=== PATIENT | male | born 1960 | race Caucasian/White ===

== ENCOUNTER → 2017-02-03 11:25 | Outpatient (CLI) | payer MEDICARE ==
[2015-12-18 06:51] VITALS: BMI 35.0
[~2017-02-03 11:25] MED LIST: ADVIL200 MG PO; BAYER CHEWABLE81 MG PO; CLARITIN 10 MG10 MG PO; IMDUR30 MG PO; IPRAT-ALBUT 0.5-3 ML UPD; ISOSORBIDE DINI30 MG PO; LIPITOR20 MG PO; LISINOPRIL10 MG PO; MULTIPLE VITAMI1 TA1 PO; NEXIUM20 MG PO; NEXIUM40 MG PO; NITROSTAT0.4 MG SL; PLAVIX75 MG PO; PREVACID15 MG PO; PROVENTIL HFA6.7 GM; PROVENTIL HFA6.7 GM INH; REQUIP0.5 MG PO; SINGULAIR10 MG PO; SYMBICORT 16010.2 GM INH; SYMBICORT 80-10.2 GM INH; THEO-24200 MG PO; THEOCHRON200 MG PO; VITAMIN B-1000 MCG/M IM; VITAMIN B-122500 MCG PO; XANAX0.5 MG PO; ZOLOFT50 MG PO
== END | disposition home or self-care (01) ==
LOC: D.CT 11:25
DX: R10.31 Right lower quadrant pain (principal)

== ENCOUNTER → 2017-04-14 08:40 | Outpatient (CLI) | payer MEDICARE ==
[2015-12-18 06:51] VITALS: BMI 35.0
--- NOTE | ~2017-04-14 | EMG ---
PATIENT:MARCELLUS EDWARDS DATE OF SERVICE: 04/14/17 MEDICAL RECORD: [id number] DATE OF : 64 LOCATION: [facility] ADMISSION DATE: REFERRING PHYSICIAN: CLEVELAND MATTSON MD INTERPRETING PHYSICIAN: CLEVELAND MATTSON MD DATE OF SERVICE: 04/14/2017 Referred by myself as an outpatient. DATE OF EXAMINATION: 04/14/2017. ELECTROMYOGRAPHIC DATA: Electromyographic examination is limited to both upper extremities. In the right upper extremity; right median motor stimulation elicits a compound motor action potential with a distal latency of 4.0 milliseconds, peak amplitude of 3 millivolts, and calculated conduction velocity of 42 meters per second. Right ulnar motor stimulation elicits a compound motor action potential with a distal latency of 2.9 milliseconds, peak amplitude of 8 millivolts, and calculated conduction velocity of 62 meters per second. Right ulnar motor stimulation across the elbow fails to elicit evidence of conduction block at this level. Antidromic right median sensory stimulation elicits a response with a distal latency of 4.1 milliseconds, amplitude of 14 microvolts, and calculated conduction velocity of 53 meters per second. Antidromic right ulnar sensory stimulation elicits a response with a distal latency of 3.6 milliseconds, amplitude of 9 microvolts, and calculated conduction velocity of 41 meters per second. The right median F wave has a latency of 26 milliseconds. In the left upper extremity; left median motor stimulation elicits a compound motor action potential with a distal latency of 4.1 milliseconds, peak amplitude of 3 millivolts, and calculated conduction velocity of 57 meters per second. Left ulnar motor stimulation elicits a compound motor action potential with a distal latency of 2.8 milliseconds, peak amplitude of 6 millivolts, and calculated conduction velocity of 61 meters per second. Left ulnar motor stimulation across the elbow fails to elicit evidence of conduction block at this level. Antidromic left median sensory stimulation elicits a response with a distal latency of 3.7 milliseconds, amplitude of 12 microvolts, and calculated conduction velocity of 70 meters per second. Antidromic left ulnar sensory stimulation elicits a response with a distal latency of 3.1 milliseconds, amplitude of 8 microvolts, and calculated conduction velocity of 50 meters per second. The left median F wave has a latency of 27 milliseconds. Needle electrode examination is limited to both upper extremities as well. Muscles interrogated include the abductor pollicis brevis, first dorsal interosseous, abductor digiti minimi, pronator teres, biceps brachii, triceps and deltoid. There is no abnormality of insertional activity and no abnormal spontaneous activity is seen in all muscles interrogated. Motor unit potential morphology and the pattern of motor unit potential firing and recruitment is normal in all muscles sampled. INTERPRETATION: Electromyographic examination of both upper extremities is indicative of median neuropathy, at or distal to the wrists bilaterally, right greater than left, mild to moderate in degree electrically on the right, consistent with the diagnosis of bilateral carpal tunnel syndrome. There is no ELECTROMYGRAM/NERVE CONDUCTION [id number] MARCELLUS EDWARDS electrical evidence of a superimposed cervical radiculopathy or other lesion of the lower motor neuron in the upper extremities at this time. There is no evidence of active denervation. TRANSINT:[id number] Voice Confirmation ID: [id number] DOCUMENT ID: [id number] CLEVELAND MATTSON MD CC: [id number] DICTATION DATE: 04/15/17 0755 PRESCHOOL PARAPROFESSIONAL: 04/15/17 1245 DEP CLI 04/14/17 [id number] [place] [address]
== END | disposition home or self-care (01) ==
LOC: D.CN 08:40
DX: G56.00 Carpal tunnel syndrome, unspecified upper limb (principal); M72.2 Plantar fascial fibromatosis; G60.9 Hereditary and idiopathic neuropathy, unspecified

== ENCOUNTER 2017-05-17 08:51 | Day surgery (SDC) | payer MEDICARE ==
[2017-05-17] MEDS ORDERED: PROTONIX40 MG PO (09:08)
[2017-05-17] MEDS ORDERED: SYMBICORT 16010.2 GM INH (09:09)
[2017-05-17] MEDS ORDERED: CYMBALTA30 MG PO (09:10)
[2017-05-17] MEDS ORDERED: XANAX0.5 MG PO (09:13)
[2017-05-17] MEDS ORDERED: TUMERIC CURCUMIN (09:14)
[2017-05-17] MEDS ORDERED: VENTOLIN HFA18 GM INH (09:15)
[2017-05-17 09:25] VITALS: BP 121/77; BMI 35.0
[2017-05-17 11:15] LABS: HEMATOCRIT 37.6 % (42.0-54.0); HEMOGLOBIN 13.2 g/dL (13.5-17.5); MCH 29.7 pg (26.0-34.0); MCHC 35.1 g/dL (31.0-37.0); MCV 84.7 fL (80.0-100.0); MEAN PLATELET VOLUME 9.4 fL (7.4-10.4); RBC 4.44 10x6/uL (4.20-6.10); RDW 12.8 % (11.5-14.5); WBC 5.1 10x3/uL (4.8-10.8)
[2017-05-17] MEDS ORDERED: MEPERIDINE HCL50 MG PO (11:41)
--- NOTE | 2017-05-17 16:46 | OP ---
PATIENT NAME: MARCELLUS EDWARDS MEDICAL RECORD: [id number] :64 LOCATION:D.OPS ADMISSION DATE: SURGEON: MARCOS ZACARIAS MD DATE OF OPERATION: 05/17/2017 PREOPERATIVE DIAGNOSIS: Carpal tunnel syndrome of the right hand wrist. POSTOPERATIVE DIAGNOSIS: Carpal tunnel syndrome of the right hand wrist. PROCEDURE: Carpal tunnel release, right wrist. SURGEON: Marcos Zacarias MD ANESTHESIA: General. INTRAOPERATIVE COMPLICATIONS: None. SUMMARY OF PATHOLOGIC FINDINGS: The patient had a very large very tight transverse carpal ligament consistent with the preoperative diagnosis, EMGs, and NCVS. OPERATIVE SUMMARY IN DETAIL: After obtaining the appropriate preoperative orthopedic surgery consent as well as anesthetic consultation, evaluation and clearance, the patient was brought to the operating room and placed on the operating table in supine position. After adequate regional anesthesia had been administered and checked this anesthesia was regional, tourniquet was placed about the proximal aspect of the right upper extremity. Right upper extremity was prepped and draped in routine sterile fashion. The arm was elevated and exsanguinated, tourniquet inflated to 250 mmHg. An incision made in line to the mid palmar crease, fourth metacarpal ray, taken down to the distal aspect. The transverse carpal ligament was identified. A small incision made and the median nerve was identified. The very robust and thickened transverse carpal ligament was released in its entirety under direct visualization of the nerve. Having completed this, wound was copiously irrigated and closed with 4-0 Prolene with combination of mattress and interrupted sutures. After finishing this, sterile dressings were applied. Tourniquet was deflated. The patient was then taken to recovery room in stable condition. All final needle and sponge counts were correct. TRANSINT:[id number] Voice Confirmation ID: [id number] DOCUMENT ID: [id number] MARCOS ZACARIAS MD at 1646 CC: [id number] DICTATION DATE: 05/17/17 1317 DELIVERY REPRESENTATIVE: 05/17/17 1413 [facility] 05/17/17 [facility] [address] [place] [address]
== END 2017-05-17 12:50 | disposition home or self-care (01) ==
LOC: D.OPS 08:51 → D.PAN 19:00 → D.OPS 19:00
PROVIDERS: Orthopaedic Surgery
DX: G56.01 Carpal tunnel syndrome, right upper limb (principal); J45.909 Unspecified asthma, uncomplicated; J44.9 Chronic obstructive pulmonary disease, unspecified; G47.30 Sleep apnea, unspecified; K21.9 Gastro-esophageal reflux disease without esophagitis; I10 Essential (primary) hypertension; I25.10 Atherosclerotic heart disease of native coronary artery without angina pectoris; G25.81 Restless legs syndrome; Z01.812 Encounter for preprocedural laboratory examination

== ENCOUNTER 2017-06-10 07:56 | Day surgery (SDC) | payer MEDICARE ==
[~2017-06-10] VITALS: Ht 172.7 cm; Wt 108.4 kg
[~2017-06-10 07:56] MED LIST changes: +CYMBALTA30 MG PO; +MEPERIDINE HCL50 MG PO; +PROTONIX40 MG PO; +TUMERIC CURCUMIN; +VENTOLIN HFA18 GM INH
[2017-06-10 08:41] VITALS: BP 115/84; Ht 172.7 cm; Wt 108.4 kg
[2017-06-10 09:17] LABS: HEMATOCRIT 42.8 % (42.0-54.0); HEMOGLOBIN 14.8 g/dL (13.5-17.5); MCH 29.9 pg (26.0-34.0); MCHC 34.6 g/dL (31.0-37.0); MCV 86.5 fL (80.0-100.0); MEAN PLATELET VOLUME 9.2 fL (7.4-10.4); RBC 4.95 10x6/uL (4.20-6.10); WBC 6.9 10x3/uL (4.8-10.8)
--- NOTE | 2017-06-10 16:02 | NUR ---
1345 IV DC WITH CATHER TIP INTACT
--- NOTE | 2017-07-12 14:52 | OP ---
PATIENT NAME: MARCELLUS EDWARDS MEDICAL RECORD: [id number] :64 LOCATION:D.OPS ADMISSION DATE: SURGEON: MARCOS ZACARIAS MD DATE OF OPERATION: 06/10/2017 PREOPERATIVE DIAGNOSIS: Carpal tunnel syndrome of the left wrist. POSTOPERATIVE DIAGNOSIS: Carpal tunnel syndrome of the left wrist. PROCEDURE: Left carpal tunnel release. SURGEON: Marcos Zacarias MD ANESTHESIA: General. INTRAOPERATIVE COMPLICATIONS: None. SUMMARY OF PATHOLOGIC FINDINGS: The patient had a very tight transverse carpal ligament consistent with the preoperative diagnosis. OPERATIVE SUMMARY IN DETAIL: After obtaining the appropriate preoperative orthopedic surgery consent as well as anesthetic consultation, evaluation and clearance, the patient was brought to the operating room and placed on the operating table in supine position. After adequate general laryngeal mask airway was administered, the patient's left upper extremity was prepared with a tourniquet about the proximal aspect. Upper extremity was then prepped and draped in routine sterile fashion. The arm was elevated and exsanguinated, tourniquet was inflated to 350 mmHg. A proximal palmar incision was made in line with the fourth metacarpal taken down to the level of the transverse carpal ligament. This was identified. A small incision was made and the median nerve was identified. At this point, it was protected through the rest of the case with the Mccormick elevator and then under direct visualization, the entire transverse carpal ligament was released to the proximal wrist crease. Having completed this, the wound was irrigated and closed with 4-0 Prolene in a combination of simple and mattress sutures. The area was locally infiltrated with 0.25% Marcaine plain. Sterile dressings were applied. Tourniquet was deflated. The patient was awakened, taken to recovery in stable condition. All final needle and sponge counts were correct. TRANSINT:[id number] Voice Confirmation ID: [id number] DOCUMENT ID: [id number] DEANN GARCIA, MARCOS MONTEIRO at 1452 CC: [id number] DICTATION DATE: 07/12/17 1318 WEB PRESS OPERATOR ASSISTANT: 07/12/17 1333 [facility] 06/10/17 [place] [address]
== END 2017-06-10 14:00 | disposition home or self-care (01) ==
LOC: D.OPS 07:56 → D.PAN 14:00
PROVIDERS: Anesthesiology
DX: G56.02 Carpal tunnel syndrome, left upper limb (principal)

== ENCOUNTER 2017-06-28 07:36 | Outpatient (CLI) | payer MEDICARE ==
[~2017-06-28] VITALS: Ht 172.7 cm; Wt 104.5 kg
--- NOTE | ~2017-06-28 | HEMODYNAMI ---
PATIENT:MARCELLUS EDWARDS MEDICAL RECORD: [id number] : 64 LOCATION:D.CAT ADMISSION DATE: 06/28/17 Generatedon:06/28/20179:33 Patient name: MARCELLUS EDWARDS Patient #: [id number] SSN: : 1960 Date of study: 06/28/2017 Page: Of Hemodynamic Procedure Report Patient Data Patient Demographics Procedure consent was obtained First Name: MARCELLUS Gender: Male Last Name: GRACE : 1960 Middle Initial: PAUL Age: 56 year(s) Patient #: [id number] Race: Additional ID: [id number] Contact details [address]: [address] [place] [address] [address]IVE State: [place] City: [place] Zip code: [address] Past Medical History History of disease Date Diagnosis Comments CAD COPD Valvular heart disease Allergies Allergen Reaction Date Comments Reported Other allergy 08/10/2014 hydrocodone Penicillins 08/10/2014 Other allergy 06/28/2017 PCN, HYDROCODONE, BIAXIN Admission Admission Data Admission Date: 06/28/2017 Admission Time: 7:36 Admit Source: Other Height (in.): 5.8 BSA: 0.36 (m2) Height (cm.): 14.73 BMI: 4806.95 (kg/m2) Weight (lbs.): 230 Weight (kg.): 104.33 Lab Results Lab Result Date: 06/28/2017 Lab Result Time: 0:00 Biochemistry Name Units Result Min Max BUN mg/dl 17 --(---*)-- 7 18 Creatinine mg/dl 1.2 --(---*)-- 0.6 1.3 CBC Name Units Result Min Max Hemoglobin g/dl 15.5 --(-*--)-- 13.5 17.5 Procedure Procedure Types Cath Procedure Diagnostic Procedure LHC LH w/Coronaries FFR/IVUS Intra-Coronary IVUS Initial Intra-Coronary IVUS Additional Miscellaneous Procedures Moderate Sedation up to 30 minutes Procedure Description Procedure Date Procedure Date: 06/28/2017 Procedure Start Time: 9:13 Procedure End Time: 9:31 Procedure Staff Name Function Derek Khan MD Performing Physician Minal Bashir RT Monitor Nathaniel Reyes RT Monitor Facundo Jackson RT Scrub Alejandro Zapata RN Nurse Procedure Data Cath Procedure Fluoroscopy Diagnostic fluoroscopy Total fluoroscopy Time: 5 time: 5 min min Diagnostic fluoroscopy Total fluoroscopy dose: 702 dose: 702 mGy mGy Contrast Material Contrast Material Type Amount (ml) Isovue 300 98 Entry Location Entry Primary Successful Side Size Upsize Upsize Entry Closure Boone ccessful Closure Location (Fr) 1 (Fr) 2 (Fr) Remarks Device Remarks Radial Right 6 Fr Mechanical TR BAND artery Short Compression Estimated blood loss: 10 ml Diagnostic catheters Device Type Used For End Catheter Placement DIAGNOSTIC [place] 110cm 5 Procedure Fr catheter ([id number]) Procedure Complications No complications Procedure Medications Medication Administration Route Dosage 0.9% NaCl I.V. 100 ml/hr Oxygen NC 2 l/min Lidocaine 2% added to field 20 Heparin Flush Bag added to field 2 bags (1000units/500ml NS) Radial Cocktail added to field 1 syringe (Verapomil 2mg/Nitro 400mcg/Heparin 1500units) Versed I.V. 2 mg Fentanyl I.V. 100 mcg Radial Cocktail I.A. 1 syringe (Verapomil 2mg/Nitro 400mcg/Heparin 1500units) Versed I.V. 1 mg Heparin Bolus I.V. 4000 units Versed I.V. 1 mg Hemodynamics Rest BSA: 0.36 (m2) HGB: 15.5 (g/dl) O2 Consumption: Estimated: 44.71 (ml/min) O2 Con sumption indexed: Estimated:124.19 (ml/min/m) Heart Rate: 85 (bpm) Snapshots Pre Cath Intra NCS Post Cath Vital Signs Time Heart Resp SPO2 etCO2 NIBP (mmHg) Rhythm Pain Sedation Rate (ipm) (%) (mmHg) Status Level (bpm) 8:59:31 83 17 96 0 130/88(104) NSR 0 (11) 10(A) , No pain 9:04:18 83 16 95 28.5 127/79(101) NSR 0 (11) 10(A) , No pain 9:09:01 81 16 95 30 114/89(99) NSR 0 (11) 10(A) , No pain 9:13:43 74 14 93 29.2 120/75(90) NSR 0 (11) 10(A) , No pain 9:18:28 77 15 94 24.7 137/70(92) NSR 0 (11) 10(A) , No pain 9:23:13 80 15 95 32.9 115/68(100) NSR 0 (11) 10(A) , No pain 9:27:53 83 14 96 34.4 105/67(88) NSR 0 (11) 10(A) , No pain Medications Time Medication Route Dose Verified Delivered Reason Notes Effectiveness by by 9:02:31 0.9% NaCl I.V. 100 Alejandro Alejandro Per physician ml/hr Jodi Zapata RN RN 9:02:56 Oxygen NC 2 l/min Alejandro Alejandro Per physician Jodi Zapata RN RN 9:03:13 Lidocaine 2% added 20ml Alejandro Alejandro for local to vial Jodi Zapata anesthetic RN RN 9:03:34 Heparin Flush added 2 bags Alejandro Alejandro used for Bag to Jodi Zapata procedure (1000units/500ml field RN RN NS) 9:04:07 Radial Cocktail added 1 Alejandro Alejandro for (Verapomil to syringe Jodi Zapata vasodilation 2mg/Nitro field RN RN 400mcg/Heparin 1500units) 9:06:09 Versed I.V. 2 mg Alejandro Alejandro for sedation Jodi Zapata RN RN 9:13:37 Fentanyl I.V. 100 mcg Alejandro Alejandro for sedation Jodi Zapata RN RN 9:15:13 Radial Cocktail I.A. 1 Alejandro Derek for (Verapomil syringe Jodi Khan MD vasodilation 2mg/Nitro RN 400mcg/Heparin 1500units) 9:15:29 Versed I.V. 1 mg Alejandro Alejandro for sedation Jodi Zapata RN RN 9:20:25 Heparin Bolus I.V. 4000 Alejandro Alejandro for units Jodi Zapata anticoagulation RN RN 9:29:07 Versed I.V. 1 mg Alejandro Alejandro for sedation Jodi Zapata RN real estate asset manager Log Time Note 8:43:42 Informed consent obtained and on chart 8:45:37 Admit Source: Other 8:45:57 Diagnostic Cath status Elective 8:45:58 Nathaniel Reyes RT(R) sent for patient. Start room use. 8:45:59 Time tracking: Regular hours 8:46:02 Plan of Care:Hemodynamics will remain stable., Cardiac rhythm will remain stable., Comfort level will be maintained., Respiratory function will remain adequate., Patient/ family verbilizes understanding of procedure., Procedure tolerated without complication., Recovers from procedure without complications.. 8:46:37 H&P Date Dictated: 06/24/2017 Within 30 days and on chart., H&P Addendum completed by physician on day of procedure. (MUST COMPLETE FOR ALL OUTPATIENTS). 8:51:57 Patient received from Pre/Post Procedure Room to CCL 1 Alert and oriented. Tansferred to table in Supine position. 8:51:58 Warm blankets applied, and yajaira hugger turned on for patient comfort. 8:51:59 Correct patient and procedure confirmed by team. 8:51:59 ECG and BP/O2 sat monitors applied to patient. 8:52:01 Pre-procedure instructions explained to patient. 8:52:01 Pre-op teaching completed and patient verbalized understanding. 8:52:03 Family in waiting room. 8:52:05 Patient NPO since Midnight. 8:58:35 Vital chart was started 9:02:27 Baseline sample Acquired. 9:02:31 0.9% NaCl 100 ml/hr I.V. was administered by Alejandro Zapata RN; Per physician; 9:02:33 Rhythm: sinus rhythm 9:02:35 Full Disclosure recording started 9:02:56 Oxygen 2 l/min NC was administered by Alejandro Zapata RN; Per physician; 9:03:13 Lidocaine 2% 20ml vial added to field was administered by Alejandro Zapata RN; for local anesthetic; 9:03:22 Patient allergic to Other allergyPCN, HYDROCODONE, BIAXIN 9:03:24 Is the patient allergic to Iodine/contrast media? No. 9:03:27 Is patient on blood thinner?Yes 9:03:29 ACC The patient was administered the following blood thiners within the last 24 hours: ACCPlavix 9:03:34 Heparin Flush Bag (1000units/500ml NS) 2 bags added to field was administered by Alejandro Lorigan RN; used for procedure; 9:03:55 Patient diabetic? No. 9:03:58 Previous problem with sedation/anesthesia? No ? 9:04:00 Snore? Yes 9:04:01 Sleep apnea? Yes 9:04:02 Deviated septum? No 9:04:02 Opens mouth fully? Yes 9:04:04 Sticks out tongue? Yes 9:04:07 Radial Cocktail (Verapomil 2mg/Nitro 400mcg/Heparin 1500units) 1 syringe added to field was administered by Alejandro Zapata RN; for vasodilation; 9:04:13 Airway obstruction? Yes COPD, EMPHYSEMA, ASTHMA 9:04:18 Dentures? Yes OUT 9:04:23 Modified Misha's test Ulnar < 7 seconds 9:04:30 Patient pain scale 0/10 ?. 9:04:37 IV patent on arrival in left antecubital with 0.9% NaCl at [facility]. 9:05:16 Lab Result : Creatinine 1.2 mg/dl 9:05:16 Lab Result : BUN 17 mg/dl 9:05:16 Lab Result : Hemoglobin 15.5 g/dl 9:05:19 Lab results completed and on chart. 9:05:25 Right Radial & Right Groin area was prepped with chlora-prep and draped in sterile fashion 9:05:27 Alarms reviewed by R. N. 9:05:27 Sharps counted by scrub and verified by R.N. 9:05:29 --------ALL STOP TIME OUT------ 9:05:29 Final Timeout: patient, procedure, and site verified with staff and physician. All members of the team are in agreement. 9:05:33 Right Radial & Right Groin site verified by team. 9:05:37 Physical assessment completed. ASA score P 2 - A patient with mild systemic disease as per Derek Khan MD. 9:05:47 Sedation plan: IV Moderate Sedation Medication:Versed, Fentanyl 9:06:09 Versed 2 mg I.V. was administered by Alejandro Zapata RN; for sedation; 9:06:54 Use device set Radial Dx 9:06:55 ACIST Syringe (02319) opened to sterile field. 9:06:56 Medline Cath Pack ([id number]) opened to sterile field. 9:07:01 Tegaderm 4 x 4 (1626W) opened to sterile field. 9:07:05 MBrace Wrist Support ([id number]) opened to sterile field. 9:07:06 ACIST Hand Control (51287) opened to sterile field. 9:07:06 ACIST Manifold (85125) opened to sterile field. 9:07:08 Bag Decanter (2001S) opened to sterile field. 9:07:09 Terumo 6Fr Slender Glidesheath opened to sterile field. 9:07:10 St Francisco 260cm J .035 wire opened to sterile field. 9:09:04 Patient Height : 5.8 inches 9:09:12 Patient Weight : 230 lbs 9:10:28 Zero performed for pressure channel P1 9:10:41 Zero performed for pressure channel P1 9:12:58 Procedure started. 9:13:05 Local anesthetic to right radial artery with Lidocaine 2% by Derek Khan MD.INITIAL ACCESS ONLY 9:13:37 Fentanyl 100 mcg I.V. was administered by Alejandro Zapata RN; for sedation; 9:14:04 A 6 Fr Short sheath was inserted into the Right Radial artery 9:14:37 A DIAGNOSTIC [place] 110cm 5 Fr catheter ([id number]) was advanced over the wire and used for Procedure. 9:15:13 Radial Cocktail (Verapomil 2mg/Nitro 400mcg/Heparin 1500units) 1 syringe I.A. was administered by Derek Khan MD; for vasodilation; 9:15:29 Versed 1 mg I.V. was administered by Alejandro Zapata RN; for sedation; 9:15:32 Injector settings: Ml/sec: 7, Volume: 15, 9:15:38 LV gram done using CAI 9:15:49 LV hemodynamics recorded. 9:16:26 EF : 55 % 9:16:46 RCA angiography performed. 9:16:57 Catheter removed. 9:17:19 GUIDE 6FR XB 3.5 catheter ([id number]) opened to sterile field. 9:17:31 6 Fr XB 3.5 guide catheter was inserted over the wire 9:18:49 LCA angiography performed. 9:19:29 INFLATOR Merit BasixCompak Inflation Kit (GR4748) opened to sterile field. 9:19:50 [place] IVUS Catheter opened to sterile field. 9:20:25 Heparin Bolus 4000 units I.V. was administered by Alejandro Zapata RN; for anticoagulation; 9:20:39 [place] Whisper 190cm wire opened to sterile field. 9:21:01 WHISPER wire advanced. 9:21:35 Wire advanced across lesion. 9:22:06 IVUS catheter advanced over wire. 9:22:28 IVUS pass to Circ lesion performed. 9:22:49 IVUS catheter removed over wire. 9:23:04 Wire removed. 9:23:04 Guide catheter removed. 9:23:15 GUIDE 6FR EBU 3.0 catheter ([id number]) opened to sterile field. 9:23:53 6 Fr EBU 3 guide catheter was inserted over the wire 9:24:44 WHISPER wire advanced. 9:25:18 Wire advanced across lesion. 9:26:11 IVUS catheter advanced over wire. 9:26:40 IVUS pass to LAD lesion performed. 9:27:22 IVUS catheter removed over wire. 9:27:29 Wire removed. 9:27:30 Guide catheter removed. 9:27:46 TR BAND Large ([id number]) opened to sterile field. 9:28:01 Sheath removed intact; hemostasis achieved with Mechanical Compression to the Right Radial artery. 9:28:03 Procedure ended.(Physican Out) 9:28:17 Fluoroscopy time 05.00 minutes. 9:28:21 Fluoroscopy dose: 702 mGy 9:28:21 Flurop Dose total: 702 9:28:36 Contrast amount:Isovue 300 98ml. 9:28:38 Sharps counted by scrub and verified by R.N. 9:28:45 TR band inflated with 10cc of air. 9:29:00 Post-procedure physical assessment completed. ASA score P 2 - A patient with mild systemic disease as per Derek Khan MD. 9:29:04 Post procedure rhythm: unchanged. 9:29:07 Versed 1 mg I.V. was administered by Alejandro Zapata RN; for sedation; 9:29:07 Estimated blood loss: 10 ml 9:29:08 Post procedure instruction explained to patient.Patient verbalizes understanding. 9:29:09 Patient needs reinforcement of post procedure teaching. 9:30:15 Procedure type changed to Cath procedure, Diagnostic procedure, LHC, LHC w/Coronaries, FFR/IVUS, Intra-Coronary IVUS Initial, Intra-Coronary IVUS Additional, Miscellaneous Procedures, Moderate Sedation up to 30 minutes 9:30:53 Procedure and supply charges have been captured, reviewed, submitted and are correct. 9:30:56 Procedure Complication : No complications 9:31:29 Vital chart was stopped 9:31:29 See physician's report for complete and final results. 9:31:35 Report given to Pre/Post Procedure Room. 9:31:38 Patient transfered to Pre/Post Procedure Room with Bed. 9:31:40 Procedure ended. 9:31:40 Full Disclosure recording stopped 9:32:46 End room use (Document Last) Device Usage Item Name Manufacture Quantity Catalog Hospital Part Current Minimal Lot# / Number Charge Number Stock Stock Serial# Code ACIST Acist 1 27724 215536 438311 949028 20 Syringe Medical (32153) Systems Inc Medline Cardinal 1 [id number] 39156 072999 5 Cath Pack Health ([id number]) Tegaderm 4 3M 1 1626W 554870 710221 682162 5 x 4 (1626W) MBrace Advanced 1 140-0250-00 347861 21305 721500 5 Wrist Vascular Support Dynamics ([id number]) ACIST Hand Acist 1 19048 138849 931401 861273 5 Control Medical (32445) Systems Inc ACIST Acist 1 32760 874371 297635 468338 5 Manifold Medical (26954) Systems Inc Bag Microtek 1 411648 31927 032280 5 Decanter Medical Inc. () Terumo 6Fr Terumo 1 [id number] 683647 168964 899014 [address] St Franicsco 1 707251 648739 844226 350164 30 260cm J .035 wire DIAGNOSTIC Terumo 1 40-5366 305189 873855 584157 5 [place] 110cm 5 Fr catheter (902057) GUIDE 6FR Cardinal 1 [id number] 442520 464694 303319 2 XB 3.5 Health catheter ([id number]) INFLATOR [facility] 1 HS3572 524870 098158 799053 15 Hellotravel BasixCompak Inflation Kit (EM8835) [place] 1 04027D 214994 396416 307629 8 [place] IVUS Catheter Hoyos Hoyos 1 [id number] 802384 017913 921185 5 Whisper Vascular 190cm wire GUIDE 6FR Medtronic 1 [id number] 180099 09150 971720 0 EBU 3.0 catheter ([id number]) TR BAND Terumo 1 [id number] 979870 041339 026878 40 Large (HIU30MNF) Signature Audit [place] Stage Time Signature Unsigned Intra-Procedure 06/28/2017 Minal Bashir 9:33:03 AM RT(R) Signatures Monitor : Minal Bashir Signature : RT Date : Time : Monitor : Nathaniel Reyes RT Signature : Date : Time : [address] [address] [address] [place] [address]
[2017-06-28] MEDS ORDERED: TYLENOL W/CODEI1 TAB PO (08:02)
[2017-06-28 08:03] LABS: EOSINOPHILS 6.2 % (0-7); HEMATOCRIT 43.3 % (42.0-54.0); HEMOGLOBIN 15.5 g/dL (13.5-17.5); IMMATURE GRANULOCYTES 0.6 % (0-5); LYMPHOCYTES 27.9 % (15-50); MCH 30.3 pg (26.0-34.0); MCHC 35.8 g/dL (31.0-37.0); MCV 84.6 fL (80.0-100.0); MEAN PLATELET VOLUME 9.3 fL (7.4-10.4); MONOCYTES 10.1 % (2-11); NEUTROPHILS 54.2 % (40-80); PLATELET COUNT 293 10x3/uL (130-400); RBC 5.12 10x6/uL (4.20-6.10); RDW 12.6 % (11.5-14.5); WBC 5.1 10x3/uL (4.8-10.8)
[2017-06-28] MEDS ORDERED: VOLTAREN75 MG PO (08:03)
[2017-06-28 08:11] VITALS: BP 143/90; Ht 172.7 cm; Wt 104.5 kg
[2017-06-28 08:16] LABS: ANION GAP 16.6 mmol/L (8-16); CALCIUM 9.5 mg/dL (8.5-10.1); CARBON DIOXIDE 24.1 mmol/L (21.0-32.0); CREATININE - SERUM 1.2 mg/dL (0.6-1.3); POTASSIUM - SERUM 3.7 mmol/L (3.5-5.1)
--- NOTE | 2017-06-28 10:00 | NUR ---
TR BAND TO R/WRIST CDI NO BLEEDING NO HEMATOMA NOTED. VSS WITH CHEST PAIN DENIED FAMILY AT SIDE
--- NOTE | 2017-06-28 10:14 | NUR ---
NO COMPLAINTS OF NAUSEA WITH SODA AND SANDWICH TO BEDSIDE VSS WITH TR BAND TO R/WRIST
--- NOTE | 2017-06-28 11:01 | NUR ---
RESTING QUIELTY WITH NO DISTRESS NOTED VSS AND TR BAND TO R/WRIST CDI WILL CONTINUE TO MONITOR
--- NOTE | 2017-06-28 11:37 | NUR ---
DR SHIPLEY AT BEDSIDE WITH PATIENT AND FAMILY VSS AND TR BAND TO R/WRIST REMAINS CDI NO BLEEDING NO HEMATOMA NOTED.
--- NOTE | 2017-06-28 12:15 | NUR ---
RESTING QUIETLY WITH EYES CLOSED VSS NO DISTRESS NOTED
--- NOTE | 2017-06-28 13:04 | NUR ---
2 CC AIR REMOVED FROM TR BAND WITH NO BLEEDING NO HEMATOMA NOTED
--- NOTE | 2017-06-28 13:10 | NUR ---
4 CC AIR REMOVED FROM TR BAND WITH NO BLEEDING NO HEMATOMA NOTED
--- NOTE | 2017-06-28 13:17 | NUR ---
4 CC AIR REMOVED FROM TR BAND WITH NO BLEEDING NO HEMATOMA NOTED. PIV REMOVED WITH DRESSING APPLIED. PATIENT UP TO GET DRESSED FOR DISCHARGE HOME
--- NOTE | 2017-06-28 13:25 | NUR ---
TR BAND REMOVED WITH DRESSING APPLIED. VERBAL AND WRITTEN DISCHARGE GONE OVER WITH PATIENT AND FAMILY CHEST PAIN IS DENIED
--- NOTE | 2017-06-28 13:40 | NUR ---
1330 DRESSING TO RIGHT WRIST REMAINS CDI, NO BLEEDING OR HEMATOMA NOTED. PT HAS VOIDED QS. PT ESCORTED TO PRIVATE AUTO VIA WC BY NURSE WITH FAMILY DRIVING HIM HOME. PT DENIES ANY C/O UPON DC.
--- NOTE | 2017-07-06 12:14 | OP ---
PATIENT NAME: MARCELLUS EDWARDS MEDICAL RECORD: [id number] :64 LOCATION:D.CAT ADMISSION DATE: SURGEON: HAYES SHIPLEY MD DATE OF OPERATION: 06/28/2017 PROCEDURES: 1. Intravascular ultrasound of the LAD. 2. Intravascular ultrasound of the left circumflex. 3. Left heart catheterization. 4. Selective coronary angiography. 5. Left ventriculogram. INDICATIONS: Chest pain compatible with angina, coronary artery disease, and previous cardiac stenting. PROCEDURE IN DETAIL: After informed consent was obtained and after a detailed explanation of the risks, benefits as well as alternative therapies, the patient elected to proceed with angiogram and heart catheterization. The right radial area was prepped and draped in normal sterile fashion. Right radial artery was cannulated via modified Seldinger technique with placement of 6-Ghanaian sheath. All catheters exchanged through this sheath. FINDINGS: The left ventriculogram was performed in the standard 30-degree CAI view, reveals good cardiac wall motion throughout all segments. Overall ejection fraction 55% to 60%. SELECTIVE CORONARY ANGIOGRAPHY: 1. Left main is with no significant angiographic disease. 2. Left anterior descending has fgvl-[id number] irregularities, no stenosis greater than 40% confirmed by intravascular ultrasound. 3. The left circumflex has previously placed stent that is widely patent with no significant restenosis. No disease elsewise confirmed by intravascular ultrasound nothing greater than 30%. 4. Right coronary has moderate irregularities but no flow-limiting stenosis. OVERALL IMPRESSION: Wide patency of the previously placed stent. No disease elsewhere. Continue medical management of the coronary artery disease and cardiac risk factors. TRANSINT:[id number] Voice Confirmation ID: [id number] DOCUMENT ID: [id number] HAYES SHIPLEY MD at 1214 CC: [id number] DICTATION DATE: 06/28/17 0931 ENROBER: 06/28/17 1141 DEP CLI 06/28/17 [id number] [place] [address]
== END 2017-06-28 13:30 | disposition home or self-care (01) ==
LOC: D.CATH 07:36
PROVIDERS: Internal Medicine Interventional Cardiology
DX: I25.119 Atherosclerotic heart disease of native coronary artery with unspecified angina pectoris (principal); Z95.5 Presence of coronary angioplasty implant and graft; R06.09 Other forms of dyspnea; I10 Essential (primary) hypertension; E78.5 Hyperlipidemia, unspecified; Z87.891 Personal history of nicotine dependence; Z01.812 Encounter for preprocedural laboratory examination

== ENCOUNTER → 2017-09-14 09:46 | Outpatient (CLI) | payer MEDICARE ==
[2017-06-28 08:11] VITALS: BMI 35.0
[~2017-09-14 09:46] MED LIST changes: +TYLENOL W/CODEI1 TAB PO; +VOLTAREN75 MG PO
== END | disposition home or self-care (01) ==
LOC: D.CT 09:46
DX: R91.1 Solitary pulmonary nodule (principal)

== ENCOUNTER → 2017-10-25 08:11 | Outpatient (CLI) | payer MEDICARE ==
[2017-06-28 08:11] VITALS: BMI 35.0
== END | disposition home or self-care (01) ==
LOC: D.US 08:11
DX: E04.1 Nontoxic single thyroid nodule (principal)

== ENCOUNTER → 2017-12-03 08:39 | Outpatient (CLI) | payer MEDICARE ==
[2017-06-28 08:11] VITALS: BMI 35.0
== END | disposition home or self-care (01) ==
LOC: D.CT 08:39
DX: R91.1 Solitary pulmonary nodule (principal)

== ENCOUNTER 2017-12-28 06:29 | Day surgery (SDC) | payer MEDICARE ==
[~2017-12-28] VITALS: Ht 172.7 cm; Wt 99.1 kg
--- NOTE | ~2017-12-28 | HP ---
PATIENT: MARCELLUS EDWARDS MEDICAL RECORD: [id number] ACCOUNT: [id number] LOCATION:[place] : 64 ADMISSION DATE: 12/28/17 HISTORY AND PHYSICAL EXAMINATION CHIEF COMPLAINT: Loya's esophagus and history of colon polyps. HISTORY OF PRESENT ILLNESS: The patient is here for upper endoscopy with biopsies which is a surveillance upper endoscopy as well as a colonoscopy, which is a surveillance colonoscopy. He has had no rectal bleeding. He does have abdominal pain, but it is in the left lower quadrant. He is a volume refluxer. He refluxes up into the back of his throat frequently. He describes his reflux as severe. Sometimes, he even wakes up hoarse which indicates to me that he is likely having aspiration with reflux. I told him about a laparoscopic hiatal hernia repair and he does have some interest in that procedure and he will let us know if he wants to undergo that type of procedure. I have performed excision of lipomas in the past. The patient was found to have Loya's when I performed an upper endoscopy on him in November 2015. The Loya's was negative for dysplasia. PAST MEDICAL AND SURGICAL HISTORY: Coronary artery disease, COPD, sleep apnea. He is on 2 liters oxygen at night, history of coronary stents times 1, gastroesophageal reflux, history of hernia repair, history of hemorrhoid repair, history of carpal tunnel release, history of removal of lipomas, history of knee arthroscopy, history of cholecystectomy, history of 2-level neck operation, history of thyroid nodule, restless leg syndrome, vertigo, anxiety, and depression. HOME MEDICATIONS: Please see the nursing list. ALLERGIES: PENICILLIN, HYDROCODONE, AND BIAXIN. PHYSICAL EXAMINATION: GENERAL: The patient does not appear acutely ill. He does not appear chronically ill. VITAL SIGNS: Reviewed. EARS: External ears appear normal. EYES: Extraocular movements are intact. NECK: Trachea is midline. CHEST: No intercostal retractions. PULMONARY: Nonlabored, no stridor. ABDOMEN: No peritonitis with movement. IMPRESSION: 1. Loya's in need of surveillance upper endoscopy with biopsies. 2. History of colon polyps in need of surveillance colonoscopy. PLAN: 1. EGD with biopsies. 2. Surveillance colonoscopy. TRANSINT:[id number] Voice Confirmation ID: [id number] DOCUMENT ID: [id number] HISTORY AND PHYSICAL [id number] GRACEZACARIAS PARIKH MD at 1126 CC: JINA WESTFALL DO and HAYES SHIPLEY [id number] DICTATION DATE: 12/28/1736 [facility] LEVERMAN: 12/28/1756 [facility] 12/28/17 [id number] [place] [address]
--- NOTE | ~2017-12-28 | OP ---
PATIENT NAME: MARCELLUS EDWARDS MEDICAL RECORD: [id number] :64 LOCATION:D.OPS ADMISSION DATE: SURGEON: SAGAR HAWKINS MD DATE OF OPERATION: 12/28/2017 PREOPERATIVE DIAGNOSES: 1. History of Loya esophagus, in need of surveillance upper endoscopy with biopsies. 2. History of colon polyps, in need of surveillance colonoscopy. POSTOPERATIVE DIAGNOSES: 1. History of Loya esophagus, in need of surveillance upper endoscopy with biopsies. 2. History of colon polyps, in need of surveillance colonoscopy. 3. Moderately sized hiatal hernia. 4. Two colon polyps, sessile, both smaller than 1.0 cm. 5. One antral erosion. PROCEDURE: 1. Esophagogastroduodenoscopy with antral and distal esophageal biopsies. 2. Total colonoscopy to cecum. 3. Hot biopsy forceps polypectomies times 2. SURGEON: Sagar Hawkins MD DIRECTOR CREDIT RISK: None. BLOOD LOSS: Minimal. ANESTHESIA: Topical oral anesthesia with IV sedation. COMPLICATIONS: None. The risks, possible complications and alternatives to procedure were explained. A consent form was signed. ENDOSCOPIC COURSE: The patient was conveyed to the endoscopy suite electively on 12/28/2017. IV sedation was induced by the anesthesia staff. A bite block was inserted. A gastroscope was inserted through the mouth. It was advanced easily into the hypopharynx. The esophagus was easily intubated as were the stomach and duodenum. Upon withdrawal, retroflexed and angulus views were obtained. Antral biopsies were obtained. Distal esophageal biopsies were obtained. The endoscope was then withdrawn under direct vision. The patient was turned 180 degrees and placed in the Russell position. A digital rectal examination was performed. The prostate was of normal size, was symmetric, and was without nodules. A colonoscope was inserted through the anus. It was easily advanced to the cecum. The prep was adequate. I slowly withdrew the endoscope. The pullback was greater than a 15-minute pullback. A combination of normal imaging and narrow band imaging were utilized. Two hot biopsy forceps polypectomies were performed. I dragged the folds. A retroflexed view was obtained into the rectum. I then unretroflexed the scope and removed it under direct vision. OPERATIVE REPORT [id number] MARCELLUS EDWARDS I will plan to see the patient in my office in 2-3 weeks. It appears that he has had some regression of the Loya's esophagus. The patient may be interested in an antireflux procedure in the future as he is a volume refluxer. I will plan for his next upper endoscopy with biopsies, which will be a surveillance upper endoscopy, take place in 3 years as there has been some regression of the Loya's. At the same time in 3 years, we can perform the next surveillance colonoscopy. TRANSINT:[id number] Voice Confirmation ID: [id number] DOCUMENT ID: [id number] SAGAR HAWKINS MD at 1126 CC: JINA WESTFALL DO [id number] DICTATION DATE: 12/28/17 1033 ELECTRIC SPOT WELDER: 12/28/17 1145 [facility] 12/28/17 [facility] [address] [place] [address]
[2017-12-28 06:42] LABS: BASOPHILS 1.2 % (0-2); EOSINOPHILS 6.5 % (0-7); HEMATOCRIT 44.6 % (42.0-54.0); HEMOGLOBIN 15.9 g/dL (13.5-17.5); IMMATURE GRANULOCYTES 0.6 % (0-5); LYMPHOCYTES 37.7 % (15-50); MCHC 35.7 g/dL (31.0-37.0); MCV 84.2 fL (80.0-100.0); MEAN PLATELET VOLUME 9.2 fL (7.4-10.4); MONOCYTES 6.9 % (2-11); NEUTROPHILS 47.1 % (40-80); PLATELET COUNT 269 10x3/uL (130-400); RDW 12.7 % (11.5-14.5); WBC 7.3 10x3/uL (4.8-10.8)
[2017-12-28 07:10] LABS: ANION GAP 13.2 mmol/L (8-16); CALCIUM 9.3 mg/dL (8.5-10.1); CARBON DIOXIDE 28.6 mmol/L (21.0-32.0); CREATININE - SERUM 1.2 mg/dL (0.6-1.3); POTASSIUM - SERUM 3.8 mmol/L (3.5-5.1)
[2017-12-28 08:08] VITALS: BP 110/59; Ht 172.7 cm; Wt 99.1 kg
== END 2017-12-28 11:25 | disposition home or self-care (01) ==
LOC: D.OPS 06:29
PROVIDERS: Anesthesiology
DX: K63.5 Polyp of colon (principal); K44.9 Diaphragmatic hernia without obstruction or gangrene; I25.10 Atherosclerotic heart disease of native coronary artery without angina pectoris; J44.9 Chronic obstructive pulmonary disease, unspecified; G47.30 Sleep apnea, unspecified; K21.9 Gastro-esophageal reflux disease without esophagitis; Z01.812 Encounter for preprocedural laboratory examination

== ENCOUNTER 2018-07-29 22:28 | Inpatient (IN) | payer OTHER ==
[~2018-07-29] VITALS: Ht 172.7 cm; Wt 108.2 kg
[~2018-07-29 22:28] MED LIST changes: -TUMERIC CURCUMIN; +TUMERIC CURCUMIN PO
[2018-07-29] MEDS ORDERED: CYMBALTA30 MG PO (22:39)
[2018-07-29] MEDS ORDERED: WELCHOL3.75 GM PO (22:41)
[2018-07-29 23:05] LABS: BASOPHILS 0.6 % (0-2); EOSINOPHILS 2.4 % (0-7); HEMATOCRIT 43.8 % (42.0-54.0); HEMOGLOBIN 15.7 g/dL (13.5-17.5); IMMATURE GRANULOCYTES 0.6 % (0-5); LYMPHOCYTES 23.5 % (15-50); MCH 30.1 pg (26.0-34.0); MCHC 35.8 g/dL (31.0-37.0); MCV 84.1 fL (80.0-100.0); MEAN PLATELET VOLUME 9.1 fL (7.4-10.4); MONOCYTES 6.3 % (2-11); NEUTROPHILS 66.6 % (40-80); PLATELET COUNT 286 10x3/uL (130-400); RBC 5.21 10x6/uL (4.20-6.10); RDW 12.8 % (11.5-14.5); WBC 12.2 10x3/uL (4.8-10.8)
[2018-07-29 23:24] LABS: ALKALINE PHOSPHATASE 92 U/L (46-116); ALT (SGPT) 38 U/L (10-68); BILIRUBIN - TOTAL 0.53 mg/dL (0.2-1.3); CALC OSMOLALITY 276 mosm/kg (275-300); CALCIUM 8.9 mg/dL (8.5-10.1); CARBON DIOXIDE 24.2 mmol/L (21.0-32.0); CHLORIDE - SERUM 102 mmol/L (98-107); CREATININE - SERUM 1.1 mg/dL (0.6-1.3); GLUCOSE 133 mg/dL (74-106); POTASSIUM - SERUM 3.6 mmol/L (3.5-5.1); PROTEIN - SERUM 7.5 g/dL (6.4-8.2); SODIUM 137 mmol/L (136-145); UREA NITROGEN 16 mg/dL (7-18); eGFR NON AFRICAN AMERICAN 73 mL/min (90-120)
[2018-07-29 23:27] LABS: AMYLASE - SERUM 30 U/L (25-115); LIPASE 197 U/L (73-393); TROPONIN-I < 0.017 ng/mL (0.000-0.060)
[2018-07-30] VITALS (12 sets, daily range): BP systolic 103–143; BP diastolic 64–89; Ht 172.7 cm; Wt 108.2 kg
--- NOTE | 2018-07-30 00:19 | NUR ---
PT UNABLE TO HOLD DOWN ORAL CONTRAST. PA INFORMED.SEE EMAR.
[2018-07-30 01:58] LABS: APPEARANCE CLEAR (CLEAR); BILIRUBIN NEGATIVE (NEGATIVE); COLOR YELLOW (YELLOW); GLUCOSE NEGATIVE (NEGATIVE); KETONE NEGATIVE (NEGATIVE); NITRITE NEGATIVE (NEGATIVE); PROTEIN NEGATIVE (NEGATIVE); UROBILINOGEN NORMAL (NORMAL)
[2018-07-30] MEDS ORDERED: VENTOLIN HFA18 GM INH (03:33)
[2018-07-30] MEDS ORDERED: CRESTOR10 MG PO (03:34)
[2018-07-30] MEDS ORDERED: MAXITROL EYE DRO5 ML RIGHT EYE (03:37)
--- NOTE | 2018-07-30 08:30 | NUR ---
PATIENT RESTING AWAITING SURGERY LATER TODAY. PATIENT REPORTS PAIN IS TOLERABLE, BUT DOES HAVE NAUSEA. IV RIGHT AC PATENT 20G, NS@100. SCD'S PLACED ON PATIENT. CONSENTS SIGNED AND ON CHART.
--- NOTE | 2018-07-30 10:20 | NUR ---
PATIENT PREPED FOR OR, TRANSPORTED BY OR STAFF VIA STRETCHER
--- NOTE | 2018-07-30 13:10 | NUR ---
PATIENT RECIEVED FROM OR, RESPIRATONS NON-LABORED, DRESSINGS C/D/I, BRITTNEY DRAIN IN PLACE. PATIENT AROUSES EASILY TO VOICE, DENIES NEED FOR PAIN AT THIS TIME.
--- NOTE | 2018-07-30 17:15 | NUR ---
TEMP OF 100.1, INSTRUCTED PATIENT TO BRACE ABDOMEN WITH PILLOW AND PERFORM COUGH AND DEEP BREATHING EXERCISES, ANDREW VOICED UNDERSTANDING AND RETURNED DEMONSTRATION
--- NOTE | 2018-07-30 17:33 | NUR ---
PATIENT SAT UP IN CHAIR PER HIS REQUEST FOR APPROX 20 MINUTES THEN WAS ASSISTED BACK TO BED, TOLERATING CLEAR LIQUIDS WELL, DENIES NAUSEA, PAIN TOLERABLE WITH SOLAR/RENEWABLE ENERGY SALES
[2018-07-31 04:37] VITALS: BP 141/86
[2018-07-31 06:42] LABS: BASOPHILS 0.3 % (0-2); EOSINOPHILS 0.1 % (0-7); HEMATOCRIT 41.9 % (42.0-54.0); IMMATURE GRANULOCYTES 0.3 % (0-5); LYMPHOCYTES 11.1 % (15-50); MCH 29.7 pg (26.0-34.0); MCHC 33.4 g/dL (31.0-37.0); MEAN PLATELET VOLUME 9.2 fL (7.4-10.4); MONOCYTES 7.9 % (2-11); NEUTROPHILS 80.3 % (40-80); PLATELET COUNT 237 10x3/uL (130-400); RBC 4.71 10x6/uL (4.20-6.10); RDW 13.2 % (11.5-14.5); WBC 11.4 10x3/uL (4.8-10.8)
[2018-07-31 06:49] LABS: INR 1.26 (0.85-1.17); PROTIME 15.2 SECONDS (11.6-15.0)
[2018-07-31 07:07] LABS: ANION GAP 12.6 mmol/L (8-16); CALCIUM 8.5 mg/dL (8.5-10.1); CARBON DIOXIDE 29.1 mmol/L (21.0-32.0); CREATININE - SERUM 1.2 mg/dL (0.6-1.3); POTASSIUM - SERUM 4.7 mmol/L (3.5-5.1)
--- NOTE | 2018-07-31 08:09 | NUR ---
PATIENT RESTING IN BED, INSTRUCTED ON IS AT LEAST EVERY HOUR. BRITTNEY DRAIN INTACT TO RIGHT LOWER ABDOMEN. DRESSINGS C/D/I TO RIGHT ABDOMEN AND NAVEL AREA. REPORTS PAIN TOLERABLE AT THIS TIME. WILL ADVANCE DIET TO FULL LIQUID FOR BREAKFAST. ENCOURAGED PATIENT TO AMBULATE IN HALLWAYS
--- NOTE | 2018-07-31 08:46 | NUR ---
PATIENT AMBULATED IN HALLWAYS WITHOUT DIFFICULTY
[2018-07-31 09:08] VITALS: BP 119/81
--- NOTE | 2018-07-31 14:44 | NUR ---
IV TO RIGHT AC LEAKING AT SITE. DC'D IV AND NOTIFIED DR Snow TO CHANGE PAIN MEDICATIONS AND ZOFRAN TO PO.
[2018-07-31 16:00] VITALS: BP 107/72
[2018-07-31] MEDS ORDERED: FLAGYL500 MG PO (20:27)
[2018-07-31] MEDS ORDERED: LEVAQUIN750 MG PO (20:27)
[2018-07-31] MEDS ORDERED: DILAUDID2 MG PO (20:29)
--- NOTE | 2018-07-31 21:30 | NUR ---
REMOVED BRITTNEY DRAIN. REVIEWED DISCHARGE PAPERWORK. PT LEFT FLOOR VIA WHEELCHAIR ACCOMPANIED BY ACADEMIC SUPPORT DIRECTOR.
--- NOTE | 2018-08-02 07:08 | MORECARE ---
CASE MANAGEMENT DISCHARGE SUMMARY PATIENT: MARCELLUS EDWARDS UNIT: [id number] ADM DATE: 07/30/18 AGE: 58 : 64 SEX: M ROOM/BED: D.2239 AUTHOR: YUDY PLUNKETT PHYSICIAN: REFERRING PHYSICIAN: JINA WESTFALL DO DATE OF SERVICE: 08/02/18 Discharge Plan Patient Name: MARCELLUS EDWARDS [facility] [facility] 1960 Planned Disposition: Anticipated Discharge Date: Discharge Date: 07/31/2018 Expected LOS: 0 Initial Reviewer: [email or web address] Initial Review Date: 08/02/2018 Generated: 08/02/18 8:08 am Patient Name: MARCELLUS EDWARDS Page [id number] at 0708 All edits/amendments must be made on the electronic document DICTATION DATE: 08/02/18707 RELATIONSHIP EXECUTIVE: GIOVANNA 08/02/18707 RPT#: [id number] DC DATE:07/31/18 STATUS: DIS IN [facility] [address] [place] [address] END OF REPORT
--- NOTE | 2018-08-02 16:44 | OP ---
PATIENT NAME: MARCELLUS EDWARDS MEDICAL RECORD: [id number] :64 LOCATION:D.MS [place]2239 ADMISSION DATE:07/30/18 SURGEON: ZACARIAS HAWKINS MD DATE OF OPERATION: 07/30/2018 PREOPERATIVE DIAGNOSIS: Acute appendicitis with localized peritonitis. POSTOPERATIVE DIAGNOSIS: Acute appendicitis with localized peritonitis. PROCEDURE: Laparoscopic appendectomy. SURGEON: Zacarias Hawkins MD COMPUTING SERVICES DIRECTOR: None. BLOOD LOSS: Minimal. ANESTHESIA: General. DRAINS: Times one 10-Serbian closed suction drainage tube. The risks, possible complications, and alternatives to the procedure were explained to the patient. He elects to proceed. OPERATIVE COURSE: The patient was conveyed to the operating room electively on 07/30/2018. General anesthesia was induced by the anesthesia staff. The abdomen was sterilely prepped and draped. A small skin sommer was accomplished in the left upper quadrant. A Veress needle was inserted through the skin sommer into the peritoneal cavity. CO2 insufflation was begun. Once a sufficient pneumoperitoneum had been achieved, a 5-mm trocar was inserted in the left lower quadrant. Under direct internal vision utilizing television camera, a 12-mm trocar was inserted through the incision at the umbilicus. Another 5-mm trocar was inserted through an incision in the right groin. During insertion of the Veress needle and all trocars, there appeared to have been no injury to the bowels, any intraperitoneal or retroperitoneal structures. An abdominal survey was undertaken. The appendix was identified. It was bluntly mobilized. A window was created in the mesoappendix. While grasping the appendix, it began to tear-away in pieces. It was removed in 3 pieces. Through the window in the mesoappendix, I stapled across the tip of the cecum with an Endo-NELA type of stapler utilizing a blue load. I then took down the mesoappendix with the laparoscopic EnSeal device. The appendix was placed within a bag retrieval device and was withdrawn through the 12-mm trocar site. The 12-mm trocar was replaced and the abdomen reinsufflated. I irrigated and aspirated the right side of the abdomen. There was no bleeding even at low pressure of 8. The 12-mm trocar was removed. The fascia at the umbilicus was closed with the Joseph-Michael suture closure device and 0 Vicryl sutures. A 10-Serbian fully fluted drain was then placed through the right groin trocar. All the trocars were removed and the abdomen desufflated. The drain was sutured to skin with a 2-0 nylon. The skin at the umbilicus was closed with interrupted 4-0 Vicryl Rapide sutures. The trocar sites were closed with interrupted intracuticular 3-0 Vicryls. Benzoin and Steri-Strips were applied. OPERATIVE REPORT [id number] MARCELLUS EDWARDS The patient was then extubated and conveyed to the post-anesthesia care unit, where he was in stable condition. TRANSINT:[id number] Voice Confirmation ID: [id number] DOCUMENT ID: [id number] ZACARIAS HAWKINS MD at 1644 CC: JINA WESTFALL DO and ZACARIAS DORMAN MD [id number] DICTATION DATE: 07/30/18 1224 FURNITURE FINISHER HELPER: 07/30/18 1302 [facility] 07/31/18 [address] [place] [address]
== END 2018-07-31 21:31 | disposition home or self-care (01) | DRG 343 ==
LOC: D.ER 22:28 → D.MS 07-30 02:48
PROVIDERS: Family Medicine; Surgery; ADMIT Family Medicine
PROC: 0DTJ0ZZ Resection of Appendix, Open Approach (ICD-10-PCS; principal; 2018-07-30 10:00)
DX: K35.30 Acute appendicitis with localized peritonitis, without perforation or gangrene (principal); G25.81 Restless legs syndrome; I10 Essential (primary) hypertension; J43.9 Emphysema, unspecified; F41.9 Anxiety disorder, unspecified; F32.9 Major depressive disorder, single episode, unspecified

== ENCOUNTER 2018-08-12 16:51 | Inpatient (IN) | payer OTHER ==
[~2018-08-12] VITALS: Ht 172.7 cm; Wt 101.2 kg
--- NOTE | ~2018-08-12 | HEMODYNAMI ---
PATIENT:MARCELLUS EDWARDS MEDICAL RECORD: [id number] : 64 LOCATION: D.2228 ADMISSION DATE: 08/12/18 Generatedon:08/17/20189:09 Patient name: MARCELLUS EDWARDS Patient #: [id number] SSN: : 1960 Date of study: 08/17/2018 Page: Of Hemodynamic Procedure Report Patient Data Patient Demographics Procedure consent was obtained First Name: MARCELLUS Gender: Male Last Name: GRACE : 1960 [facility] Initial: PAUL Age: 58 year(s) Patient #: [id number] Race: Additional ID: [id number] Contact details [address]: [address] [place] [address] [address]IVE State: [place] City: [place] Zip code: [address] Past Medical History History of disease Date Diagnosis Comments CAD COPD Valvular heart disease Allergies Allergen Reaction Date Comments Reported Other allergy 08/10/2014 hydrocodone Penicillins 08/10/2014 Other allergy 06/28/2017 PCN, HYDROCODONE, BIAXIN Admission Admission Data Admission Date: 08/12/2018 Admission Time: 16:51 Room #: D.2228 Procedure Procedure Types Cath Procedure Peripheral Cath Diagnostic Procedure Abscess Abscess Drain Injection Procedure Description Procedure Date Procedure Date: 08/17/2018 Procedure Start Time: 9:04 Procedure Staff Name Function Nilton Moreno MD Performing Physician Nury Wolfe RT Monitor Rony Jeong RT Scrub Holly Gutierrez RN Nurse Procedure Data Cath Procedure Fluoroscopy Diagnostic fluoroscopy Total fluoroscopy Time: 0.5 time: 0.5 min min Diagnostic fluoroscopy Total fluoroscopy dose: 45 dose: 45 mGy mGy Contrast Material Contrast Material Type Amount (ml) Isovue 300 8 Hemodynamics Rest Pre Cath Intra NCS Post Cath Procedure Log Time Note 8:33:00 Rony Jeong RT (R) (CV) sent for patient. Start room use. 8:33:07 Time tracking: Regular hours (M-F 7:00 - 5:00) 8:33:12 Plan of Care:Hemodynamics will remain stable., Cardiac rhythm will remain stable., Comfort level will be maintained., Respiratory function will remain adequate., Patient/ family verbilizes understanding of procedure., Procedure tolerated without complication., Recovers from procedure without complications.. 8:33:32 Patient received from Med/Surg to IR Alert and oriented. Tansferred to table in Supine position. 8:33:35 Use device set IR Diagnostic 8:33:44 Bag Decanter (2002S) opened to sterile field. 8:33:46 Sterile Angiographic Pack opened to sterile field. 8:33:46 Tegaderm 4 x 4 ([id number]) opened to sterile field. 8:34:40 Correct patient and procedure confirmed by team. 8:34:42 Signed procedure consent form obtained from patient. 8:34:44 8:34:45 Pre-procedure instructions explained to patient. 8:34:46 Pre-op teaching completed and patient verbalized understanding. 8:34:48 Family in patients room. 8:34:49 Patient NPO since Midnight. 8:40:28 Is patient on blood thinner?No 8:40:35 Right Abdomen was prepped with chlora-prep and draped in sterile fashion. 8:40:37 Alarms reviewed by R. N. 8:40:38 Sharps counted by scrub and verified by R.N. 9:03:23 Physician arrived 9:03:24 --------ALL STOP TIME OUT------ 9:03:26 Final Timeout: patient, procedure, and site verified with staff and physician. All members of the team are in agreement. 9:04:04 Procedure started. 9:04:04 Full Disclosure recording started 9:04:09 Local anesthetic to Abdominal area with Lidocaine 1% by Nilton Moreno MD.INITIAL ACCESS ONLY 9:06:06 GLIDE WIRE ANGLE 180cm ([id number]) opened to sterile field. 9:06:53 Procedure ended.(Physican Out) 9:07:26 Fluoroscopy time 00.50 minutes. 9:07:30 Fluoroscopy dose: 45 mGy 9:07:30 Flurop Dose total: 45 9:07:35 Contrast amount:Isovue 300 8ml. 9:07:52 Procedure and supply charges have been captured, reviewed, submitted and are correct. 9:08:54 Report given to Med/Surg. 9:09:01 Patient transfered to Med/Surg with Bed. Device Usage Item Name Manufacture Quantity Catalog Hospital Part Current Minimal Lot# / Number Charge Number Stock Stock Serial# Code Bag Decanter Microtek 1 [id number] () [employer] Sterile Cardinal 1 [id number] 5 Angiographic Health Pack Tegaderm 4 x 3M 1 [id number] 5 4 (1626W) GLIDE WIRE Terumo 1 [id number] 5 ANGLE 180cm ([id number]) Signature Audit [place] Stage Time Signature Unsigned Intra-Procedure 08/17/2018 Nury Wolfe 9:09:30 AM RT(R) Signatures Monitor : Nury Wolef RT Signature : Date : Time : [address] [address]
[~2018-08-12 16:51] MED LIST changes: +CRESTOR10 MG PO; +DILAUDID2 MG PO; +FLAGYL500 MG PO; +LEVAQUIN750 MG PO; +MAXITROL EYE DRO5 ML RIGHT EYE; +WELCHOL3.75 GM PO
[2018-08-12 18:27] LABS: ANION GAP 16.5 mmol/L (8-16); CALCIUM 9.1 mg/dL (8.5-10.1); CARBON DIOXIDE 23.5 mmol/L (21.0-32.0); CREATININE - SERUM 1.2 mg/dL (0.6-1.3); MAGNESIUM - SERUM 1.7 mg/dL (1.8-2.4); PHOSPHOROUS 2.8 mg/dL (2.5-4.9)
[2018-08-12 18:50] VITALS: BMI 33.9
--- NOTE | 2018-08-12 19:00 | NUR ---
PT ALERT AND ORIENTED. PT HAS LEFT AC IV. PT STATES PAIN IS TOLERABLE AT THIS TIME. RATES 08/04. PT STATES HE WOULD LIKE TO HAVE "ANXIETY MEDS LATER ON." LUNGS PRESENT WITH DIMINISHED BILATERAL LOWER LOBES. PT DENIES NEEDS FOR FURTHER CARE. DAUGHTER AND SON IN ROOM.
--- NOTE | 2018-08-12 19:36 | NUR ---
PT DIRECT ADMIT FROM DR. HOLDEN OFFICE. PT ARRIVED VIA WHEELCHAIR. GIRLFRIEND AT BEDSIDE. PT ALERT AND ORIENTED. PT HAD APPENDECTOMY 2 WEEKS AGO. PT C/O PAIN TO LOWER BACK, GAVE MORPHINE. PT C/O NAUSEA, GAVE ZOFRAN. IV TO LEFT AC, SITE PATENT WITHOUT REDNESS OR SWELLING. PT DENIES ANYTHING AT THIS TIME. CALL LIGHT IN REACH. WILL CONTINUE TO MONITOR.
[2018-08-12 20:00] VITALS: BP 130/51
--- NOTE | 2018-08-12 22:00 | NUR ---
ADMINISTERED ATIVAN PRN REQUESTED. PT STATED THAT HE SLEEPS WITH 2L OXYGEN AT HOME DUE TO PAST MEDICAL HISTORY.
[2018-08-13] VITALS: BP 135/56
[2018-08-13 03:00] VITALS: BP 140/53
--- NOTE | 2018-08-13 03:38 | NUR ---
PT LYING IN BED RESTING, NO SIGNS OF DISTRESS. DENIES NEEDS. CL IN REACH
--- NOTE | 2018-08-13 05:01 | NUR ---
ANSWERED PT CALL LIGHT. PT COMPLAINED THAT HE WAS COLD AND SHIVERING. PROVIDED PT WITH WARM BLANKETS X 2. PT STATED "FELT BETTER". PT STILL ACTING IF COLD. INSTRUCTED PT ON USE OF SLOW DEEP BREATHING. PT LISTENED WAS ABLE TO CALM DOWN AND RETURN BACK TO SLEEP.
[2018-08-13 05:14] LABS: BASOPHILS 0.2 % (0-2); EOSINOPHILS 0 % (0-7); HEMATOCRIT 39.7 % (42.0-54.0); HEMOGLOBIN 13.5 g/dL (13.5-17.5); IMMATURE GRANULOCYTES 0.7 % (0-5); LYMPHOCYTES 4.8 % (15-50); MCH 29.2 pg (26.0-34.0); MCV 85.7 fL (80.0-100.0); MEAN PLATELET VOLUME 8.6 fL (7.4-10.4); NEUTROPHILS 90.3 % (40-80); RBC 4.63 10x6/uL (4.20-6.10); WBC 14.1 10x3/uL (4.8-10.8)
[2018-08-13 05:29] LABS: PLATELET COUNT 342 10x3/uL (130-400)
[2018-08-13 05:35] LABS: ALBUMIN 2.6 g/dL (3.4-5.0); ANION GAP 11.9 mmol/L (8-16); BILIRUBIN - TOTAL 1.01 mg/dL (0.2-1.3); CALCIUM 8.4 mg/dL (8.5-10.1); CARBON DIOXIDE 27.5 mmol/L (21.0-32.0); CREATININE - SERUM 1.5 mg/dL (0.6-1.3); MAGNESIUM - SERUM 1.8 mg/dL (1.8-2.4); PHOSPHOROUS 2.6 mg/dL (2.5-4.9); POTASSIUM - SERUM 4.4 mmol/L (3.5-5.1); PROTEIN - SERUM 7.2 g/dL (6.4-8.2)
--- NOTE | 2018-08-13 05:40 | NUR ---
WALKED IN PT ROOM AND PT HAD SWEAT PANTS DOWN TO KNEE AREA AND UNDERWEAR HALF WAY OFF. PATIENT WAS ABLE TO ANSWER QUESTIONS BUT STATED HE WAS HAVING TROUBLE GETTING UNDERWEAR UP. REQUESTED A NEW SET OF VITAL SIGNS FOR PT HR HIT 150s. TEMP 99.9.
--- NOTE | 2018-08-13 05:43 | NUR ---
DR. ALBA PAGED AND RETURNED CALL. MADE DR AWARE OF PT AMS AND DIAPHORETIC. SAID TO MAKE SURGEON AWARE. NO ORDERS GIVEN AT THIS TIME.
--- NOTE | 2018-08-13 05:45 | NUR ---
PAGED DR CHARLES PER DR MEJIAS, DR CHARLES STATED TO GIVE 2L BOLUS NOW, EKG AND CARDIAC ENZYMES, LACTIC ACID, BOLUS STARTED NOW, AWAITING RESPIRATORY FOR EKG
--- NOTE | 2018-08-13 05:50 | NUR ---
BOLUS DOSED THE REST OF THE NS THAT PT CURRENTLY HAD RUNNING. WILL CONTINUE WITH 2 L AFTER PER ORDER.
--- NOTE | 2018-08-13 05:58 | NUR ---
CALLED REPIRATORY FOR STAT EKG, STATED SHE HAD TO GO TO ER FOR A BREATHING TREATMENT THEN WILL BE TO THE FLOOR FOR EKG
--- NOTE | 2018-08-13 06:25 | NUR ---
PT MORE ALERT. APOLOGIZED FOR URINATING IN FLOOR. PT STATED THAT HE WAS NOT FE
[2018-08-13 06:26] LABS: CREATINE KINASE 36 UL (21-232)
--- NOTE | 2018-08-13 06:31 | NUR ---
LAB CALLED AND STATED GRAM NEGATIVE RODS IN ALL BLOOD CULTURES. AWAITING LACTIC ACID TO CALL
[2018-08-13 06:39] LABS: TROPONIN-I < 0.017 ng/mL (0.000-0.060)
--- NOTE | 2018-08-13 07:16 | NUR ---
X RAY CALLED ABOUT CT SCAN. STATED THAT CREATININE WAS ELEVATED TOLD BERNY THAT WAS AWARE AND IN PROCESS OF BOLUSING PT PER DOCTORS ORDERS. BERNY STATED THAT SHE WOULD HAVE TO WAIT BEFORE PERFORMING CT AND GET "OKAY" FROM RADIOLOGIST TO PERFORM CT WITH ELEVATED CREATININE. BERNY STATED THAT IT WOULD BE 8 BEFORE RADIOLOGIST WAS HERE, REPLIED THAT THIS IS A STAT ORDER. TOLD BERNY THAT PER DOCTOR PT IS TO COME TO CT WITH THIRD BOLUS INFUSING. THIS MUST BE DONE. BERNY STATED UNDERSTANDING.
--- NOTE | 2018-08-13 07:59 | NUR ---
AWAKE AND ALERT, LAYING IN BED, DIAPHOREIC, TEMP ORAL OF 98.2, RESPIRATIONS OF 24, BOLUS NS INFUSING IN RIGHT AC, DENIES ANY OTHER NEEDS OR DISCOMFORTS, BED LOWERED AND LOCKED, CALL LIGHT WITHIN REACH. CPOC
[2018-08-13 08:57] VITALS: BP 109/53
--- NOTE | 2018-08-13 11:28 | NUR ---
SPOKE WITH DR. GENAO IN REGARDS TO ELEVATED TEMP OF 103 ORALLY. INSTRUCTED TO ADMINISTED TYLENOL SUPP NEEDED. CONTINUE IV FLUIDS. BED LOWERED AND LOCKED, CALL LIGHT WITHIN REACH. CPOC
[2018-08-13 11:33] VITALS: BMI 33.9
[2018-08-13 12:55] VITALS: BP 107/63; BP 111/66
[2018-08-13 14:26] VITALS: Ht 172.7 cm; Wt 101.2 kg
[2018-08-13 14:28] LABS: APTT 33.6 SECONDS (22.8-39.4); INR 1.3 (0.85-1.17); PROTIME 15.6 SECONDS (11.6-15.0)
--- NOTE | 2018-08-13 14:53 | NUR ---
RESTING QUIETLY IN BED. IV SITED TO RIGHT FOREARM AFTER ONE ATTEMP WITH 20G. DENIES NEEDS.
--- NOTE | 2018-08-13 18:21 | NUR ---
RAPID RESPONSE CALLED, D/T UNCONTROLLED SHIVERING, RESPIRATIONS OF 30, PALE COLORED HUE, DISCOLORED LIPS, VS OBTAINED, 02 RUNNING AROUND 85%-90%, APPLIED O2 AND STATS WENT TO 98% WITH 4LPM, HR OF 155, HAS BEGAN TO TREND DOWN, DENIES ANY OTHER NEEDS, BED LOWERED AND LOCKED, CALL LIGHT WITHIN REACH. CLOSELY MONITOR, CPOC
--- NOTE | 2018-08-13 19:15 | NUR ---
RECEIVED CARE FROM DAY NURSE. REPORTS NO NEEDS AT THIS TIME. CALL LIGHT AT SIDE. COMPANY AT SIDE. IV INFUSING TO RIGHT FA PER ORDER.
[2018-08-13 20:00] VITALS: BP 97/45
[2018-08-14] VITALS: BP 90/57
--- NOTE | 2018-08-14 00:15 | NUR ---
RN NOTE: PT HAS BEEN FEBRILE THIS SHIFT...PASTA PRESS OPERATOR TREATING WITH TYLENOL. AGREE WITH PASTA PRESS OPERATOR ASSESSMENT. CALL LIGHT WITHIN REACH.
[2018-08-14 03:00] VITALS: BP 89/59
[2018-08-14 06:41] VITALS: BP 100/62
[2018-08-14 06:59] LABS: BASOPHILS 0.2 % (0-2); EOSINOPHILS 0.1 % (0-7); IMMATURE GRANULOCYTES 0.3 % (0-5); LYMPHOCYTES 7.2 % (15-50); MCH 29.1 pg (26.0-34.0); MCHC 33.4 g/dL (31.0-37.0); MCV 87.1 fL (80.0-100.0); MEAN PLATELET VOLUME 8.7 fL (7.4-10.4); MONOCYTES 4.7 % (2-11); NEUTROPHILS 87.5 % (40-80)
[2018-08-14 07:01] LABS: HEMATOCRIT 31.7 % (42.0-54.0); HEMOGLOBIN 10.6 g/dL (13.5-17.5); PLATELET COUNT 211 10x3/uL (130-400); RBC 3.64 10x6/uL (4.20-6.10); WBC 9.6 10x3/uL (4.8-10.8)
[2018-08-14 07:04] LABS: ANION GAP 11.3 mmol/L (8-16); BILIRUBIN - TOTAL 0.4 mg/dL (0.2-1.3); CALCIUM 7.4 mg/dL (8.5-10.1); CARBON DIOXIDE 26.7 mmol/L (21.0-32.0); PROTEIN - SERUM 5.5 g/dL (6.4-8.2)
[2018-08-14 07:05] LABS: ALBUMIN 1.8 g/dL (3.4-5.0); CREATININE - SERUM 1.1 mg/dL (0.6-1.3)
[2018-08-14 09:21] VITALS: BP 97/62
--- NOTE | 2018-08-14 13:58 | NUR ---
SITTING UP IN BED. DENIES NEEDS. FAMILY AT BEDSIDE.
[2018-08-14 16:56] VITALS: BP 96/60
--- NOTE | 2018-08-14 19:15 | NUR ---
RECEIVED CARE FROM DAY NURSE. LYING IN BED WITH COMPANY AT SIDE. REPORTS NO NEEDS AT THIS TIME. CALL LIGHT AT SIDE. IV INFUSING D5NS TO RIGHT FA PER ORDER.
[2018-08-14 20:00] VITALS: BP 104/65
[2018-08-15 00:02] VITALS: BP 111/72
--- NOTE | 2018-08-15 02:26 | NUR ---
RESTING QUITLY. NO DISTRESS NOTED.
--- NOTE | 2018-08-15 02:43 | NUR ---
RESTING QUITELY IN BED RESP UNLABORED NO APPARENT DISTRESS
[2018-08-15 03:00] VITALS: BP 125/77
[2018-08-15 04:54] LABS: BASOPHILS 0.3 % (0-2); EOSINOPHILS 0.9 % (0-7); HEMATOCRIT 33.8 % (42.0-54.0); HEMOGLOBIN 11.5 g/dL (13.5-17.5); IMMATURE GRANULOCYTES 0.4 % (0-5); LYMPHOCYTES 14.3 % (15-50); MEAN PLATELET VOLUME 9.4 fL (7.4-10.4); MONOCYTES 6.1 % (2-11); RBC 3.97 10x6/uL (4.20-6.10); RDW 12.7 % (11.5-14.5); WBC 8.9 10x3/uL (4.8-10.8)
[2018-08-15 05:07] LABS: MCV 85.1 fL (80.0-100.0); PLATELET COUNT 256 10x3/uL (130-400)
[2018-08-15 05:12] LABS: CALCIUM 7.5 mg/dL (8.5-10.1); CARBON DIOXIDE 30.2 mmol/L (21.0-32.0); CHLORIDE - SERUM 98 mmol/L (98-107); CREATININE - SERUM 0.9 mg/dL (0.6-1.3); SODIUM 136 mmol/L (136-145); eGFR NON AFRICAN AMERICAN > 90 mL/min (90-120)
[2018-08-15 05:21] LABS: CALC OSMOLALITY 273 mosm/kg (275-300); GLUCOSE 148 mg/dL (74-106); POTASSIUM - SERUM 2.8 mmol/L (3.5-5.1); UREA NITROGEN 10 mg/dL (7-18)
[2018-08-15 08:25] VITALS: BP 118/77
[2018-08-15 12:26] VITALS: BP 115/75
--- NOTE | 2018-08-15 15:15 | NUR ---
ALERT AND ORIENTED WITH ADMITTED WITH SEPSIS. DRAIN NOTED TO RUQ AND INTACT. UP AD PINO AND ON ROOM AIR. ENCOURAGED TO USE CALL LIGHT FOR ASSIST. DENIES ANY PAIN OR DISCOMFORT AT THIS TIME.
--- NOTE | 2018-08-15 15:17 | NUR ---
NUTRITION F/U CHART REVIEWED. PT WITH FAMILY AT BEDSIDE. PT TOLERATING REG DIET WITH 75% INTAKE RECENT MEALS. WILL HONOR FOOD PREFERENCES, MONITOR PO INTAKE. RD FOLLOWING
[2018-08-15 17:23] VITALS: BP 119/75
[2018-08-15 20:31] VITALS: BP 115/75
--- NOTE | 2018-08-15 21:05 | NUR ---
AWAKE,ALERT.NO COMPLAINTS VOICED. WOOD DRILLING MACHINE OPERATOR SET UP FOR PAIN CONTROL PER ORDERS WITH INSTRUCTIONS GIVEN TO PATIENT FOR USE. VOICES UNDERSTANDING. IV INFUSING TO RFA WITHOUT REDNESS OR EDEMA NOTED. BILARY DRAIN TO RIGHT ABD INTACT AND DRAINING DARK GREEM DRAINAGE. FLUSHED PER ORDERS. TOLERATED WELL. CL IN REACH
--- NOTE | 2018-08-16 04:23 | NUR ---
PT SLEEPING. PREFERS DOOR OPEN. BREATHING EVEN AND UNLABORED. BED LOW AND CALL LIGHT IN REACH. WILL CONTINUE POC.
[2018-08-16 04:47] VITALS: BP 105/70
[2018-08-16 04:50] LABS: BASOPHILS 0.6 % (0-2); EOSINOPHILS 1.6 % (0-7); HEMATOCRIT 32.9 % (42.0-54.0); HEMOGLOBIN 11.2 g/dL (13.5-17.5); IMMATURE GRANULOCYTES 0.8 % (0-5); LYMPHOCYTES 26.2 % (15-50); MCH 28.6 pg (26.0-34.0); MCV 84.1 fL (80.0-100.0); MEAN PLATELET VOLUME 9.1 fL (7.4-10.4); MONOCYTES 11.1 % (2-11); NEUTROPHILS 59.7 % (40-80); PLATELET COUNT 276 10x3/uL (130-400); RBC 3.91 10x6/uL (4.20-6.10); RDW 12.7 % (11.5-14.5)
[2018-08-16 04:52] LABS: WBC 6.4 10x3/uL (4.8-10.8)
[2018-08-16 05:26] LABS: ALKALINE PHOSPHATASE 62 U/L (46-116); BILIRUBIN - TOTAL 0.22 mg/dL (0.2-1.3); CALC OSMOLALITY 279 mosm/kg (275-300); CALCIUM 7.9 mg/dL (8.5-10.1); CARBON DIOXIDE 28.8 mmol/L (21.0-32.0); CHLORIDE - SERUM 105 mmol/L (98-107); CREATININE - SERUM 0.9 mg/dL (0.6-1.3); GLUCOSE 104 mg/dL (74-106); MAGNESIUM - SERUM 1.7 mg/dL (1.8-2.4); PHOSPHOROUS 2.4 mg/dL (2.5-4.9); POTASSIUM - SERUM 3.5 mmol/L (3.5-5.1); PROTEIN - SERUM 5.5 g/dL (6.4-8.2); SODIUM 141 mmol/L (136-145); UREA NITROGEN 10 mg/dL (7-18); eGFR NON AFRICAN AMERICAN > 90 mL/min (90-120)
[2018-08-16 05:28] LABS: ALT (SGPT) 25 U/L (10-68)
--- NOTE | 2018-08-16 07:30 | NUR ---
PT RESTING IN BED EYES OPEN. NO C/O PAIN. NO S/S OF ACUTE DISTRESS NOTED. JAVASCRIPT SOFTWARE ENGINEER MORPHINE 1-10-10. IV TO RIGHT FOREARM, SITE PATENT WITHOUT REDNESS OR SWELLING. NS WITH K+ INFUSING @ 100ML/HR. BILIARY DRAIN TO RIGHT SIDE. PT ON ELECTROLYTE PROTOCOL. PT ALERT AND ORIENTED. UP AD PINO. PT DENIES ANYTHING FURTHER AT THIS TIME. CALL LIGHT IN REACH. WILL CONTINUE TO MONITOR.
--- NOTE | 2018-08-16 07:56 | HP ---
PATIENT: MARCELLUS EDWARDS MEDICAL RECORD: [id number] ACCOUNT: [id number] LOCATION:D.MS [id number] : 64 ADMISSION DATE: 08/12/18 PCP: ZACARIAS DAVIS DO HISTORY AND PHYSICAL EXAMINATION HISTORY OF PRESENT ILLNESS: A 58-year-old male presented to the clinic with abdominal pressure discomfort, nausea and vomiting, fever and chills, had an appendectomy 2 weeks prior, has not bounced back since his surgery, getting progressively worse with loss of appetite, malaise, and chills. PAST MEDICAL HISTORY: Significant for IBS, hypertension, COPD, insomnia, anxiety, and the acute symptoms as noted above. MEDICATIONS: Listed as: 1. Alprazolam 0.5 one p.o. q.12 hours p.r.n. 2. Aspirin 81 mg daily. 3. Cyclobenzaprine 10 mg tablet one half p.o. q.12 hours. 4. Duloxetine 30 mg 1 p.o. daily. 5. Hydrocodone-chlorpheniramine cough syrup p.r.n. 6. Hydromorphone 2 mg 1 p.o. q.3 hours p.r.n., this is a post-surgical medication. 7. Lisinopril 10 mg daily. 8. Magnesium supplements. 9. Meloxicam. 10. Methylprednisolone. 11. Singulair. 12. Ropinirole. 13. Pantoprazole. 14. Rosuvastatin. 15. Symbicort inhaler. REVIEW OF SYSTEMS: GENERAL: No known change in weight, 20-pound weight loss since surgery. HEENT: No cephalgia, visual changes, tinnitus, epistaxis, or dysphagia. CARDIOVASCULAR: Denies chest pain or palpitations. PULMONARY: Denies hemoptysis, denies night sweats. GASTROINTESTINAL: Denies hematemesis, hematochezia, or melena. Does admit nausea and vomiting, diffuse pressure tenderness radiating to the right flank. MUSCULOSKELETAL: No acute changes. ENDOCRINE: Denies polyuria, polydipsia, or polyphagia. PHYSICAL EXAMINATION: VITAL SIGNS: Weight 226 pounds, blood pressure 134/82, heart rate 122, O2 sat 91% on room air, respirations 18, temperature 99.7. GENERAL: Alert, oriented, moderate distress secondary to above. HEENT: Normocephalic, atraumatic. Eyes: Pupils are equally round and reactive. Ears: Canals patent, TMs are intact. Nose: Nares patent without drainage. Throat: No erythema, no exudates. NECK: Supple. No lymphadenopathy, no JVD. HEART: Regular, tachycardic. LUNGS: Clear to auscultation bilaterally, slightly diminished breath sounds at the bases. ABDOMEN: Soft, mild distention, mild tenderness on the right and right flank tenderness. No rebound, no guarding. EXTREMITIES: Present times 4. HISTORY AND PHYSICAL [id number] MARCELLUS EDWARDS NEUROLOGIC: Intact. SKIN: Warm and dry. No rash. LABORATORY DATA: CBC: White count 20,100, hemoglobin 14.9, hematocrit 45.1, platelets 552, neutrophils 85%. Urinalysis 2+ protein, 1+ bilirubin, nitrite negative, leukocytes negative. ASSESSMENT AND PLAN: Abdominal pain, pressure, status post appendectomy, leukocytosis, nausea and vomiting. The patient is admitted. Consult surgery. Blood cultures times 2, meropenem 1 gram IV q.8 hours, Zofran 4 mg IV q.4 hours p.r.n. nausea and vomiting, IV normal saline at [address] abdomen and pelvis with IV and oral contrast in the morning. The patient has had a meal in the last 2 hours. Labs on admission, CBC and CMP in the morning, magnesium, phosphorus in the morning. Electrolyte protocol, n.p.o. diet. Morphine 2 mg IV q.4 hours p.r.n. pain, Ativan p.r.n. anxiety. Chest x-ray and KUB on admission. TRANSINT:[id number] Voice Confirmation ID: [id number] DOCUMENT ID: [id number] ZACARIAS DAVIS DO at 0756 CC: [id number] DICTATION DATE: 08/12/181716 RESTAURANT AND BAR MANAGER: 08/12/182223 ADM IN [place] [id number] [place] [id number]
[2018-08-16 08:59] VITALS: BP 120/81
--- NOTE | 2018-08-16 10:06 | NUR ---
PT MAGNESIUM AND PHOSPHORUS LEVELS LOW THIS AM. GAVE 400MG PO OF MAGNESIUM, AND GAVE 1 PACKET OF PHOSPHORUS FOR COVERAGE PER PHYSICIANS ORDERS, PER ELECTROLYTE PROTOCOL. PT DENIES ANYTHING FURTHER AT THIS TIME. CALL LIGHT IN REACH. WILL CONTINUE TO MONITOR.
--- NOTE | 2018-08-16 10:09 | MORECARE ---
CASE MANAGEMENT DISCHARGE SUMMARY PATIENT: MARCELLUS EDWARDS UNIT: [id number] ADM DATE: 08/12/18 AGE: 58 : 64 SEX: M ROOM/BED: D.2228 AUTHOR: YUDY PLUNKETT PHYSICIAN: REFERRING PHYSICIAN: ZACARIAS DAVIS DO DATE OF SERVICE: 08/16/18 Discharge Plan Patient Name: MARCELLUS EDWARDS [facility] [facility] 1960 Planned Disposition: Home with Infusion Therapy Services Anticipated Discharge Date: 08/16/18 Discharge Date: Expected LOS: 4 Initial Reviewer: [email or web address] Initial Review Date: 08/12/2018 Generated: 08/16/18 11:09 am External Providers External Provider: [facility] Next Contact Date: Service Request Date: Service Type: Resolution: Reviewer: Comments: [facility] Next Contact Date: Service Request Date: Service Type: Resolution: Reviewer: Comments: External Provider: [facility] Next Contact Date: Service Request Date: Service Type: Resolution: Reviewer: Comments: Patient Name: MARCELLUS EDWARDS Page [phone] at 1009 All edits/amendments must be made on the electronic document DICTATION DATE: 08/16/18 1008 ASSISTANT FRONT END MANAGER: GIOVANNA 08/16/18 1008 RPT#: [id number] DC DATE: STATUS: ADM IN [facility] [address] [place] [address] END OF REPORT
--- NOTE | 2018-08-16 10:15 | MORECARE ---
CASE MANAGEMENT DISCHARGE SUMMARY PATIENT: MARCELLUS EDWARDS UNIT: [id number] ADM DATE: 08/12/18 AGE: 58 : 64 SEX: M ROOM/BED: D.2228 AUTHOR: YUDY PLUNKETT PHYSICIAN: REFERRING PHYSICIAN: ZACARIAS DAVIS DO DATE OF SERVICE: 08/16/18 Discharge Plan Patient Name: MARCELLUS EDWARDS [facility] [facility] 1960 Planned Disposition: Home with Infusion Therapy Services Anticipated Discharge Date: 08/16/18 Discharge Date: Expected LOS: 4 Initial Reviewer: [email or web address] Initial Review Date: 08/12/2018 Generated: 08/16/18 11:15 am DCPIA - Discharge Planning Initial Assessment Updated by [email or web address]: Almaz Moran on 08/16/18 10:11 am * Is the patient Alert and Oriented? Yes * How many steps to enter\exit or inside your home? 3/0 * PCP Dr. Haynes * Pharmacy [facility] on [facility] for mail order * Preadmission Environment Home Alone * ADLs Independent * Equipment Nebulizer Oxygen * List name and contact numbers for known caregivers / representatives who currently or will assist patient after discharge: Addis Cabral - girlfriend - [phone] * Verbal permission to speak to the caregivers and representatives has been obtained from the patient. Yes * Community resources currently utilized None * Please name any agencies selected above. DME for oxygen is [facility] * Additional services required to return to the preadmission environment? Yes * Can the patient safely return to the preadmission environment? Yes * Has this patient been hospitalized within the prior 30 days at any hospital? Yes Last DP export: 08/16/18 9:09 a Patient Name: MARCELLUS EDWARDS Page 63084 at 1015 All edits/amendments must be made on the electronic document DICTATION DATE: 08/16/18 1015 MEDICAL INSURANCE CLAIMS PROCESSOR: GIOVANNA 08/16/18 1015 RPT#: [id number] DC DATE: STATUS: ADM IN [facility] [address] [place] [address] END OF REPORT
--- NOTE | 2018-08-16 10:22 | MORECARE ---
CASE MANAGEMENT DISCHARGE SUMMARY PATIENT: MARCELLUS EDWARDS UNIT: [id number] ADM DATE: 08/12/18 AGE: 58 : 64 SEX: M ROOM/BED: D.2228 AUTHOR: DIMITRIOS,DOC PHYSICIAN: REFERRING PHYSICIAN: ZACARIAS DAVIS DO DATE OF SERVICE: 08/16/18 Discharge Plan Patient Name: MARCELLUS EDWARDS Facility: [facility]:[place] : 1960 Planned Disposition: Home with Infusion Therapy Services Anticipated Discharge Date: 08/16/18 Discharge Date: Expected LOS: 4 Initial Reviewer: [email or web address] Initial Review Date: 08/12/2018 Generated: 08/16/18 11:22 am Comments DCP- Discharge Planning Updated by [email or web address]: Almaz Moran on 08/16/18 9:[address] Patient Name: MARCELLUS EDWARDS Admission Status: Urgent Accout number: [id number] Admission Date: 08-12-2018 : 1960 Admission Diagnosis:SEPSIS, UNSPECIFIED ORGANISM Attending: ZACARIAS DAVIS Current LOS: 4 Anticipated DC Date: 08-16-2018 Planned Disposition: Home with Infusion Therapy Services Primary Insurance: [employer] Discharge Planning Comments: CM met with patient and his girlfriend to discuss discharge planning. He states he lives alone. He is independent with all ADL's and IADL's. States he wears oxygen at night at 2L [place]. States he gets his oxygen and nebulizer supplies from [facility]. He states he would like to go home with [facility], [facility] for [facility] signed. He does not have a preference of infusion companies. I sent [place] [facility] [place] a referral for macdonald check. I called Sandy with [facility] and clinical faxed. Dr. Zapata's office called for antibiotic order. CM will continue to follow and assist with discharge planning/needs. Steward Dishwasher: Almaz Moran DCPIA - Discharge Planning Initial Assessment Updated by [email or web address]: Almaz Moran on 08/16/18 10:11 am * Is the patient Alert and Oriented? Yes * How many steps to enter\exit or inside your home? 3/0 * PCP Dr. Haynes * Pharmacy [facility] on [facility] for mail order * Preadmission Environment Home Alone * ADLs Independent * Equipment Nebulizer Oxygen * List name and contact numbers for known caregivers / representatives who currently or will assist patient after discharge: Addis Cabral - girlfriend - [phone] * Verbal permission to speak to the caregivers and representatives has been obtained from the patient. Yes * Community resources currently utilized None * Please name any agencies selected above. DME for oxygen is [facility] * Additional services required to return to the preadmission environment? Yes * Can the patient safely return to the preadmission environment? Yes * Has this patient been hospitalized within the prior 30 days at any hospital? Yes Last DP export: 08/16/18 9:15 a Patient Name: MARCELLUS EDWARDS Page 12083 at 1022 All edits/amendments must be made on the electronic document DICTATION DATE: 08/16/18 1022 ENVIRONMENTAL JOURNALIST: GIOVANNA 08/16/18 1022 RPT#: [id number] DC DATE: STATUS: ADM IN [facility] [address] [place] [address] END OF REPORT
[2018-08-16 12:16] VITALS: BP 124/78
--- NOTE | 2018-08-16 12:24 | NUR ---
PATIENT RESTING IN BED WITH FAMILY AT SIDE. DENIES ANY NEEDS AT THIS TIME, NO PAIN REPORTED AND RESPIRATIONS NONLABORED. CL IN REACH
[2018-08-16 16:02] VITALS: BP 111/73
--- NOTE | 2018-08-16 19:34 | NUR ---
PT RESTING IN BED, EYES OPEN. NO C/O PAIN. NO S/S OF ACUTE DISTRESS NOTED. PT DENIES ANYTHING FURTHER AT THIS TIME. CALL LIGHT IN REACH. WILL CONTINUE TO MONITOR.
[2018-08-16 20:36] VITALS: BP 120/72
--- NOTE | 2018-08-16 21:00 | NUR ---
RESTING QUIELTY WITH NO COMPLAINTS VOICED. PAYROLL MACHINE OPERATOR MS IN USE FOR PAIN CONTROL. BILARY DRAIN TO RIGHT ABD INTACT WITH DRESSING DRY.FLUSHED PER ORDERS. RESP EVEN AND UNLABORED. O2 @ 2L PER NC ON.NO DISTRESS NOTED.
[2018-08-17] VITALS (12 sets, daily range): BP systolic 107–130; BP diastolic 63–82
[2018-08-17 04:55] LABS: INR 1.03 (0.85-1.17)
[2018-08-17 04:58] LABS: BASOPHILS 0.7 % (0-2); EOSINOPHILS 1.2 % (0-7); HEMATOCRIT 33.2 % (42.0-54.0); HEMOGLOBIN 11.2 g/dL (13.5-17.5); IMMATURE GRANULOCYTES 1.2 % (0-5); LYMPHOCYTES 21.6 % (15-50); MCH 28.7 pg (26.0-34.0); MCHC 33.7 g/dL (31.0-37.0); MCV 85.1 fL (80.0-100.0); MONOCYTES 9.6 % (2-11); NEUTROPHILS 65.7 % (40-80); PLATELET COUNT 282 10x3/uL (130-400); RDW 13.1 % (11.5-14.5); WBC 7.5 10x3/uL (4.8-10.8)
[2018-08-17 05:31] LABS: ALBUMIN 2.3 g/dL (3.4-5.0); ALKALINE PHOSPHATASE 75 U/L (46-116); ALT (SGPT) 30 U/L (10-68); BILIRUBIN - TOTAL 0.27 mg/dL (0.2-1.3); CALC OSMOLALITY 276 mosm/kg (275-300); CALCIUM 7.8 mg/dL (8.5-10.1); CARBON DIOXIDE 28.8 mmol/L (21.0-32.0); CHLORIDE - SERUM 102 mmol/L (98-107); CREATININE - SERUM 0.9 mg/dL (0.6-1.3); GLUCOSE 108 mg/dL (74-106); MAGNESIUM - SERUM 1.8 mg/dL (1.8-2.4); PROTEIN - SERUM 5.5 g/dL (6.4-8.2); SODIUM 138 mmol/L (136-145); UREA NITROGEN 12 mg/dL (7-18); eGFR NON AFRICAN AMERICAN > 90 mL/min (90-120)
[2018-08-17 05:45] LABS: PHOSPHOROUS 3.6 mg/dL (2.5-4.9); POTASSIUM - SERUM 4.5 mmol/L (3.5-5.1)
--- NOTE | 2018-08-17 07:15 | NUR ---
PT RESTING IN BED EYES OPEN. NO C/O PAIN. SOCIAL WELFARE CLERK MORPHINE COMPLETE, INSERTED ANOTHER MORPHINE SYRINGE. NO S/S OF ACUTE DISTRESS NOTED. PT NPO D/T POSSIBLE DRAIN REMOVAL TODAY. MIDLINE TO RIGHT UPPER ARM, SITE PATENT WITHOUT REDNESS OR SWELLING. NS WITH POTASSIUM INFUSING @ 20ML/HR. PT ON LOVENOX. GIRLFRIEND AT BEDSIDE. PT DENIES ANYTHING FURTHER AT THIS TIME. CALL LIGHT IN REACH. WILL CONTINUE TO MONITOR.
--- NOTE | 2018-08-17 08:45 | NUR ---
PT TAKEN FOR PROCEDURE. NO C/O PAIN. NO S/S OF ACUTE DISTRESS NOTED.
--- NOTE | 2018-08-17 09:15 | NUR ---
PT RECEIVED FROM PROCEDURE. DRAIN REMOVED. HOB 30 DEGREES OR ABOVE. FREQUENT VITALS. NO C/O PAIN. NO S/S OF ACUTE DISTRESS NOTED. CALL LIGHT IN REACH. GIRLFRIEND AT BEDSIDE. PT DENIES ANYTHING FURTHER AT THIS TIME. WILL CONTINUE TO MONITOR.
--- NOTE | 2018-08-17 09:28 | MORECARE ---
CASE MANAGEMENT DISCHARGE SUMMARY PATIENT: MARCELLUS EDWARDS UNIT: [id number] ADM DATE: 08/12/18 AGE: 58 : 64 SEX: M ROOM/BED: D.2228 AUTHOR: YUDY PLUNKETT PHYSICIAN: REFERRING PHYSICIAN: ZACARIAS DAVIS DO DATE OF SERVICE: 08/17/18 Discharge Plan Patient Name: MARCELLUS EDWARDS Facility: [facility]:[place] : 1960 Planned Disposition: Home with Infusion Therapy Services Anticipated Discharge Date: 08/16/18 Discharge Date: Expected LOS: 4 Initial Reviewer: [email or web address] Initial Review Date: 08/12/2018 Generated: 08/17/18 10:28 am Comments DCP- Discharge Planning Updated by [email or web address]: Almaz Moran on 08/17/18 8:[address] Spoke with patient about antibiotic quotes: [facility] is 187 for a med ball a week and [facility] is 126.99 a week for IVP, they both state it includes all supplies. Patient states he will go with [facility] if girlfriend agrees, he will talk to her. I notified Yovany with [facility] and Socorro with [facility]. I called Sandy. Antibiotic order and clinical faxed to [facility] and [facility]. CM will continue to follow and assist with discharge planning/needs. DCP- Discharge Planning Updated by [email or web address]: Almaz Moran on 08/16/18 9:[address] Patient Name: MARCELLUS EDWARDS Admission Status: Urgent Accout number: [id number] Admission Date: 08-12-2018 : 1960 Admission Diagnosis:SEPSIS, UNSPECIFIED ORGANISM Attending: ZACARIAS DAVIS Current LOS: 4 Anticipated DC Date: 08-16-2018 Planned Disposition: Home with Infusion Therapy Services Primary Insurance: [email or web address] Discharge Planning Comments: CM met with patient and his girlfriend to discuss discharge planning. He states he lives alone. He is independent with all ADL's and IADL's. States he wears oxygen at night at 2L NC. States he gets his oxygen and nebulizer supplies from [facility] Patient. He states he would like to go home with home health, [facility] for [facility] signed. He does not have a preference of infusion companies. I sent [facility] and [facility] a referral for macdonald check. I called Sandy with [facility] and clinical faxed. Dr. Zapata's office called for antibiotic order. CM will continue to follow and assist with discharge planning/needs. Capacity Manager: Almaz Dean DCPIA - Discharge Planning Initial Assessment Updated by [email or web address]: Almaz Moran on 08/16/18 10:11 am * Is the patient Alert and Oriented? Yes * How many steps to enter\exit or inside your home? 3/0 * PCP Dr. Haynes * Pharmacy [facility] on [facility] for mail order * Preadmission Environment Home Alone * ADLs Independent * Equipment Nebulizer Oxygen * List name and contact numbers for known caregivers / representatives who currently or will assist patient after discharge: Addis Cabral - girlfriend - [phone] * Verbal permission to speak to the caregivers and representatives has been obtained from the patient. Yes * Community resources currently utilized None * Please name any agencies selected above. DME for oxygen is [facility] * Additional services required to return to the preadmission environment? Yes * Can the patient safely return to the preadmission environment? Yes * Has this patient been hospitalized within the prior 30 days at any hospital? Yes Last DP export: 08/16/18 9:22 a Patient Name: MARCELLUS EDWARDS Page [phone] at 0928 All edits/amendments must be made on the electronic document DICTATION DATE: 08/17/18927 DAY GUARD: GIOVANNA 08/17/18927 RPT#: [id number] DC DATE: STATUS: ADM IN [facility] [address] [place] [address] END OF REPORT
--- NOTE | 2018-08-17 15:24 | NUR ---
HAND PACKAGER NOTES - DRAIN TO RIGHT FLANK REMOVED TODAY. MIDLINE TO RIGHT UPPER ARM, PATENT, DRESSING CLEAN DRY AND INTACT. MORPHINE NURSE COORDINATOR IN PLACE, PAIN UNDER CONTROL. NO N/V AT THIS TIME. NO OTHER NEEDS
--- NOTE | 2018-08-17 18:30 | NUR ---
PT RESTING IN BED, EYES OPEN. NO C/O PAIN. NO S/S OF ACUTE DISTRESS NOTED. GIRLFRIEND AT BEDSIDE. PT DENIES ANYTHING FURTHER AT THIS TIME. CALL LIGHT IN REACH. WILL CONTINUE TO MONITOR.
--- NOTE | 2018-08-17 20:30 | NUR ---
AWAKE,ALERT.NO COMPLAINTS VOICED.IV INFUSING TO RIGHT MIDLINE WITHOUT REDNESS OR EDEMA NOTED. DRESSING TO RIGHT ABD DRY/INTACT WITHOUT DRAINAGE NOTED. CREW CAR DRIVER MORPHINE IN USE FOR PAIN CONTROL CL IN REACH
[2018-08-18 00:46] VITALS: BP 124/80
[2018-08-18 04:57] VITALS: BP 105/66
--- NOTE | 2018-08-18 05:06 | NUR ---
EYES CLOSED RESPIRATIONS WITH EASE AND UNLABORED. SR UP X2 CALL LIGHT WITHIN REACH.
[2018-08-18 05:51] LABS: HEMATOCRIT 37.4 % (42.0-54.0); HEMOGLOBIN 12.5 g/dL (13.5-17.5); MCHC 33.4 g/dL (31.0-37.0); MCV 86.8 fL (80.0-100.0); MEAN PLATELET VOLUME 9.2 fL (7.4-10.4); PLATELET COUNT 313 10x3/uL (130-400); RBC 4.31 10x6/uL (4.20-6.10); RDW 13.2 % (11.5-14.5); WBC 8.8 10x3/uL (4.8-10.8)
[2018-08-18 05:53] LABS: ALBUMIN 2.5 g/dL (3.4-5.0); ALKALINE PHOSPHATASE 78 U/L (46-116); BILIRUBIN - TOTAL 0.53 mg/dL (0.2-1.3); CALC OSMOLALITY 265 mosm/kg (275-300); CALCIUM 8.8 mg/dL (8.5-10.1); CARBON DIOXIDE 25.7 mmol/L (21.0-32.0); CHLORIDE - SERUM 97 mmol/L (98-107); CREATININE - SERUM 0.9 mg/dL (0.6-1.3); GLUCOSE 109 mg/dL (74-106); MAGNESIUM - SERUM 1.8 mg/dL (1.8-2.4); PHOSPHOROUS 3.9 mg/dL (2.5-4.9); POTASSIUM - SERUM 4.5 mmol/L (3.5-5.1); SODIUM 132 mmol/L (136-145); UREA NITROGEN 13 mg/dL (7-18); eGFR NON AFRICAN AMERICAN > 90 mL/min (90-120)
[2018-08-18 05:58] LABS: ALT (SGPT) 40 U/L (10-68)
[2018-08-18] MEDS ORDERED: ROCEPHIN 2 GM/D52 G1 IV (06:49)
[2018-08-18] MEDS ORDERED: FLAGYL500 MG PO (06:50)
--- NOTE | 2018-08-18 07:25 | NUR ---
PT RESTING IN BED, EYES CLOSED. RESPIRATIONS EVEN AND UNLABORED. PT ALERT AND ORIENTED. PT HAS UPPER RIGHT ARM MIDLINE, SITE PATENT WITHOUT REDNESS OR SWELLING. NS WITH K+ INFUSING AT 10ML/HR. WARRANTY ADMINISTRATOR MORHINE 08-04-09. PAIN CONTROLLED BY WARRANTY ADMINISTRATOR. NO C/O PAIN. NO S/S OF ACUTE DISTRESS NOTED. GIRLFRIEND AT BEDSIDE. PT DENIES ANYTHING FURTHER AT THIS TIME. CALL LIGHT IN REACH. WILL CONTINUE TO MONITOR.
[2018-08-18 07:56] LABS: EOSINOPHILS 2 % (0-7); LYMPHOCYTES 22 % (15-50); MONOCYTES 3 % (2-11); NEUTROPHILS 69 % (40-80)
[2018-08-18 07:58] LABS: PLATELET ESTIMATE NORMAL; PLATELET MORPHOLOGY NORMAL PLT MORPH
--- NOTE | 2018-08-18 08:55 | MORECARE ---
CASE MANAGEMENT DISCHARGE SUMMARY PATIENT: MARCELLUS EDWARDS UNIT: [id number] ADM DATE: 08/12/18 AGE: 58 : 64 SEX: M ROOM/BED: D.2228 AUTHOR: YUDY PLUNKETT PHYSICIAN: REFERRING PHYSICIAN: ZACARIAS DAVIS DO DATE OF SERVICE: 08/18/18 Discharge Plan Patient Name: MARCELLUS EDWARDS [facility]:[employer] : 1960 Planned Disposition: Home with Infusion Therapy Services Anticipated Discharge Date: 08/16/18 Discharge Date: Expected LOS: 4 Initial Reviewer: [email or web address] Initial Review Date: 08/12/2018 Generated: 08/18/18 9:55 am Comments DCP- Discharge Planning Updated by [email or web address]: Almaz Moran on 08/18/18 7:[address] Discharge orders received. I called Sandy with [facility] and clinical faxed. [facility] will start care tomorrow for 1400 dose. I called Socorro with [facility] and informed her of discharge today. [facility] completed infusion instruction yesterday and will deliver his medication to his house after discharge. CM will continue to follow and assist with discharge planning/needs. DCP- Discharge Planning Updated by [email or web address]: Almaz Moran on 08/17/18 8:[address] Spoke with patient about antibiotic quotes: [facility] is 187 for a med ball a week and [facility] is 126.99 a week for IVP, they both state it includes all supplies. Patient states he will go with [facility] if girlfriend agrees, he will talk to her. I notified Yovany with [facility] and Socorro with [facility]. I called Sandy. Antibiotic order and clinical faxed to [facility] and [facility]. CM will continue to follow and assist with discharge planning/needs. DCP- Discharge Planning Updated by [email or web address]: Almaz Moran on 08/16/18 9:[address] Patient Name: MARCELLUS EDWARDS Admission Status: Urgent Accout number: [id number] Admission Date: 08-12-2018 : 1960 Admission Diagnosis:SEPSIS, UNSPECIFIED ORGANISM Attending: ZACARIAS DAVIS Current LOS: 4 Anticipated DC Date: 08-16-2018 Planned Disposition: Home with Infusion Therapy Services Primary Insurance: [employer] Discharge Planning Comments: CM met with patient and his girlfriend to discuss discharge planning. He states he lives alone. He is independent with all ADL's and IADL's. States he wears oxygen at night at 2L [place]. States he gets his oxygen and nebulizer supplies from [facility]. He states he would like to go home with home health, [place]NE[place] for [facility] signed. He does not have a preference of infusion companies. I sent [facility] and [facility] a referral for macdonald check. I called Sandy with [facility] and clinical faxed. Dr. Zapata's office called for antibiotic order. CM will continue to follow and assist with discharge planning/needs. Coating Machine Operator Helper: Almaz Moran DCPIA - Discharge Planning Initial Assessment Updated by [email or web address]: Almaz Moran on 08/16/18 10:11 am * Is the patient Alert and Oriented? Yes * How many steps to enter\exit or inside your home? 3/0 * PCP Dr. Haynes * Pharmacy [facility] on [facility] for mail order * Preadmission Environment Home Alone * ADLs Independent * Equipment Nebulizer Oxygen * List name and contact numbers for known caregivers / representatives who currently or will assist patient after discharge: Addis Cabral - girlfriend - [phone] * Verbal permission to speak to the caregivers and representatives has been obtained from the patient. Yes * Community resources currently utilized None * Please name any agencies selected above. DME for oxygen is [facility] * Additional services required to return to the preadmission environment? Yes * Can the patient safely return to the preadmission environment? Yes * Has this patient been hospitalized within the prior 30 days at any hospital? Yes Last DP export: 08/17/18 8:28 a Patient Name: MARCELLUS EDWARDS Page [phone] at 0855 All edits/amendments must be made on the electronic document DICTATION DATE: 08/18/18854 SIDEWALK REPAIRER: GIOVANNA 08/18/18 0855 RPT#: [id number] DC DATE: STATUS: ADM IN [facility] [address] [place] [address] END OF REPORT
[2018-08-18 08:57] VITALS: BP 117/80
--- NOTE | 2018-08-18 09:02 | MORECARE ---
CASE MANAGEMENT DISCHARGE SUMMARY PATIENT: MARCELLUS EDWARDS UNIT: [id number] ADM DATE: 08/12/18 AGE: 58 : 64 SEX: M ROOM/BED: D.2228 AUTHOR: YUDY PLUNKETT PHYSICIAN: REFERRING PHYSICIAN: ZACARIAS DAVIS DO DATE OF SERVICE: 08/18/18 Discharge Plan Patient Name: MARCELLUS EDWARDS Facility: [facility]:[place] : 1960 Planned Disposition: Home with Infusion Therapy Services Anticipated Discharge Date: 08/16/18 Discharge Date: Expected LOS: 4 Initial Reviewer: [email or web address] Initial Review Date: 08/12/2018 Generated: 08/18/18 10:02 am Comments DCP- Discharge Planning Updated by [email or web address]: Almaz Moran on 08/18/18 7:[address] Girlfriend at bedside. I informed that he could go home today after 2PM antibiotic. She should call Nanci when discharged to deliver antibiotic. Home today with [facility] and [facility] for IV infusions. DCP- Discharge Planning Updated by [email or web address]: Almaz Moran on 08/18/18 7:[address] Discharge orders received. I called Sandy with [employer] [facility] and clinical faxed. [facility] will start care tomorrow for 1400 dose. I called Socorro with [facility] and informed her of discharge today. Nanci completed infusion instruction yesterday and will deliver his medication to his house after discharge. CM will continue to follow and assist with discharge planning/needs. DCP- Discharge Planning Updated by [email or web address]: Almaz Moran on 08/17/18 8:[address] Spoke with patient about antibiotic quotes: [facility] is 187 for a med ball a week and [place] is 126.99 a week for IVP, they both state it includes all supplies. Patient states he will go with Nanci if girlfriend agrees, he will talk to her. I notified Yovany with [facility] and Socorro with [facility]. I called Sandy. Antibiotic order and clinical faxed to [facility] and [place]. CM will continue to follow and assist with discharge planning/needs. DCP- Discharge Planning Updated by [email or web address]: Almaz Moran on 08/16/18 9:[address] Patient Name: MARCELLUS EDAWRDS Admission Status: Urgent Accout number: [id number] Admission Date: 08-12-2018 : 1960 Admission Diagnosis:SEPSIS, UNSPECIFIED ORGANISM Attending: ZACARIAS DAIVS Current LOS: 4 Anticipated DC Date: 08-16-2018 Planned Disposition: Home with Infusion Therapy Services Primary Insurance: [email or web address] Discharge Planning Comments: CM met with patient and his girlfriend to discuss discharge planning. He states he lives alone. He is independent with all ADL's and IADL's. States he wears oxygen at night at 2L NC. States he gets his oxygen and nebulizer supplies from [facility]. He states he would like to go home with home health, SNEHA for [facility] signed. He does not have a preference of infusion companies. I sent [facility] and [facility] a referral for macdonald check. I called Sandy with [facility] and clinical faxed. Dr. Zapata's office called for antibiotic order. CM will continue to follow and assist with discharge planning/needs. Technology Strategist: Almaz Moran DCPIA - Discharge Planning Initial Assessment Updated by [email or web address]: Almaz Moran on 08/16/18 10:11 am * Is the patient Alert and Oriented? Yes * How many steps to enter\exit or inside your home? 3/0 * PCP Dr. Haynes * Pharmacy [facility] on [facility] for mail order * Preadmission Environment Home Alone * ADLs Independent * Equipment Nebulizer Oxygen * List name and contact numbers for known caregivers / representatives who currently or will assist patient after discharge: Addis Cabral - girlfriend - [phone] * Verbal permission to speak to the caregivers and representatives has been obtained from the patient. Yes * Community resources currently utilized None * Please name any agencies selected above. DME for oxygen is [facility] * Additional services required to return to the preadmission environment? Yes * Can the patient safely return to the preadmission environment? Yes * Has this patient been hospitalized within the prior 30 days at any hospital? Yes Coverage Notice Reviewer: [id number] - Almaz Moran Notice Issued Date-Time: 08/18/2018 8:56 Notice Type: IM Discharge Notice Notice Delivered To: Family Member Relationship to Patient: Friend Light Rail Operator Name: Addis Cabral Delivery Method: HAND - Hand Delivered Elvira Days: Prior Verbal Notification: Recipient Understood Notice: Yes Recipient Signature: Yes Med Rec Note Co-signed by Attending: Coverage Notice Comment: IMM explained, signed by his girlfriend per his request, copy given, original placed in MR Last DP export: 08/18/18 7:55 a Patient Name: MARCELLUS EDWARDS Page [phone] at 0902 All edits/amendments must be made on the electronic document DICTATION DATE: 08/18/18900 VELVET CUTTER: GIOVANNA 08/18/18900 RPT#: [id number] DC DATE: STATUS: ADM IN [facility] [address] [place] [address] END OF REPORT
[2018-08-18 13:03] VITALS: BP 115/79
--- NOTE | 2018-08-18 15:45 | NUR ---
PT DISCHARGED HOME WITH GIRLFRIEND VIA WHEELCHAIR. NO C/O PAIN. NO S/S OF ACUTE DISTRESS NOTED. WENT OVER DISCHARGE INSTRUCTIONS WITH PT, PT ACKNOWLEDGED. DISCHARGED WITH [facility]LINE IV CATHETER FOR IV ANTIBIOTICS AT HOME. HOME HEALTH WITH [facility]. PT DENIES ANYTHING FURTHER.
--- NOTE | 2018-08-19 10:25 | MORECARE ---
CASE MANAGEMENT DISCHARGE SUMMARY PATIENT: MARCELLUS EDWARDS UNIT: [id number] ADM DATE: 08/12/18 AGE: 58 : 64 SEX: M ROOM/BED: D.2228 AUTHOR: YUDY PLUNKETT PHYSICIAN: REFERRING PHYSICIAN: ZACARIAS DAVIS DO DATE OF SERVICE: 08/19/18 Discharge Plan Patient Name: MARCELLUS EDWARDS Facility: [facility]:[place] : 1960 Planned Disposition: Home with Infusion Therapy Services Anticipated Discharge Date: 08/16/18 Discharge Date: 08/18/2018 Expected LOS: 4 Initial Reviewer: [email or web address] Initial Review Date: 08/12/2018 Generated: 08/19/18 11:24 am Comments DCP- Discharge Planning Updated by [email or web address]: Almaz Moran on 08/18/18 7:[address] Girlfriend at bedside. I informed that he could go home today after 2PM antibiotic. She should call Nanci when discharged to deliver antibiotic. Home today with [facility] and [facility] for IV infusions. DCP- Discharge Planning Updated by [id number]: Almaz Moran on 08/18/18 7:[address] Discharge orders received. I called Sandy with [facility] and clinical faxed. [facility] will start care tomorrow for 1400 dose. I called Socorro with [facility] and informed her of discharge today. Nanci completed infusion instruction yesterday and will deliver his medication to his house after discharge. CM will continue to follow and assist with discharge planning/needs. DCP- Discharge Planning Updated by [email or web address]: Almaz Moran on 08/17/18 8:[address] Spoke with patient about antibiotic quotes: [place] is 187 for a med ball a week and [place] is 126.99 a week for IVP, they both state it includes all supplies. Patient states he will go with Nanci if girlfriend agrees, he will talk to her. I notified Yovany with [facility] and Socorro with [facility]. I called Sandy. Antibiotic order and clinical faxed to [facility] and [place]. CM will continue to follow and assist with discharge planning/needs. DCP- Discharge Planning Updated by [email or web address]: Almaz Moran on 08/16/18 9:[address] Patient Name: MARCELLUS EDWARDS Admission Status: Urgent Accout number: [id number] Admission Date: 08-12-2018 : 1960 Admission Diagnosis:SEPSIS, UNSPECIFIED ORGANISM Attending: ZACARIAS DAVIS Current LOS: 4 Anticipated DC Date: 08-16-2018 Planned Disposition: Home with Infusion Therapy Services Primary Insurance: [employer] Discharge Planning Comments: CM met with patient and his girlfriend to discuss discharge planning. He states he lives alone. He is independent with all ADL's and IADL's. States he wears oxygen at night at 2L NC. States he gets his oxygen and nebulizer supplies from [facility]. He states he would like to go home with home health, SNEHA for [facility] signed. He does not have a preference of infusion companies. I sent [place] and [place] a referral for macdonald check. I called Sandy with [employer] and clinical faxed. Dr. Zapata's office called for antibiotic order. CM will continue to follow and assist with discharge planning/needs. Sign Out Clerk: Almaz Moran DCPIA - Discharge Planning Initial Assessment Updated by [email or web address]: Almaz Moran on 08/16/18 10:11 am * Is the patient Alert and Oriented? Yes * How many steps to enter\exit or inside your home? 3/0 * PCP Dr. Haynes * Pharmacy [facility] on [facility] for mail order * Preadmission Environment Home Alone * ADLs Independent * Equipment Nebulizer Oxygen * List name and contact numbers for known caregivers / representatives who currently or will assist patient after discharge: Addis Cabral - girlfriend - [phone] * Verbal permission to speak to the caregivers and representatives has been obtained from the patient. Yes * Community resources currently utilized None * Please name any agencies selected above. DME for oxygen is [facility] * Additional services required to return to the preadmission environment? Yes * Can the patient safely return to the preadmission environment? Yes * Has this patient been hospitalized within the prior 30 days at any hospital? Yes Coverage Notice Reviewer: [email or web address] - Almaz Moran Notice Issued Date-Time: 08/18/2018 8:56 Notice Type: IM Discharge Notice Notice Delivered To: Family Member Relationship to Patient: Friend Electronic Device Monitor Name: Addis Cabral Delivery Method: HAND - Hand Delivered Elvira Days: Prior Verbal Notification: Recipient Understood Notice: Yes Recipient Signature: Yes Med Rec Note Co-signed by Attending: Coverage Notice Comment: IMM explained, signed by his girlfriend per his request, copy given, original placed in MR Last DP export: 08/18/18 8:02 a Patient Name: MARCELLUS EDWARDS Page [phone] at 1025 All edits/amendments must be made on the electronic document DICTATION DATE: 08/19/18 1024 CASE SEALER: DM 08/19/18 1024 RPT#: [id number] DC DATE:08/18/18 STATUS: DIS IN [facility] [address] [place] [address] END OF REPORT
== END 2018-08-18 17:06 | disposition home health service (06) | DRG 871 ==
LOC: D.MS 16:51
PROVIDERS: Family Medicine; Radiology Diagnostic Radiology; Surgery; ADMIT Family Medicine
PROC: 0F9230Z Drainage of Left Lobe Liver with Drainage Device, Percutaneous Approach (ICD-10-PCS; principal; 2018-08-13 16:00)
PROC: 05HY33Z Insertion of Infusion Device into Upper Vein, Percutaneous Approach (ICD-10-PCS; 2018-08-16)
DX: A41.9 Sepsis, unspecified organism (principal); K75.0 Abscess of liver; I10 Essential (primary) hypertension; J44.9 Chronic obstructive pulmonary disease, unspecified

== ENCOUNTER → 2018-08-22 16:38 | Outpatient (CLI) | payer OTHER ==
[2018-08-13 14:26] VITALS: BMI 33.9
[~2018-08-22 16:38] MED LIST changes: +ROCEPHIN 2 GM/D52 G1 IV
[2018-08-22 16:59] LABS: BASOPHILS 0.6 % (0-2); EOSINOPHILS 2.5 % (0-7); HEMATOCRIT 39.1 % (42.0-54.0); HEMOGLOBIN 13.6 g/dL (13.5-17.5); IMMATURE GRANULOCYTES 1.4 % (0-5); LYMPHOCYTES 23.1 % (15-50); MCH 29.2 pg (26.0-34.0); MCHC 34.8 g/dL (31.0-37.0); MCV 84.1 fL (80.0-100.0); MEAN PLATELET VOLUME 8.9 fL (7.4-10.4); MONOCYTES 7.6 % (2-11); NEUTROPHILS 64.8 % (40-80); RBC 4.65 10x6/uL (4.20-6.10); RDW 13.2 % (11.5-14.5); WBC 8.8 10x3/uL (4.8-10.8)
[2018-08-22 17:01] LABS: PLATELET COUNT 536 10x3/uL (130-400)
[2018-08-22 17:08] LABS: CREATININE - SERUM 0.9 mg/dL (0.6-1.3)
== END | disposition home or self-care (01) ==
LOC: D.LABREF 16:38
PROVIDERS: Family Medicine
DX: A41.51 Sepsis due to Escherichia coli [E. coli] (principal); K75.0 Abscess of liver

== ENCOUNTER → 2018-08-29 18:22 | Outpatient (CLI) | payer OTHER ==
[2018-08-13 14:26] VITALS: BMI 33.9
[~2018-08-29 18:22] MED LIST changes: +CIPRO500 MG PO; +FLORAJEN3 CAPS460 MG PO; +MORPHINE IMMEDI15 MG PO
[2018-08-29 19:49] LABS: BASOPHILS 1.3 % (0-2); EOSINOPHILS 2.6 % (0-7); HEMATOCRIT 37.4 % (42.0-54.0); HEMOGLOBIN 12.6 g/dL (13.5-17.5); IMMATURE GRANULOCYTES 0.5 % (0-5); LYMPHOCYTES 24.3 % (15-50); MCH 28.8 pg (26.0-34.0); MCHC 33.7 g/dL (31.0-37.0); MCV 85.4 fL (80.0-100.0); MEAN PLATELET VOLUME 8.6 fL (7.4-10.4); MONOCYTES 10.1 % (2-11); NEUTROPHILS 61.2 % (40-80); PLATELET COUNT 482 10x3/uL (130-400); RBC 4.38 10x6/uL (4.20-6.10); RDW 13.5 % (11.5-14.5); WBC 7.7 10x3/uL (4.8-10.8)
[2018-08-29 20:40] LABS: CREATININE - SERUM 0.9 mg/dL (0.6-1.3)
== END | disposition home or self-care (01) ==
LOC: D.LABREF 18:22
PROVIDERS: Student in an Organized Health Care Education/Training Program
DX: K75.0 Abscess of liver (principal); Z51.81 Encounter for therapeutic drug level monitoring; Z79.2 Long term (current) use of antibiotics

== ENCOUNTER → 2018-09-02 13:17 | Outpatient (CLI) | payer OTHER ==
[2018-08-13 14:26] VITALS: BMI 33.9
== END | disposition home or self-care (01) ==
LOC: D.CT 13:17
DX: K75.0 Abscess of liver (principal)

== ENCOUNTER 2018-09-05 10:19 | Inpatient (IN) | payer OTHER ==
[~2018-09-05] VITALS: Ht 172.7 cm; Wt 96.6 kg
--- NOTE | ~2018-09-05 | HEMODYNAMI ---
PATIENT:MARCELLUS EDWARDS MEDICAL RECORD: [id number] : [birth year] LOCATION:D.MS [id number] ADMISSION DATE: 09/05/18 Generatedon:09/12/201813:43 Patient name: MARCELLUS EDWARDS Patient #: [id number] SSN: : 1960 Date of study: 09/12/2018 Page: Of Hemodynamic Procedure Report Patient Data Patient Demographics Procedure consent was obtained First Name: MARCELLUS Gender: Male Last Name: GRACE : 1960 [facility] Initial: PAUL Age: 58 year(s) Patient #: [id number] Race: Additional ID: [id number] Contact details Address: [address] [place] [address] [address]IVE State: [place] City: [place] Zip code: [address] Past Medical History History of disease Date Diagnosis Comments CAD COPD Valvular heart disease Allergies Allergen Reaction Date Comments Reported Other allergy 08/10/2014 hydrocodone Penicillins 08/10/2014 Other allergy 06/28/2017 PCN, HYDROCODONE, BIAXIN Admission Admission Data Admission Date: 09/05/2018 Admission Time: 12:30 Room #: D.2233 Procedure Procedure Types Cath Procedure Peripheral Cath Diagnostic Procedure Abscess Abscess Drain Injection Procedure Description Procedure Date Procedure Date: 09/12/2018 Procedure Start Time: 13:34 Procedure Staff Name Function Nilton Moreno MD Performing Physician Rony Jeong RT Monitor Rony Jeong RT Scrub Holly Gutierrez RN Nurse Hemodynamics Rest Pre Cath Intra NCS Post Cath Procedure Log Time Note 13:20:46 Rony Jeong RT (R) (CV) sent for patient. Start room use. 13:20:48 Time tracking: Regular hours (M-F 7:00 - 5:00) 13:21:00 Patient received from Med/Surg to IR Alert and oriented. Tansferred to table in Supine position. 13:21:13 Use device set IR Diagnostic 13:21:14 Bag Decanter (2002S) opened to sterile field. 13:21:15 Sterile Angiographic Pack opened to sterile field. 13:21:16 Tegaderm 4 x 4 (1626W) opened to sterile field. 13::23 Correct patient and procedure confirmed by team. 13:: Signed procedure consent form obtained from patient. 13:: Full Disclosure recording started :: - 13:21:28 Pre-procedure instructions explained to patient. 13::28 Pre-op teaching completed and patient verbalized understanding. 13:21:30 Family in waiting room. 13:21:34 Patient NPO since Midnight. 13:21:39 Is the patient allergic to Iodine/contrast media? No. 13:21:44 Is patient on blood thinner?No 13::46 - 13:26:01 Alarms reviewed by R. N. 13:26:02 Sharps counted by scrub and verified by R.N. 13:26:14 Right Abdomen was prepped with chlora-prep and draped in sterile fashion. 13:31:22 Physician arrived 13:31:24 --------ALL STOP TIME OUT------ 13:33:09 Right abdomen site verified by team. 13:34:07 Procedure started. 13:37:30 GLIDE WIRE ANGLE 180cm ([id number]) opened to sterile field. 13:39:47 Procedure ended.(Physican Out) 13:40:32 Sharps counted by scrub and verified by R.N. 13:41:56 Insertion/operative site no bleeding no hematoma. 13:42:24 Post procedure instruction explained to patient.Patient verbalizes understanding. 13:42:41 Procedure and supply charges have been captured, reviewed, submitted an d are correct. 13:43:11 Report given to Med/Surg. 13:43:15 Patient transfered to Med/Surg with Bed. Device Usage Item Name Manufacture Quantity Catalog Hospital Part Current Minimal Lot# / Number Charge Number Stock Stock Serial# Code Bag Decanter Microtek 1 [id number] () Medical Inc. Sterile Cardinal 1 [id number] 5 Angiographic Health Pack Tegaderm 4 x 3M 1 [id number] [id number] 5 4 (1626W) GLIDE WIRE Terumo 1 [id number] 5 ANGLE 180cm ([id number]) Signature Audit [place] Stage Time Signature Unsigned Intra-Procedure 09/12/2018 Rony 1:43:32 PM Adenike RT (R) (CV) Signatures Monitor : Rony Signature : Adenike RT Date : Time : [address] [address]
[~2018-09-05 10:19] MED LIST changes: -CIPRO500 MG PO; -FLORAJEN3 CAPS460 MG PO; -MORPHINE IMMEDI15 MG PO
[2018-09-05 11:07] LABS: BASOPHILS 0.6 % (0-2); EOSINOPHILS 0.6 % (0-7); HEMATOCRIT 37.6 % (42.0-54.0); HEMOGLOBIN 12.9 g/dL (13.5-17.5); IMMATURE GRANULOCYTES 0.5 % (0-5); LYMPHOCYTES 13.9 % (15-50); MCH 28.9 pg (26.0-34.0); MCHC 34.3 g/dL (31.0-37.0); MCV 84.3 fL (80.0-100.0); MEAN PLATELET VOLUME 8.4 fL (7.4-10.4); MONOCYTES 11.2 % (2-11); NEUTROPHILS 73.2 % (40-80); RBC 4.46 10x6/uL (4.20-6.10); RDW 13.6 % (11.5-14.5); WBC 9.9 10x3/uL (4.8-10.8)
[2018-09-05 11:11] LABS: PLATELET COUNT 324 10x3/uL (130-400)
[2018-09-05 11:21] LABS: ALBUMIN 2.7 g/dL (3.4-5.0); ANION GAP 15.4 mmol/L (8-16); BILIRUBIN - TOTAL 0.45 mg/dL (0.2-1.3); CALCIUM 8.9 mg/dL (8.5-10.1); CARBON DIOXIDE 25.6 mmol/L (21.0-32.0); CREATININE - SERUM 1.1 mg/dL (0.6-1.3); PROTEIN - SERUM 7.6 g/dL (6.4-8.2)
[2018-09-05 11:31] VITALS: BP 114/80
[2018-09-05 12:00] VITALS: BP 120/70
[2018-09-05 13:20] VITALS: BP 120/74; BMI 32.4
--- NOTE | 2018-09-05 13:20 | NUR ---
PT ADMITTED FROM ER VIA STRETCHER TO ROOM 2233. ALERT AND ORIENTED. C/O RIGHT LOWER BACK PAIN, 9/10 AT THIS TIME. PRE EXISTING PICC LINE NOTED TO RIGHT UPPER ARM. SITE WITHOUT REDNESS OR EDEMA. ORIENTED TO CL AND BED CONTROLS. DENIES FURTHER NEEDS AT THIS TIME. CL WITHIN REACH. ENCOURAGED TO CALL WITH NEEDS. WILL CONTINUE TO MONITOR.
[2018-09-05 15:05] LABS: APPEARANCE HAZY (CLEAR); COLOR YELLOW (YELLOW)
[2018-09-05 15:06] LABS: BILIRUBIN NEGATIVE (NEGATIVE); GLUCOSE NEGATIVE (NEGATIVE); KETONE NEGATIVE (NEGATIVE); NITRITE NEGATIVE (NEGATIVE); PROTEIN NEGATIVE (NEGATIVE); UROBILINOGEN NORMAL (NORMAL)
[2018-09-05 16:02] VITALS: BP 103/60
--- NOTE | 2018-09-05 18:58 | NUR ---
PT LYING IN BED. DENIES NEEDS AT THIS TIME. CL IN REACH
--- NOTE | 2018-09-05 20:20 | NUR ---
PT RESTING IN BED. ALERT AND ORIENTED. NO SIGNS OF DISTRESS. BREATHING EVEN AND UNLABORED. PT STATES BACK PAIN 6 OUT OF 10 WILL GIVE PAIN MEDICATION PER MAR. IV SITE RT UPPER ARM MIDLINE. DRESSING CLEAN DRY AND INTACT. NO SIGNS OF INFECTION. SKIN CLEAN DRY AND INTACT. BOWEL SOUNDS ACTIVE. NO LOWER LEG SWELLING PRESENT. WILL CONTINUE PLAN OF CARE. CALL LIGHT IN REACH. BED LOWERED AND LOCKED. BED RAILS UPX2. FAMILY AT BEDSIDE.
[2018-09-05 20:55] VITALS: BP 110/59
[2018-09-06] VITALS (12 sets, daily range): BP systolic 101–153; BP diastolic 54–87; Ht 172.7 cm; Wt 96.6 kg
--- NOTE | 2018-09-06 05:00 | NUR ---
EYES CLOSED RESPIRATIONS WITH EASE AND UNLABORED. SR UP X2 CALL LIGHT WITHIN REACH.
[2018-09-06 05:57] LABS: BASOPHILS 0.4 % (0-2); EOSINOPHILS 2.4 % (0-7); HEMATOCRIT 32.2 % (42.0-54.0); HEMOGLOBIN 10.8 g/dL (13.5-17.5); IMMATURE GRANULOCYTES 0.6 % (0-5); LYMPHOCYTES 23.3 % (15-50); MCH 28.6 pg (26.0-34.0); MCHC 33.5 g/dL (31.0-37.0); MCV 85.4 fL (80.0-100.0); MEAN PLATELET VOLUME 8.4 fL (7.4-10.4); MONOCYTES 11.3 % (2-11); PLATELET COUNT 291 10x3/uL (130-400); RBC 3.77 10x6/uL (4.20-6.10); RDW 13.9 % (11.5-14.5); WBC 7.8 10x3/uL (4.8-10.8)
[2018-09-06 06:13] LABS: CALC OSMOLALITY 271 mosm/kg (275-300); CALCIUM 8.2 mg/dL (8.5-10.1); CARBON DIOXIDE 27.9 mmol/L (21.0-32.0); CHLORIDE - SERUM 100 mmol/L (98-107); CREATININE - SERUM 0.9 mg/dL (0.6-1.3); GLUCOSE 96 mg/dL (74-106); INR 1.27 (0.85-1.17); POTASSIUM - SERUM 4.1 mmol/L (3.5-5.1); PROTIME 15.4 SECONDS (11.6-15.0); SODIUM 136 mmol/L (136-145); UREA NITROGEN 12 mg/dL (7-18); eGFR NON AFRICAN AMERICAN > 90 mL/min (90-120)
[2018-09-06 06:14] LABS: APTT 37.8 SECONDS (22.8-39.4)
--- NOTE | 2018-09-06 20:10 | NUR ---
PT RESTING IN BED. ALERT AND ORIENTED. PT STATES NO PROBLEMS AT THIS TIME. NO SIGNS OF DISTRESS. BREATHING EVEN AND UNLABORED. IV SITE LT UPPER ARM MIDLINE. DRESSING CLEAN DRY AND ITNACT. NO SIGNS OF INFECTIN. BOWEL SOUNDS ACTIVE. NO LOWER LEG SWELLING PRESENT. DRESSING RT LOWER BACK CLEAN DRY AND ITNACT. DRAIN TO RT LOWER BACK. WILL CONTINUE PLAN OF CARE. CALL LIGHT IN REACH. BED LOWERED AND LOCKED.
[2018-09-07 00:11] VITALS: BP 100/60
--- NOTE | 2018-09-07 03:08 | NUR ---
EYES CLOSED RESPIRATIONS WITH EASE AND UNLABORED. SR UP X2 CALL LIGHT WITHIN REACH.
[2018-09-07 04:33] VITALS: BP 107/55
[2018-09-07 06:27] LABS: CALC OSMOLALITY 267 mosm/kg (275-300); CARBON DIOXIDE 23.1 mmol/L (21.0-32.0); CHLORIDE - SERUM 98 mmol/L (98-107); CREATININE - SERUM 0.7 mg/dL (0.6-1.3); GLUCOSE 110 mg/dL (74-106); SODIUM 134 mmol/L (136-145); UREA NITROGEN 9 mg/dL (7-18); eGFR NON AFRICAN AMERICAN > 90 mL/min (90-120)
[2018-09-07 06:31] LABS: POTASSIUM - SERUM 5.4 mmol/L (3.5-5.1)
[2018-09-07 06:39] LABS: HEMATOCRIT 30.8 % (42.0-54.0); HEMOGLOBIN 10.9 g/dL (13.5-17.5); LYMPHOCYTES 21.7 % (15-50); MCH 30.6 pg (26.0-34.0); MCHC 35.4 g/dL (31.0-37.0); MCV 86.5 fL (80.0-100.0); MEAN PLATELET VOLUME 8.6 fL (7.4-10.4); NEUTROPHILS 68.3 % (40-80); PLATELET COUNT 324 10x3/uL (130-400); RBC 3.56 10x6/uL (4.20-6.10); RDW 13.4 % (11.5-14.5); WBC 6.9 10x3/uL (4.8-10.8)
[2018-09-07 09:00] VITALS: BP 96/48
--- NOTE | 2018-09-07 09:36 | MORECARE ---
CASE MANAGEMENT DISCHARGE SUMMARY PATIENT: MARCELLUS EDWARDS UNIT: [id number] ADM DATE: 09/05/18 AGE: 58 : 64 SEX: M ROOM/BED: D.2233 AUTHOR: DIMITRIOS,DOC PHYSICIAN: REFERRING PHYSICIAN: JOSE ALBERTO JACOBSON MD DATE OF SERVICE: 09/07/18 Discharge Plan Patient Name: MARCELLUS EDWARDS Facility: [facility]:[place] : 1960 Planned Disposition: Home with Home Health Anticipated Discharge Date: Discharge Date: Expected LOS: Initial Reviewer: [email or web address] Initial Review Date: 09/07/2018 Generated: 09/07/18 10:36 am Comments DCP- Discharge Planning Updated by [email or web address]: Almaz Moran on 09/07/18 8:[address] Patient Name: MARCELLUS EDWARDS Admission Status: ER Accout number: [id number] Admission Date: 09-05-2018 : 1960 Admission Diagnosis: Attending: JOSE ALBERTO JACOBSON Current LOS: 2 Anticipated DC Date: Planned Disposition: Home with Home Health Primary Insurance: [email or web address] Discharge Planning Comments: CM met with patient to discuss discharge plan, he is alone in the room. He states he was to have his F/U today in the office. States he had pain and home and had to come via ambulance. States he is independent with ADL's. States his girlfriend has been assisting with IV antibiotic injections. States he has all the DME that he needs. [facility] will continue [facility] with [facility] and [facility] if needed. will continue to follow and assist with discharge planning/needs. Dynamics Ax Technical Architect: Almaz Moran DCPIA - Discharge Planning Initial Assessment Updated by [id number]: Almaz Moran on 09/07/18 9:33 am * Is the patient Alert and Oriented? Yes * How many steps to enter\exit or inside your home? 3/0 * PCP Dr. Haynes * Pharmacy [facility] on [place] * Preadmission Environment Home Alone * ADLs Independent * Equipment Nebulizer Other Oxygen * Other Equipment IV supplies from [place] * List name and contact numbers for known caregivers / representatives who currently or will assist patient after discharge: Addis Cabral - girlfriend - [phone] * Verbal permission to speak to the caregivers and representatives has been obtained from the patient. Yes * Community resources currently utilized Home Health Infusion Services * Please name any agencies selected above. [facility] infusion [facility] * Additional services required to return to the preadmission environment? No * Can the patient safely return to the preadmission environment? Yes * Has this patient been hospitalized within the prior 30 days at any hospital? Yes Patient Name: MARCELLUS EDWARDS Page [phone] at 0936 All edits/amendments must be made on the electronic document DICTATION DATE: 09/07/18935 DESULFURIZER HAND: GIOVANNA 09/07/18935 RPT#: [id number] DC DATE: STATUS: ADM IN [facility] [address] [place] [address] END OF REPORT
--- NOTE | 2018-09-07 12:53 | NUR ---
NUTRITION F/U PT TOLERATING REG DIET, FAMILY PROVIDED BREAKFAST THIS AM. NO COMPLAINTS. WILL HONOR FOOD PREFERENCES, MONITOR PO INTAKE. RD FOLLOWING
[2018-09-07 13:56] VITALS: BP 117/63
[2018-09-07 17:12] VITALS: BP 116/72
--- NOTE | 2018-09-08 07:15 | NUR ---
MORNING ASSESSMENT COMPLETE. SEE ASSESSMENT FLOWSHEET FOR FURTHER DETILS. PT LYING IN BED AAO X4 TO PERSON, PLACE, TIME AND SITATION. DENIES NEEDES AT THIS TIME. CL IN REACH. SIDE RAILS UP X3 FOR PATIENT SAFETY. FAMILY MEMEBER AT BEDSIDE.
[2018-09-08 08:23] LABS: BASOPHILS 0.3 % (0-2); EOSINOPHILS 2.9 % (0-7); HEMATOCRIT 30.7 % (42.0-54.0); HEMOGLOBIN 10.3 g/dL (13.5-17.5); IMMATURE GRANULOCYTES 0.5 % (0-5); LYMPHOCYTES 14.6 % (15-50); MCH 27.9 pg (26.0-34.0); MCHC 33.6 g/dL (31.0-37.0); MEAN PLATELET VOLUME 8.3 fL (7.4-10.4); MONOCYTES 9.3 % (2-11); NEUTROPHILS 72.4 % (40-80); PLATELET COUNT 331 10x3/uL (130-400); RBC 3.69 10x6/uL (4.20-6.10); RDW 13.2 % (11.5-14.5); WBC 6.1 10x3/uL (4.8-10.8)
[2018-09-08 08:33] LABS: MCV 83.2 fL (80.0-100.0)
[2018-09-08 08:42] LABS: CALC OSMOLALITY 271 mosm/kg (275-300); CALCIUM 8.4 mg/dL (8.5-10.1); CARBON DIOXIDE 25.8 mmol/L (21.0-32.0); CHLORIDE - SERUM 100 mmol/L (98-107); CREATININE - SERUM 0.8 mg/dL (0.6-1.3); GLUCOSE 104 mg/dL (74-106); POTASSIUM - SERUM 3.8 mmol/L (3.5-5.1); SODIUM 137 mmol/L (136-145); UREA NITROGEN 8 mg/dL (7-18); eGFR NON AFRICAN AMERICAN > 90 mL/min (90-120)
[2018-09-08 08:46] VITALS: BP 120/73
[2018-09-08 12:46] VITALS: BP 120/66
[2018-09-08 18:16] VITALS: BP 115/76
[2018-09-08 21:36] VITALS: BP 122/77
--- NOTE | 2018-09-09 00:29 | NUR ---
RESTING IN BED RESPRATIONS EVEN AND UNLABORED CALL LIGHT IN REACH.
[2018-09-09 04:55] LABS: BASOPHILS 0.9 % (0-2); EOSINOPHILS 4.1 % (0-7); HEMATOCRIT 31.6 % (42.0-54.0); HEMOGLOBIN 10.5 g/dL (13.5-17.5); IMMATURE GRANULOCYTES 0.7 % (0-5); LYMPHOCYTES 24.3 % (15-50); MCHC 33.2 g/dL (31.0-37.0); MCV 84.3 fL (80.0-100.0); MEAN PLATELET VOLUME 8.1 fL (7.4-10.4); MONOCYTES 8.7 % (2-11); NEUTROPHILS 61.3 % (40-80); PLATELET COUNT 354 10x3/uL (130-400); RBC 3.75 10x6/uL (4.20-6.10); RDW 13.5 % (11.5-14.5); WBC 5.6 10x3/uL (4.8-10.8)
[2018-09-09 05:00] VITALS: BP 129/74
[2018-09-09 05:04] LABS: CALC OSMOLALITY 272 mosm/kg (275-300); CALCIUM 8.2 mg/dL (8.5-10.1); CARBON DIOXIDE 27.8 mmol/L (21.0-32.0); CHLORIDE - SERUM 100 mmol/L (98-107); CREATININE - SERUM 0.8 mg/dL (0.6-1.3); GLUCOSE 92 mg/dL (74-106); POTASSIUM - SERUM 3.6 mmol/L (3.5-5.1); SODIUM 137 mmol/L (136-145); UREA NITROGEN 9 mg/dL (7-18); eGFR NON AFRICAN AMERICAN > 90 mL/min (90-120)
[2018-09-09 10:04] VITALS: BP 115/75
--- NOTE | 2018-09-09 13:09 | NUR ---
ALERT AND ORIENTED. ATIVAN GIVEN FOR ANXIETY AND EFFECTIVE.O2 2L N/C. MIDLINE IV INFUSING AT PRESCRIBED RATED. BOTTLE HOUSE CLEANERS SUPERVISOR MS INFUSING AT PRESCRIBED RATE ALONG WITH ZOFRAN. DRAIN TO RT. SIDE FLUSHED PER ORDER.ENCOURAGED TO USE CALL LIGHT FOR ASSIST.
[2018-09-09 14:49] VITALS: BP 134/80
[2018-09-09 17:36] VITALS: BP 132/86
[2018-09-09 19:00] VITALS: BP 123/75
--- NOTE | 2018-09-09 19:00 | NUR ---
PT ALERT AND ORIENTED WHEN ENTERING THE ROOM. SIGNIFICANT OTHER ASSISTING PT WITH BATH. DENIES NEEDS AT THIS TIME. PT HAS LEFT UPPER MIDNLINE JENNIFER THAT IS RUNNING AT O WITH PHLEBOTOMY SERVICES TECHNICIAN PUMP AND ZOFRAN DRIP. PT UP AD PINO WHEN IN NEED. VERBALIZES UNDERSTANDING TO USE CALL LIGHT WHEN IN NEED OF ASSITANCE.
[2018-09-10] VITALS: BP 111/76
[2018-09-10 03:00] VITALS: BP 115/71
--- NOTE | 2018-09-10 03:59 | NUR ---
ASSESSED, PT IS AWAKE RESTING IN THE DARK WITH EASY RESPIRATIONS AND NO DISTRESS NOTED. INSPECTOR METAL FABRICATING IN USE.
--- NOTE | 2018-09-10 07:41 | NUR ---
AWAKE AND ALERT. OREITNED X3. NO C/O AT THIS TIME. LUNGS HAVE INSPIRATORY WHEEZES NOTED. NO COUGH NOTED. SKIN IS INTACT WITHOUT REDNESS. MIDLINE TO LEFT UPPER ARM IS PATENT WITHOUT REDNESS AT INSERTION SITE. DRAIN TO RIGHT SIDE OF CHEST IS PATENT WITH SCANT BLOODY DRAINAGE NOTED. DENIES NEEDS.
[2018-09-10 09:52] LABS: BASOPHILS 0.7 % (0-2); EOSINOPHILS 2.2 % (0-7); HEMATOCRIT 36.1 % (42.0-54.0); HEMOGLOBIN 12.3 g/dL (13.5-17.5); IMMATURE GRANULOCYTES 0.7 % (0-5); LYMPHOCYTES 15.6 % (15-50); MCH 28.6 pg (26.0-34.0); MCHC 34.1 g/dL (31.0-37.0); MEAN PLATELET VOLUME 8.3 fL (7.4-10.4); MONOCYTES 6.3 % (2-11); NEUTROPHILS 74.5 % (40-80); RDW 13.7 % (11.5-14.5)
[2018-09-10 09:57] LABS: PLATELET COUNT 451 10x3/uL (130-400); WBC 7.2 10x3/uL (4.8-10.8)
--- NOTE | 2018-09-10 10:00 | NUR ---
ATE MOST OF BREAKFAST BROUGHT IN FROM OUTSIDE. TOOK AM MEDS WITHOUT DIFFICULTY.
[2018-09-10 10:04] LABS: CALC OSMOLALITY 273 mosm/kg (275-300); CALCIUM 9.2 mg/dL (8.5-10.1); CARBON DIOXIDE 24.2 mmol/L (21.0-32.0); CHLORIDE - SERUM 99 mmol/L (98-107); CREATININE - SERUM 0.8 mg/dL (0.6-1.3); GLUCOSE 116 mg/dL (74-106); SODIUM 137 mmol/L (136-145); UREA NITROGEN 9 mg/dL (7-18); eGFR NON AFRICAN AMERICAN > 90 mL/min (90-120)
[2018-09-10 10:58] VITALS: BP 113/69
--- NOTE | 2018-09-10 13:52 | NUR ---
REQUESTED AND GIVNE ONE MG ATIVAN SLOW IVP FOR C/O ANXIETY. WILL MONITOR.
[2018-09-10 14:18] VITALS: BP 102/66
[2018-09-10 17:57] VITALS: BP 108/72
--- NOTE | 2018-09-10 18:30 | NUR ---
ATE ALL OF SUPPER. DENIES NEEDS. NO CHANGES NOTED.
[2018-09-10 19:00] VITALS: BP 121/73
--- NOTE | 2018-09-10 20:00 | NUR ---
ALERT SITTING UP IN BED VISITORS AT BEDSIDE, REQUESTING ATIVAN AT 2030, MIDLINE IV TO LEFT UPPER ARM SITE CLEAR, BILE DRAIN INPLACE TO RIGHT UPPER BACK SEROUS DRAINAGE NOTED IN BAG SMALL AMOUNT, CALL LIGHT IN REACH, DENIES NEEDS AT THIS TIME, PAIN CONTROLED WITH DIRECTOR INSTITUTION
[2018-09-11] VITALS: BP 119/71
[2018-09-11 03:00] VITALS: BP 121/57
[2018-09-11 06:58] LABS: ALBUMIN 2.3 g/dL (3.4-5.0); ALKALINE PHOSPHATASE 58 U/L (46-116); ALT (SGPT) 16 U/L (10-68); BILIRUBIN - TOTAL 0.26 mg/dL (0.2-1.3); CALC OSMOLALITY 270 mosm/kg (275-300); CALCIUM 8.5 mg/dL (8.5-10.1); CARBON DIOXIDE 25.9 mmol/L (21.0-32.0); CHLORIDE - SERUM 101 mmol/L (98-107); CREATININE - SERUM 0.8 mg/dL (0.6-1.3); GLUCOSE 103 mg/dL (74-106); POTASSIUM - SERUM 3.8 mmol/L (3.5-5.1); PROTEIN - SERUM 6.5 g/dL (6.4-8.2); SODIUM 136 mmol/L (136-145); UREA NITROGEN 11 mg/dL (7-18); eGFR NON AFRICAN AMERICAN > 90 mL/min (90-120)
[2018-09-11 07:01] LABS: BASOPHILS 0.6 % (0-2); EOSINOPHILS 3.3 % (0-7); HEMATOCRIT 32.3 % (42.0-54.0); HEMOGLOBIN 10.7 g/dL (13.5-17.5); IMMATURE GRANULOCYTES 0.9 % (0-5); LYMPHOCYTES 17.8 % (15-50); MCHC 33.1 g/dL (31.0-37.0); MCV 84.6 fL (80.0-100.0); MEAN PLATELET VOLUME 8.1 fL (7.4-10.4); MONOCYTES 9.4 % (2-11); PLATELET COUNT 401 10x3/uL (130-400); RBC 3.82 10x6/uL (4.20-6.10); RDW 13.9 % (11.5-14.5); WBC 6.4 10x3/uL (4.8-10.8)
[2018-09-11 09:27] VITALS: BP 115/71
[2018-09-11 13:20] VITALS: BP 113/67
--- NOTE | 2018-09-11 16:22 | NUR ---
ALERT AND ORIENTED. VERBALIZED BACK PAIN SOME BETTER. PICC INTACT TO LUE. AND INFUSING AT PRESCRIBED RATE. DENIES ANY NAUSEA IF ZOFRAN GTT. AMBULATES AD PINO IN HALLWAY. ENCOURAGED TO USE CALL LIGHT FOR ASSIST.
--- NOTE | 2018-09-11 16:30 | NUR ---
DISCUSSED DISCHARGE INSTRUCTIONS, MEDICATION, HOME HEALTH, AND FOLLOW-UP WITH PATIENT AND SPOUSE. VERABLIZED UNDERSTANDING. ALL BELONGINGS SENT WITH PATIENT. DISCHARGED HOME VIA WHEELCHAIR BY MOTION PICTURE CAMERA LENS TECHNICIAN.
[2018-09-11 17:02] VITALS: BP 111/72
[2018-09-11 19:00] VITALS: BP 107/69
--- NOTE | 2018-09-11 19:30 | NUR ---
RECIEVED REPORT, ASSUMED CARE, WALIKING AROUND UNIT WITH , DENIES NEEDS, IV INFUSING TO DANIE, BILI DRAIN, WILL CONTINUE TO MONITOR
[2018-09-12] VITALS: BP 101/61
[2018-09-12 03:00] VITALS: BP 110/57
--- NOTE | 2018-09-12 04:25 | NUR ---
PT RESTING QUIETLY, EYES CLOSED. RESP EVEN. NO DISTRESS NOTED. AGREE WITH CAUSTIC OPERATOR'S ASSESSMENT. CONTINUE PLAN OF CARE.
[2018-09-12 05:14] LABS: BASOPHILS 0.8 % (0-2); HEMATOCRIT 34.1 % (42.0-54.0); HEMOGLOBIN 11.5 g/dL (13.5-17.5); IMMATURE GRANULOCYTES 1.3 % (0-5); LYMPHOCYTES 18.7 % (15-50); MCH 28.3 pg (26.0-34.0); MCHC 33.7 g/dL (31.0-37.0); MCV 83.8 fL (80.0-100.0); MEAN PLATELET VOLUME 8.2 fL (7.4-10.4); MONOCYTES 7.8 % (2-11); NEUTROPHILS 67.4 % (40-80); PLATELET COUNT 427 10x3/uL (130-400); RBC 4.07 10x6/uL (4.20-6.10); RDW 13.9 % (11.5-14.5); WBC 7.1 10x3/uL (4.8-10.8)
[2018-09-12 05:39] LABS: ALBUMIN 2.5 g/dL (3.4-5.0); ALKALINE PHOSPHATASE 60 U/L (46-116); ALT (SGPT) 15 U/L (10-68); BILIRUBIN - TOTAL 0.28 mg/dL (0.2-1.3); CALC OSMOLALITY 269 mosm/kg (275-300); CALCIUM 8.7 mg/dL (8.5-10.1); CARBON DIOXIDE 25.4 mmol/L (21.0-32.0); CHLORIDE - SERUM 100 mmol/L (98-107); CREATININE - SERUM 0.8 mg/dL (0.6-1.3); GLUCOSE 107 mg/dL (74-106); POTASSIUM - SERUM 4.1 mmol/L (3.5-5.1); PROTEIN - SERUM 6.8 g/dL (6.4-8.2); SODIUM 135 mmol/L (136-145); UREA NITROGEN 12 mg/dL (7-18); eGFR NON AFRICAN AMERICAN > 90 mL/min (90-120)
[2018-09-12 08:21] VITALS: BP 120/71
[2018-09-12 12:20] VITALS: BP 109/69
[2018-09-12] MEDS ORDERED: FLORAJEN3 CAPS460 MG PO (15:03)
[2018-09-12] MEDS ORDERED: CIPRO500 MG PO (15:04)
[2018-09-12 16:00] VITALS: BP 107/64
--- NOTE | 2018-09-12 17:25 | NUR ---
BRAND DIRECTOR COMPLETE. NO SIGNS OF DSITRESS NOTED. CL IN REACH
[2018-09-12 20:00] VITALS: BP 128/66
--- NOTE | 2018-09-12 22:35 | NUR ---
THE PATIENT APPEARS TO BE SLEEPING COMFORTABLY. BED IS IN THE LOW POSITION WITH SIDERAILS X2 AND CALL LIGHT WITHIN REACH.
[2018-09-13] VITALS: BP 109/67
[2018-09-13 05:00] VITALS: BP 110/60
[2018-09-13 06:22] LABS: HEMATOCRIT 38.6 % (42.0-54.0); HEMOGLOBIN 12.7 g/dL (13.5-17.5); MCH 28.2 pg (26.0-34.0); MCHC 32.9 g/dL (31.0-37.0); MCV 85.6 fL (80.0-100.0); MEAN PLATELET VOLUME 8.5 fL (7.4-10.4); PLATELET COUNT 449 10x3/uL (130-400); RBC 4.51 10x6/uL (4.20-6.10); RDW 14.2 % (11.5-14.5); WBC 6.7 10x3/uL (4.8-10.8)
[2018-09-13 06:40] LABS: ALBUMIN 2.7 g/dL (3.4-5.0); ALKALINE PHOSPHATASE 65 U/L (46-116); ALT (SGPT) 18 U/L (10-68); BILIRUBIN - TOTAL 0.32 mg/dL (0.2-1.3); CALC OSMOLALITY 275 mosm/kg (275-300); CARBON DIOXIDE 27.9 mmol/L (21.0-32.0); CHLORIDE - SERUM 101 mmol/L (98-107); CREATININE - SERUM 0.9 mg/dL (0.6-1.3); GLUCOSE 99 mg/dL (74-106); PROTEIN - SERUM 7.3 g/dL (6.4-8.2); SODIUM 138 mmol/L (136-145); UREA NITROGEN 13 mg/dL (7-18); eGFR NON AFRICAN AMERICAN > 90 mL/min (90-120)
--- NOTE | 2018-09-13 07:50 | NUR ---
PATIENT WITH DX OF HEPTIC ABSCESS. DRAIN REMOVED YESTERDAY WITH PATIENT STAYING THROUGH NIGHT TO MONITOR NAUSEA. PATIENT DENIES NAUSEA OR PAIN AT THIS AM AND IS ANTICIPATING DISCHARGE HOME.
[2018-09-13 08:00] LABS: ANISOCYTOSIS OCC; EOSINOPHILS 5 % (0-7); LYMPHOCYTES 19 % (15-50); MONOCYTES 4 % (2-11); NEUTROPHILS 71 % (40-80); PLATELET ESTIMATE INCREASED; PLATELET MORPHOLOGY PLT CLUMPS PRESENT
[2018-09-13 08:27] VITALS: BP 112/66
[2018-09-13] MEDS ORDERED: MORPHINE IMMEDI15 MG PO (09:37)
--- NOTE | 2018-09-13 10:33 | MORECARE ---
CASE MANAGEMENT DISCHARGE SUMMARY PATIENT: MARCELLUS EDWARDS UNIT: [id number] ADM DATE: 09/05/18 AGE: 58 : 64 SEX: M ROOM/BED: D.2233 AUTHOR: DIMITRIOS,DOC PHYSICIAN: REFERRING PHYSICIAN: JOSE ALBERTO JACOBSON MD DATE OF SERVICE: 09/13/18 Discharge Plan Patient Name: MARCELLUS EDWARDS Facility: [facility]:[place] : 1960 Planned Disposition: Home with Home Health Anticipated Discharge Date: Discharge Date: Expected LOS: Initial Reviewer: [email or web address] Initial Review Date: 09/07/2018 Generated: 09/13/18 11:33 am Comments DCP- Discharge Planning Updated by [email or web address]: Almaz Moran on 09/13/18 9:[address] Received order for discharge today. I met with patient, he is alone in the room. He agrees to discharge today. He declines to continue [facility]. States "I only had it for IV antibiotics and I'm not going to have that anymore." I called and spoke to Raad at [facility] and informed. He denies other needs. His girlfriend will pick him up for discharge home. CM will continue to follow and assist with discharge planning/needs. DCP- Discharge Planning Updated by [email or web address]: Almaz Moran on 09/07/18 8:[address] Patient Name: MARCELLUS EDWARDS Admission Status: ER Accout number: [id number] Admission Date: 09-05-2018 : 1960 Admission Diagnosis: Attending: JOSE ALBERTO JACOBSON Current LOS: 2 Anticipated DC Date: Planned Disposition: Home with Home Health [facility] Discharge Planning Comments: CM met with patient to discuss discharge plan, he is alone in the room. He states he was to have his F/U today in the office. States he had pain and home and had to come via ambulance. States he is independent with ADL's. States his girlfriend has been assisting with IV antibiotic injections. States he has all the DME that he needs. States will continue HHS with [facility] and [facility] if needed. CM will continue to follow and assist with discharge planning/needs. Timber Cutter: Almaz Martinesjohana DCPIA - Discharge Planning Initial Assessment Updated by [email or web address]: Almaz Moran on 09/07/18 9:33 am * Is the patient Alert and Oriented? Yes * How many steps to enter\\exit or inside your home? 3/0 * PCP Dr. Haynes * Pharmacy [facility] on [address] * Preadmission Environment Home Alone * ADLs Independent * Equipment Nebulizer Other Oxygen * Other Equipment IV supplies from [place] * List name and contact numbers for known caregivers / representatives who currently or will assist patient after discharge: Addis Cabral - girlfriend - [phone] * Verbal permission to speak to the caregivers and representatives has been obtained from the patient. Yes * Community resources currently utilized [facility] Infusion [facility] * Please name any agencies selected above. [facility] [place] * Additional services required to return to the preadmission environment? No * Can the patient safely return to the preadmission environment? Yes * Has this patient been hospitalized within the prior 30 days at any hospital? Yes Coverage Notice Reviewer: [id number] - Almaz Dean Notice Issued Date-Time: 09/12/2018 15:17 Notice Type: IM Discharge Notice Notice Delivered To: Patient Relationship to Patient: Self Solution Designer Name: Delivery Method: HAND - Hand Delivered Elvira Days: Prior Verbal Notification: Recipient Understood Notice: Yes Recipient Signature: Yes Med Rec Note Co-signed by Attending: Coverage Notice Comment: IMM explained, signed, given, copy placed in MR Last DP export: 09/07/18 8:36 a Patient Name: MARCELLUS EDWARDS Page [id number] at 1033 All edits/amendments must be made on the electronic document DICTATION DATE: 09/13/18 1033 CLERK GENERAL: GIOVANNA 09/13/18 1033 RPT#: [id number] DC DATE: STATUS: ADM IN [facility] [address] [place] [address] END OF REPORT
--- NOTE | 2018-09-13 11:20 | NUR ---
MIDLINE REMOVED FROM LEFT UPPER ARM USING ASEPTIC TECHNIQUE. STERILE OCCLUSIVE DRESSING APPLIED, INSTRUCTED PATIENT TO LEAVE DRESSING INTACT FOR 24 HOURS, PATIENT VOICED UNDERSTANDING OF DISCHARGE INSTRUCTIONS. COPY OF INSTRUCTONS ALONG WITH WRITTEN PRESCRIPTION FOR MORPHINE TABLETS. PATIENT TAKEN BY WHEELCHAIR WITH ASSISTANCE FROM VOLUNTEER TO PRIVATE CAR. FAMILY MEMBER AT BEDSIDE
--- NOTE | 2018-09-15 08:30 | MORECARE ---
CASE MANAGEMENT DISCHARGE SUMMARY PATIENT: MARCELLUS EDWARDS UNIT: [id number] ADM DATE: 09/05/18 AGE: 58 : 64 SEX: M ROOM/BED: D.2233 AUTHOR: DIMITRIOS,DOC PHYSICIAN: REFERRING PHYSICIAN: JOSE ALBERTO JACOBSON MD DATE OF SERVICE: 09/15/18 Discharge Plan Patient Name: MARCELLUS EDWARDS Facility: [facility]:[place] : 1960 Planned Disposition: Home with Home Health Anticipated Discharge Date: Discharge Date: 09/13/2018 Expected LOS: 0 Initial Reviewer: [email or web address] Initial Review Date: 09/07/2018 Generated: 09/15/18 9:30 am Comments DCP- Discharge Planning Updated by [email or web address]: Almaz Moran on 09/13/18 9:[address] Received order for discharge today. I met with patient, he is alone in the room. He agrees to discharge today. He declines to continue [facility]. States "I only had it for IV antibiotics and I'm not going to have that anymore." I called and spoke to Raad at [employer] [facility] and informed. He denies other needs. His girlfriend will pick him up for discharge home. CM will continue to follow and assist with discharge planning/needs. DCP- Discharge Planning Updated by [email or web address]: Almaz Dean on 09/07/18 8:[address] Patient Name: MARCELLUS EDWARDS Admission Status: ER Accout number: [id number] Admission Date: 09-05-2018 : 1960 Admission Diagnosis: Attending: JOSE ALBERTO JACOBSON Current LOS: 2 Anticipated DC Date: Planned Disposition: Home with Home Health [facility] Discharge Planning Comments: CM met with patient to discuss discharge plan, he is alone in the room. He states he was to have his F/U today in the office. States he had pain and home and had to come via ambulance. States he is independent with ADL's. States his girlfriend has been assisting with IV antibiotic injections. States he has all the DME that he needs. States will continue HHS with [facility] and [facility] if needed. CM will continue to follow and assist with discharge planning/needs. Drafter: Almaz Moran DCPIA - Discharge Planning Initial Assessment Updated by [email or web address]: Almaz Moran on 09/07/18 9:33 am * Is the patient Alert and Oriented? Yes * How many steps to enter\\exit or inside your home? 3/0 * PCP Dr. Haynes * Pharmacy [facility] on [address] * Preadmission Environment Home Alone * ADLs Independent * Equipment Nebulizer Other Oxygen * Other Equipment IV supplies from [place] * List name and contact numbers for known caregivers / representatives who currently or will assist patient after discharge: Addis Cabral - girlfriend - [phone] * Verbal permission to speak to the caregivers and representatives has been obtained from the patient. Yes * Community resources currently utilized Home Health Infusion Services * Please name any agencies selected above. [facility] * Additional services required to return to the preadmission environment? No * Can the patient safely return to the preadmission environment? Yes * Has this patient been hospitalized within the prior 30 days at any hospital? Yes Coverage Notice Reviewer: [id number] - Almaz Moran Notice Issued Date-Time: 09/12/2018 15:17 Notice Type: IM Discharge Notice Notice Delivered To: Patient Relationship to Patient: Self Freedom Of Information Officer Name: Delivery Method: HAND - Hand Delivered Elvira Days: Prior Verbal Notification: Recipient Understood Notice: Yes Recipient Signature: Yes Med Rec Note Co-signed by Attending: Coverage Notice Comment: IMM explained, signed, given, copy placed in MR Last DP export: 09/13/18 9:33 a Patient Name: MARCELLUS EDWARDS Page [phone] at 0830 All edits/amendments must be made on the electronic document DICTATION DATE: 09/15/18829 CHAIN MORTISER OPERATOR: GIOVANNA 09/15/18829 RPT#: [id number] DC DATE:09/13/18 STATUS: DIS IN [facility] [address] [facility] [place] [address] END OF REPORT
== END 2018-09-13 11:25 | disposition home health service (06) | DRG 442 ==
LOC: D.ER 10:19 → D.EDHOLD 12:30 → D.MS 12:30
PROVIDERS: Family Medicine; Specialist; ADMIT Internal Medicine Nephrology
PROC: 0F903ZZ Drainage of Liver, Percutaneous Approach (ICD-10-PCS; principal; 2018-09-06 11:15)
PROC: 0FP0X0Z Removal of Drainage Device from Liver, External Approach (ICD-10-PCS; 2018-09-12)
DX: K75.0 Abscess of liver (principal); J96.11 Chronic respiratory failure with hypoxia; I10 Essential (primary) hypertension; I25.10 Atherosclerotic heart disease of native coronary artery without angina pectoris; E78.5 Hyperlipidemia, unspecified; J44.9 Chronic obstructive pulmonary disease, unspecified; F32.9 Major depressive disorder, single episode, unspecified; D64.9 Anemia, unspecified

== ENCOUNTER → 2018-09-26 09:19 | Outpatient (CLI) | payer OTHER ==
[2018-09-06 12:53] VITALS: BMI 32.3
[~2018-09-26 09:19] MED LIST changes: +CIPRO500 MG PO; +FLORAJEN3 CAPS460 MG PO; +KLONOPIN0.5 MG PO; +MORPHINE IMMEDI15 MG PO; +VANCOCIN HCL250 MG PO; +ZOFRAN4 MG PO
== END | disposition home or self-care (01) ==
LOC: D.CT 09-21 10:00
PROVIDERS: ATTEND Student in an Organized Health Care Education/Training Program
DX: K75.0 Abscess of liver (principal)

== ENCOUNTER 2018-09-26 17:28 | Inpatient (IN) | payer OTHER ==
[~2018-09-26] VITALS: Ht 170.2 cm; Wt 91.2 kg
[~2018-09-26 17:28] MED LIST changes: -KLONOPIN0.5 MG PO; -VANCOCIN HCL250 MG PO; -ZOFRAN4 MG PO
[2018-09-26] MEDS ORDERED: KLONOPIN0.5 MG PO (18:26)
[2018-09-26] MEDS ORDERED: ZOFRAN4 MG PO (18:27)
--- NOTE | 2018-09-26 18:55 | NUR ---
PROVIDED PATIENT WITH URINAL THIS TIME.
--- NOTE | 2018-09-26 18:59 | NUR ---
REPORT GIVEN TO DEIDRE RANDALL AT THIS TIME
[2018-09-26 19:25] LABS: BASOPHILS 0.3 % (0-2); EOSINOPHILS 1.8 % (0-7); HEMATOCRIT 37.5 % (42.0-54.0); HEMOGLOBIN 12.6 g/dL (13.5-17.5); IMMATURE GRANULOCYTES 0.3 % (0-5); LYMPHOCYTES 18.1 % (15-50); MCH 27.8 pg (26.0-34.0); MCHC 33.6 g/dL (31.0-37.0); MCV 82.8 fL (80.0-100.0); MEAN PLATELET VOLUME 8.7 fL (7.4-10.4); MONOCYTES 6.1 % (2-11); NEUTROPHILS 73.4 % (40-80); RBC 4.53 10x6/uL (4.20-6.10); RDW 13.6 % (11.5-14.5); WBC 6.2 10x3/uL (4.8-10.8)
[2018-09-26 19:30] LABS: APPEARANCE CLEAR (CLEAR); BILIRUBIN NEGATIVE (NEGATIVE); COLOR YELLOW (YELLOW); GLUCOSE NEGATIVE (NEGATIVE); KETONE NEGATIVE (NEGATIVE); NITRITE NEGATIVE (NEGATIVE); PROTEIN TRACE mg/dL (NEGATIVE); SPECIFIC GRAVITY 1.025 (1.005-1.020); UROBILINOGEN NORMAL (NORMAL)
[2018-09-26 19:30] LABS: PLATELET COUNT 329 10x3/uL (130-400)
--- NOTE | 2018-09-26 19:30 | NUR ---
PT RESTING ON BED, NO S/S OF ACUTE DISTRESS NOTED AT THIS TIME.
[2018-09-26 19:41] LABS: ALBUMIN 3.1 g/dL (3.4-5.0); ALKALINE PHOSPHATASE 108 U/L (46-116); ALT (SGPT) 24 U/L (10-68); BILIRUBIN - TOTAL 0.66 mg/dL (0.2-1.3); CALC OSMOLALITY 272 mosm/kg (275-300); CALCIUM 9.3 mg/dL (8.5-10.1); CARBON DIOXIDE 24.7 mmol/L (21.0-32.0); CHLORIDE - SERUM 97 mmol/L (98-107); GLUCOSE 108 mg/dL (74-106); POTASSIUM - SERUM 3.7 mmol/L (3.5-5.1); PROTEIN - SERUM 8.2 g/dL (6.4-8.2); SODIUM 136 mmol/L (136-145); UREA NITROGEN 13 mg/dL (7-18); eGFR NON AFRICAN AMERICAN 82 mL/min (90-120)
[2018-09-26 19:45] VITALS: BP 150/81
--- NOTE | 2018-09-26 20:45 | NUR ---
2 RNS ATTEMPTED TO GAIN IV ACCESS, UNSUCCESSFUL AT THIS TIME. PT FAMILY AT BEDSIDE.
--- NOTE | 2018-09-26 21:45 | NUR ---
PT TEMP 101, EDP NOTIFIED. PT RESTING ON BED. PT AND FAMILY UPDATED ON PLAN OF CARE.
--- NOTE | 2018-09-26 22:15 | NUR ---
RN ADMINISTERED IBUPROFEN FOR PT FEVER. PT AMBULATED TO RESTROOM WITH A STEADY GAIT. PT FAMILY AT BEDSIDE.
[2018-09-26 23:41] VITALS: BP 111/60; BMI 31.5
[2018-09-27 01:27] VITALS: BP 111/60
[2018-09-27 04:53] LABS: BASOPHILS 0.7 % (0-2); EOSINOPHILS 3.7 % (0-7); HEMATOCRIT 33.7 % (42.0-54.0); HEMOGLOBIN 11.1 g/dL (13.5-17.5); IMMATURE GRANULOCYTES 0.7 % (0-5); MCH 27.5 pg (26.0-34.0); MCHC 32.9 g/dL (31.0-37.0); MCV 83.4 fL (80.0-100.0); MEAN PLATELET VOLUME 8.5 fL (7.4-10.4); MONOCYTES 9.1 % (2-11); NEUTROPHILS 59.8 % (40-80); PLATELET COUNT 291 10x3/uL (130-400); RBC 4.04 10x6/uL (4.20-6.10); RDW 13.6 % (11.5-14.5)
[2018-09-27 04:56] LABS: WBC 4.3 10x3/uL (4.8-10.8)
[2018-09-27 05:11] LABS: ALBUMIN 2.6 g/dL (3.4-5.0); ALKALINE PHOSPHATASE 80 U/L (46-116); BILIRUBIN - TOTAL 0.47 mg/dL (0.2-1.3); CALC OSMOLALITY 275 mosm/kg (275-300); CALCIUM 8.5 mg/dL (8.5-10.1); CARBON DIOXIDE 29.1 mmol/L (21.0-32.0); CHLORIDE - SERUM 101 mmol/L (98-107); GLUCOSE 97 mg/dL (74-106); MAGNESIUM - SERUM 1.9 mg/dL (1.8-2.4); PHOSPHOROUS 4.7 mg/dL (2.5-4.9); POTASSIUM - SERUM 3.9 mmol/L (3.5-5.1); PROTEIN - SERUM 6.7 g/dL (6.4-8.2); SODIUM 138 mmol/L (136-145); UREA NITROGEN 12 mg/dL (7-18); eGFR NON AFRICAN AMERICAN 82 mL/min (90-120)
[2018-09-27 05:18] VITALS: BP 103/64
[2018-09-27 05:32] LABS: ALT (SGPT) 32 U/L (10-68)
--- NOTE | 2018-09-27 07:15 | NUR ---
MORNING ASSESSMENT COMPLETE. SEE ASSESSMENT FLOWSHEET FOR FURHTER DETAILS. PT LYING IN BED AAO X4 TO PERSON, PLACE, TIME, AND SITUATION. DENIES NEEDS AT THIS TIME. GOING IN FOR CT GUIDED HEPATIC DRAIN TODAY. REPORTS SOME ANXIETY- WILL TREAT WITH ATIVAN. CL IN REACH. SIDE RAILS UP X3 FOR PATIENT NYDIA
[2018-09-27 07:35] LABS: APTT 36.3 SECONDS (22.8-39.4); INR 1.13 (0.85-1.17)
[2018-09-27 09:17] VITALS: BP 108/67
[2018-09-27 09:45] VITALS: BMI 31.5
[2018-09-27 12:45] VITALS: BP 139/81
[2018-09-28] VITALS (7 sets, daily range): BP systolic 98–125; BP diastolic 58–77; Ht 170.2 cm; Wt 91.2 kg
[2018-09-28 06:04] LABS: BASOPHILS 0.2 % (0-2); EOSINOPHILS 1.6 % (0-7); HEMATOCRIT 33.9 % (42.0-54.0); HEMOGLOBIN 11.1 g/dL (13.5-17.5); IMMATURE GRANULOCYTES 0.4 % (0-5); LYMPHOCYTES 15.1 % (15-50); MCH 27.2 pg (26.0-34.0); MCHC 32.7 g/dL (31.0-37.0); MCV 83.1 fL (80.0-100.0); MEAN PLATELET VOLUME 8.6 fL (7.4-10.4); MONOCYTES 7.8 % (2-11); NEUTROPHILS 74.9 % (40-80); PLATELET COUNT 264 10x3/uL (130-400); RBC 4.08 10x6/uL (4.20-6.10); RDW 13.8 % (11.5-14.5); WBC 5.1 10x3/uL (4.8-10.8)
[2018-09-28 06:34] LABS: ALBUMIN 2.6 g/dL (3.4-5.0); ALKALINE PHOSPHATASE 82 U/L (46-116); ALT (SGPT) 29 U/L (10-68); BILIRUBIN - TOTAL 0.42 mg/dL (0.2-1.3); CALC OSMOLALITY 270 mosm/kg (275-300); CALCIUM 7.9 mg/dL (8.5-10.1); CARBON DIOXIDE 27.5 mmol/L (21.0-32.0); CHLORIDE - SERUM 98 mmol/L (98-107); CREATININE - SERUM 0.9 mg/dL (0.6-1.3); GLUCOSE 92 mg/dL (74-106); POTASSIUM - SERUM 3.4 mmol/L (3.5-5.1); PROTEIN - SERUM 6.8 g/dL (6.4-8.2); SODIUM 136 mmol/L (136-145); UREA NITROGEN 9 mg/dL (7-18); eGFR NON AFRICAN AMERICAN > 90 mL/min (90-120)
--- NOTE | 2018-09-28 07:40 | NUR ---
PT RESTING WITH EYES CLOSED. AROUSED BY LOUD VERBAL STIMULI. NO S/S OF ACUTE DISTRESS. ETCHER PHOTOENGRAVING IN TELLING PT "TO CALL GF SHE WAS CONCERNED". CL IN PLACE.
[2018-09-28 11:21] LABS: FUNGUS STAIN Final report (())
[2018-09-28 18:08] LABS: ACID FAST SMEAR Negative (()); AFB SPECIMEN PROCESSING Concentration (())
--- NOTE | 2018-09-28 18:26 | NUR ---
RESTING IN BED. FAMILY AT BEDSIDE. CO OF ANXIETY. ATIVAN GIVEN PER MD ORDER. NO S/S OF ACUTE DISTRESS. PER DR LUO TEMPORARY ISOLATION FOR POSSIBLE CDIFF. NO S/S OF ACUTE DISTRESS. CL IN PLACE.
[2018-09-29] VITALS: BP 110/65
--- NOTE | 2018-09-29 03:58 | NUR ---
I have reviewed this patient and I concur with the Shift Assessment completed by the Licensed Practical Nurse today this shift.
[2018-09-29 05:06] LABS: BASOPHILS 0.5 % (0-2); EOSINOPHILS 7.4 % (0-7); HEMATOCRIT 30.8 % (42.0-54.0); HEMOGLOBIN 10.1 g/dL (13.5-17.5); IMMATURE GRANULOCYTES 0.5 % (0-5); LYMPHOCYTES 25.3 % (15-50); MCH 26.9 pg (26.0-34.0); MCHC 32.8 g/dL (31.0-37.0); MCV 81.9 fL (80.0-100.0); MEAN PLATELET VOLUME 8.5 fL (7.4-10.4); NEUTROPHILS 53.3 % (40-80); PLATELET COUNT 238 10x3/uL (130-400); RBC 3.76 10x6/uL (4.20-6.10); RDW 13.6 % (11.5-14.5); WBC 4.1 10x3/uL (4.8-10.8)
[2018-09-29 05:22] LABS: ALBUMIN 2.1 g/dL (3.4-5.0); ALKALINE PHOSPHATASE 73 U/L (46-116); BILIRUBIN - TOTAL 0.21 mg/dL (0.2-1.3); CALCIUM 7.7 mg/dL (8.5-10.1); CARBON DIOXIDE 27.4 mmol/L (21.0-32.0); CHLORIDE - SERUM 105 mmol/L (98-107); CREATININE - SERUM 0.7 mg/dL (0.6-1.3); GLUCOSE 93 mg/dL (74-106); POTASSIUM - SERUM 3.4 mmol/L (3.5-5.1); PROTEIN - SERUM 5.9 g/dL (6.4-8.2); SODIUM 140 mmol/L (136-145); eGFR NON AFRICAN AMERICAN > 90 mL/min (90-120)
[2018-09-29 05:27] LABS: ALT (SGPT) 21 U/L (10-68); CALC OSMOLALITY 276 mosm/kg (275-300); UREA NITROGEN 6 mg/dL (7-18)
--- NOTE | 2018-09-29 07:15 | NUR ---
MORNING ASSESSMENT COMPLETE. SEE ASSESSMENT FLOWSHEET FOR FURTHER DETAILS. PT LYING IN BED AAO X4 TO PERSON, PLACE, TIME, AND SITUATION. DENIES NEEDS AT T THIS TIME. CL IN REACH. AT BEDSIDE.
[2018-09-29 09:36] VITALS: BP 111/67
--- NOTE | 2018-09-29 10:48 | NUR ---
NUTRITION F/U PT REMAINS IN ISOLATION. TIE CUTTER REPORTS PT WITH GOOD INTAKE REG DIET. WILL CONTINUE TO PROVIDE DIET, HONOR FOOD PREFERENCES. RD FOLLOWING
--- NOTE | 2018-09-29 11:17 | MORECARE ---
CASE MANAGEMENT DISCHARGE SUMMARY PATIENT: MARCELLUS EDWARDS UNIT: [id number] ADM DATE: 09/26/18 AGE: 58 : 64 SEX: M ROOM/BED: D.2204 AUTHOR: DIMITRIOS,DOC PHYSICIAN: REFERRING PHYSICIAN: JINA MCCAIN MD DATE OF SERVICE: 09/29/18 Discharge Plan Patient Name: MARCELLUS EDWARDS Facility: [facility]:[place] : 1960 Planned Disposition: Home or Self Care Anticipated Discharge Date: Discharge Date: Expected LOS: Initial Reviewer: [email or web address] Initial Review Date: 09/26/2018 Generated: 09/29/18 12:17 pm Comments DCP- Discharge Planning Updated by [email or web address]: Kathleen Monte on 09/29/18 10:[address] Patient Name: MARCELLUS EDWARDS Admission Status: ER Accout number: [id number] Admission Date: 09-26-2018 : 1960 Admission Diagnosis:ABSCESS OF LIVER Attending: JINA MCCAIN Current LOS: 3 Anticipated DC Date: Planned Disposition: Home or Self Care Primary Insurance: [employer] Discharge Planning Comments: CM met with patient to complete initial dc planning assessment. CM educated patient on the CM role and verbal consent given by patient to complete assessment. Patient lives at home where he is independent with his care. At discharge patient plans to return home and feels this is a safe discharge. 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 CM discussed availability of home health, rehab services, and medical equipment. He has had home health in the past, but not current with any company. Patient denied known discharge needs at this time. He has mason nebulizer and home O2 . CM will continue to follow and will assist as needed with dc plans/needs. Security System Analyst: Kathleen Monte DCPIA - Discharge Planning Initial Assessment Updated by [email or web address]: Kathleen Monte on 09/29/18 11:11 am * Is the patient Alert and Oriented? Yes * How many steps to enter\exit or inside your home? * PCP KHOI * Pharmacy [facility] ON [address] * Preadmission Environment Home Alone * ADLs Independent * Equipment Nebulizer Oxygen * List name and contact numbers for known caregivers / representatives who currently or will assist patient after discharge: MAGALY LEMOS (GIRLFRIEND) [phone] * Verbal permission to speak to the caregivers and representatives has been obtained from the patient. Yes * Community resources currently utilized None * Additional services required to return to the preadmission environment? No * Can the patient safely return to the preadmission environment? Yes * Has this patient been hospitalized within the prior 30 days at any hospital? Yes Patient Name: MARCELLUS EDWARDS Page [phone] at 1117 All edits/amendments must be made on the electronic document DICTATION DATE: 09/29/18 1116 PONY CYLINDER PRESS OPERATOR: GIOVANNA 09/29/18 1116 RPT#: [id number] DC DATE: STATUS: ADM IN [facility] [address] [place] [address] END OF REPORT
[2018-09-29 13:01] VITALS: BP 110/75
[2018-09-29 17:31] VITALS: BP 114/74
[2018-09-29 20:00] VITALS: BP 108/71
[2018-09-30 04:00] VITALS: BP 117/73
[2018-09-30 04:30] LABS: BASOPHILS 0.4 % (0-2); EOSINOPHILS 11.1 % (0-7); HEMATOCRIT 30.6 % (42.0-54.0); HEMOGLOBIN 10.1 g/dL (13.5-17.5); IMMATURE GRANULOCYTES 0.4 % (0-5); LYMPHOCYTES 26.3 % (15-50); MCH 26.8 pg (26.0-34.0); MCV 81.2 fL (80.0-100.0); MEAN PLATELET VOLUME 8.4 fL (7.4-10.4); MONOCYTES 8.6 % (2-11); NEUTROPHILS 53.2 % (40-80); PLATELET COUNT 249 10x3/uL (130-400); RBC 3.77 10x6/uL (4.20-6.10); RDW 13.4 % (11.5-14.5); WBC 4.5 10x3/uL (4.8-10.8)
[2018-09-30 04:51] LABS: ALBUMIN 2.3 g/dL (3.4-5.0); ALKALINE PHOSPHATASE 70 U/L (46-116); ALT (SGPT) 21 U/L (10-68); BILIRUBIN - TOTAL 0.22 mg/dL (0.2-1.3); CALC OSMOLALITY 274 mosm/kg (275-300); CALCIUM 7.8 mg/dL (8.5-10.1); CARBON DIOXIDE 25.1 mmol/L (21.0-32.0); CHLORIDE - SERUM 104 mmol/L (98-107); CREATININE - SERUM 0.7 mg/dL (0.6-1.3); GLUCOSE 84 mg/dL (74-106); POTASSIUM - SERUM 3.5 mmol/L (3.5-5.1); PROTEIN - SERUM 5.8 g/dL (6.4-8.2); SODIUM 139 mmol/L (136-145); UREA NITROGEN 7 mg/dL (7-18); eGFR NON AFRICAN AMERICAN > 90 mL/min (90-120)
[2018-09-30 08:45] VITALS: BP 103/71
[2018-09-30 12:59] VITALS: BP 117/75
[2018-09-30 15:29] VITALS: BP 131/82
[2018-09-30 17:45] VITALS: BP 132/75
[2018-09-30 23:35] VITALS: BP 118/76
[2018-10-01 03:00] VITALS: BP 145/71
[2018-10-01 06:19] LABS: BASOPHILS 0.9 % (0-2); HEMATOCRIT 30.3 % (42.0-54.0); HEMOGLOBIN 10.1 g/dL (13.5-17.5); LYMPHOCYTES 16.6 % (15-50); MCH 26.6 pg (26.0-34.0); MCHC 33.3 g/dL (31.0-37.0); MCV 79.7 fL (80.0-100.0); MEAN PLATELET VOLUME 8.4 fL (7.4-10.4); MONOCYTES 8.4 % (2-11); NEUTROPHILS 65.1 % (40-80); PLATELET COUNT 261 10x3/uL (130-400); RDW 13.3 % (11.5-14.5); WBC 4.7 10x3/uL (4.8-10.8)
[2018-10-01 06:47] LABS: ALBUMIN 2.3 g/dL (3.4-5.0); ALKALINE PHOSPHATASE 70 U/L (46-116); ALT (SGPT) 16 U/L (10-68); CALC OSMOLALITY 278 mosm/kg (275-300); CALCIUM 7.9 mg/dL (8.5-10.1); CARBON DIOXIDE 24.2 mmol/L (21.0-32.0); CHLORIDE - SERUM 105 mmol/L (98-107); CREATININE - SERUM 0.7 mg/dL (0.6-1.3); GLUCOSE 94 mg/dL (74-106); POTASSIUM - SERUM 3.7 mmol/L (3.5-5.1); SODIUM 141 mmol/L (136-145); UREA NITROGEN 6 mg/dL (7-18); eGFR NON AFRICAN AMERICAN > 90 mL/min (90-120)
--- NOTE | 2018-10-01 08:29 | NUR ---
PT ALERT X 4. BREATH SOUNDS CLEAR BILAT. IV TO RIGHT HAND, PATENT, DRESSING CLEAN DRY AND INTACT. PT REPORTING NAUSEA, ZOFRAN DRIP IN PLACE. BED LOW, CALL LIGHT IN REACH. NO OTHER NEEDS AT THIS TIME.
[2018-10-01 10:59] VITALS: BP 120/66
[2018-10-01 13:40] VITALS: BP 118/78
[2018-10-01 16:59] VITALS: BP 119/76
[2018-10-01 20:36] VITALS: BP 127/83
[2018-10-01 23:55] VITALS: BP 118/64
[2018-10-02 04:20] VITALS: BP 119/69
[2018-10-02 06:43] LABS: BASOPHILS 0.6 % (0-2); EOSINOPHILS 9.5 % (0-7); HEMATOCRIT 31.2 % (42.0-54.0); HEMOGLOBIN 10.4 g/dL (13.5-17.5); IMMATURE GRANULOCYTES 0.6 % (0-5); MCH 26.8 pg (26.0-34.0); MCHC 33.3 g/dL (31.0-37.0); MCV 80.4 fL (80.0-100.0); MEAN PLATELET VOLUME 8.2 fL (7.4-10.4); MONOCYTES 8.7 % (2-11); NEUTROPHILS 58.6 % (40-80); PLATELET COUNT 268 10x3/uL (130-400); RBC 3.88 10x6/uL (4.20-6.10); RDW 13.3 % (11.5-14.5); WBC 5.3 10x3/uL (4.8-10.8)
[2018-10-02 07:24] LABS: ALBUMIN 2.4 g/dL (3.4-5.0); ALKALINE PHOSPHATASE 80 U/L (46-116); ALT (SGPT) 13 U/L (10-68); BILIRUBIN - TOTAL 0.32 mg/dL (0.2-1.3); CALC OSMOLALITY 279 mosm/kg (275-300); CALCIUM 8.5 mg/dL (8.5-10.1); CARBON DIOXIDE 24.4 mmol/L (21.0-32.0); CHLORIDE - SERUM 106 mmol/L (98-107); CREATININE - SERUM 0.8 mg/dL (0.6-1.3); GLUCOSE 98 mg/dL (74-106); POTASSIUM - SERUM 3.8 mmol/L (3.5-5.1); PROTEIN - SERUM 6.3 g/dL (6.4-8.2); SODIUM 142 mmol/L (136-145); UREA NITROGEN 5 mg/dL (7-18); eGFR NON AFRICAN AMERICAN > 90 mL/min (90-120)
--- NOTE | 2018-10-02 08:07 | NUR ---
PT ALERT X 4. BREATH SOUNDS CLEAR BILAT. IV TO RIGHT HAND, PATENT, DRESSING CLEAN DRY AND INTACT. PT RATING PAIN 3/10, WILL MONITOR. NAUSEA IS "NOT TOO BAD". NO BM'S THIS MORNING. BED LOW, CALL LIGHT IN REACH. NO OTHER NEEDS AT THIS TIME.
[2018-10-02 08:59] VITALS: BP 120/73
[2018-10-02 13:09] VITALS: BP 119/81
[2018-10-02 16:47] VITALS: BP 132/78
[2018-10-02 20:00] VITALS: BP 129/77
[2018-10-03] VITALS: BP 131/78
[2018-10-03 03:00] VITALS: BP 113/73
[2018-10-03 06:00] LABS: EOSINOPHILS 7.8 % (0-7); HEMATOCRIT 29.6 % (42.0-54.0); HEMOGLOBIN 9.9 g/dL (13.5-17.5); IMMATURE GRANULOCYTES 0.8 % (0-5); MCH 26.7 pg (26.0-34.0); MCHC 33.4 g/dL (31.0-37.0); MCV 79.8 fL (80.0-100.0); MEAN PLATELET VOLUME 8.3 fL (7.4-10.4); MONOCYTES 9.2 % (2-11); NEUTROPHILS 57.2 % (40-80); PLATELET COUNT 297 10x3/uL (130-400); RBC 3.71 10x6/uL (4.20-6.10); RDW 13.2 % (11.5-14.5); WBC 5.1 10x3/uL (4.8-10.8)
[2018-10-03 06:23] LABS: ALBUMIN 2.4 g/dL (3.4-5.0); ALKALINE PHOSPHATASE 72 U/L (46-116); ALT (SGPT) 15 U/L (10-68); BILIRUBIN - TOTAL 0.38 mg/dL (0.2-1.3); CALCIUM 8.4 mg/dL (8.5-10.1); CARBON DIOXIDE 24.1 mmol/L (21.0-32.0); CHLORIDE - SERUM 105 mmol/L (98-107); CREATININE - SERUM 0.7 mg/dL (0.6-1.3); GLUCOSE 92 mg/dL (74-106); POTASSIUM - SERUM 3.6 mmol/L (3.5-5.1); PROTEIN - SERUM 6.3 g/dL (6.4-8.2); SODIUM 140 mmol/L (136-145); eGFR NON AFRICAN AMERICAN > 90 mL/min (90-120)
[2018-10-03 06:25] LABS: CALC OSMOLALITY 275 mosm/kg (275-300); UREA NITROGEN 3 mg/dL (7-18)
--- NOTE | 2018-10-03 07:30 | NUR ---
MORNING ASSESSMENT COMPLETE. SEE ASSESSMENT FLOWSHEET FOR FURTHER DETAILS. PT LYING IN BED AAO X4 TO PERSON, PLACE, TIME, AND SITUATION. DENIES NEEDS AT THIS TIME. CL IN REACH. SIDE RAILS UP X3 FOR PATIENT SAEFTY.
[2018-10-03 08:44] VITALS: BP 130/78
[2018-10-03 12:38] VITALS: BP 129/75
[2018-10-03 17:17] VITALS: BP 110/72
[2018-10-03 21:16] VITALS: BP 115/72
--- NOTE | 2018-10-04 04:00 | NUR ---
I have reviewed this patient and I concur with the Shift Assessment completed by the Licensed Practical Nurse today this shift.
[2018-10-04 04:37] LABS: BASOPHILS 0.7 % (0-2); EOSINOPHILS 6.9 % (0-7); HEMATOCRIT 31.6 % (42.0-54.0); HEMOGLOBIN 10.7 g/dL (13.5-17.5); IMMATURE GRANULOCYTES 0.9 % (0-5); LYMPHOCYTES 30.8 % (15-50); MCH 27.1 pg (26.0-34.0); MCHC 33.9 g/dL (31.0-37.0); MEAN PLATELET VOLUME 8.4 fL (7.4-10.4); MONOCYTES 8.9 % (2-11); NEUTROPHILS 51.8 % (40-80); PLATELET COUNT 305 10x3/uL (130-400); RBC 3.95 10x6/uL (4.20-6.10); RDW 13.2 % (11.5-14.5); WBC 5.6 10x3/uL (4.8-10.8)
[2018-10-04 04:55] LABS: ALBUMIN 2.6 g/dL (3.4-5.0); ALKALINE PHOSPHATASE 71 U/L (46-116); CALCIUM 8.6 mg/dL (8.5-10.1); CARBON DIOXIDE 27.1 mmol/L (21.0-32.0); CHLORIDE - SERUM 103 mmol/L (98-107); CREATININE - SERUM 0.8 mg/dL (0.6-1.3); GLUCOSE 87 mg/dL (74-106); POTASSIUM - SERUM 3.6 mmol/L (3.5-5.1); PROTEIN - SERUM 6.5 g/dL (6.4-8.2); SODIUM 139 mmol/L (136-145); eGFR NON AFRICAN AMERICAN > 90 mL/min (90-120)
[2018-10-04 04:57] LABS: ALT (SGPT) 19 U/L (10-68); CALC OSMOLALITY 273 mosm/kg (275-300); UREA NITROGEN 5 mg/dL (7-18)
[2018-10-04 05:49] VITALS: BP 117/70
--- NOTE | 2018-10-04 07:30 | NUR ---
REC'D IN BED AWAKE AND ALERT. RESP EVEN AND UNLABORED WITH NO DISTRESS NOTED. CAN EXPRESS NEEDS AND WANTS. DENIES ANY PAIN OR DISCOMFORT NOTED AT THIS TIME. ASSESSMENT COMPLETED. C/L IN REACH AT BEDSIDE.
[2018-10-04 08:27] LABS: FUNGUS MYCOLOGY CULTURE Preliminary report (())
[2018-10-04 09:46] VITALS: BP 104/62
--- NOTE | 2018-10-04 14:43 | MORECARE ---
CASE MANAGEMENT DISCHARGE SUMMARY PATIENT: MARCELLUS EDWARDS UNIT: [id number] ADM DATE: 09/26/18 AGE: 58 : 64 SEX: M ROOM/BED: D.2204 AUTHOR: DIMITRIOS,DOC PHYSICIAN: REFERRING PHYSICIAN: JINA MCCAIN MD DATE OF SERVICE: 10/04/18 Discharge Plan Patient Name: MARCELLUS EDWARDS Facility: [facility]:[place] : 1960 Planned Disposition: Home or Self Care Anticipated Discharge Date: Discharge Date: Expected LOS: Initial Reviewer: [email or web address] Initial Review Date: 09/26/2018 Generated: 10/04/18 3:43 pm Comments DCP- Discharge Planning Updated by [email or web address]: Kathleen Monte on 09/29/18 9:[address] Patient Name: MARCELLUS EDWARDS Admission Status: ER Accout number: [id number] Admission Date: 09-26-2018 : 1960 Admission Diagnosis:ABSCESS OF LIVER Attending: JINA MCCAIN Current LOS: 3 Anticipated DC Date: Planned Disposition: Home or Self Care Primary Insurance: [employer] Discharge Planning Comments: CM met with patient to complete initial dc planning assessment. CM educated patient on the CM role and verbal consent given by patient to complete assessment. Patient lives at home where he is independent with his care. At discharge patient plans to return home and feels this is a safe discharge. 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 CM discussed availability of home health, rehab services, and medical equipment. He has had home health in the past, but not current with any company. Patient denied known discharge needs at this time. He has mason nebulizer and home O2 . CM will continue to follow and will assist as needed with dc plans/needs. Industrial Maintenance Manager: Kathleen Monte DCPIA - Discharge Planning Initial Assessment Updated by [email or web address]: Kathleen Monte on 09/29/18 11:11 am * Is the patient Alert and Oriented? Yes * How many steps to enter\exit or inside your home? * PCP KHOI * Pharmacy [facility] ON [address] * Preadmission Environment Home Alone * ADLs Independent * Equipment Nebulizer Oxygen * List name and contact numbers for known caregivers / representatives who currently or will assist patient after discharge: MAGALY LEMOS (GIRLFRIEND) [phone] * Verbal permission to speak to the caregivers and representatives has been obtained from the patient. Yes * Community resources currently utilized None * Additional services required to return to the preadmission environment? No * Can the patient safely return to the preadmission environment? Yes * Has this patient been hospitalized within the prior 30 days at any hospital? Yes External Providers External Provider: [facility] Next Contact Date: Service Request Date: Service Type: Resolution: Reviewer: Comments: Last DP export: 09/29/18 9:17 am Patient Name: MARCELLUS EDWARDS Page 13596 at 1443 All edits/amendments must be made on the electronic document DICTATION DATE: 10/04/181441 PILL MAKER: GIOVANNA 10/04/181441 RPT#: [id number] DC DATE: STATUS: ADM IN [facility] [address] [place] [address] END OF REPORT
--- NOTE | 2018-10-04 14:51 | MORECARE ---
CASE MANAGEMENT DISCHARGE SUMMARY PATIENT: MARCELLUS EDWARDS UNIT: [id number] ADM DATE: 09/26/18 AGE: 58 : 64 SEX: M ROOM/BED: D.2204 AUTHOR: DIMITRIOS,DOC PHYSICIAN: REFERRING PHYSICIAN: JINA MCCAIN MD DATE OF SERVICE: 10/04/18 Discharge Plan Patient Name: MARCELLUS EDWARDS Facility: [facility]:[place] : 1960 Planned Disposition: Home or Self Care Anticipated Discharge Date: Discharge Date: Expected LOS: Initial Reviewer: [email or web address] Initial Review Date: 09/26/2018 Generated: 10/04/18 3:51 pm Comments DCP- Discharge Planning Updated by [email or web address]: Kathleen Monte on 09/29/18 9:[address] Patient Name: MARCELLUS EDWARDS Admission Status: ER Accout number: [id number] Admission Date: 09-26-2018 : 1960 Admission Diagnosis:ABSCESS OF LIVER Attending: JINA MCCAIN Current LOS: 3 Anticipated DC Date: Planned Disposition: Home or Self Care Primary Insurance: [employer] Discharge Planning Comments: CM met with patient to complete initial dc planning assessment. CM educated patient on the CM role and verbal consent given by patient to complete assessment. Patient lives at home where he is independent with his care. At discharge patient plans to return home and feels this is a safe discharge. 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 CM discussed availability of home health, rehab services, and medical equipment. He has had home health in the past, but not current with any company. Patient denied known discharge needs at this time. He has mason nebulizer and home O2 . CM will continue to follow and will assist as needed with dc plans/needs. General Inspector: Kathleen Monte DCPIA - Discharge Planning Initial Assessment Updated by [email or web address]: Kathleen Monte on 09/29/18 11:11 am * Is the patient Alert and Oriented? Yes * How many steps to enter\exit or inside your home? * PCP KHOI * Pharmacy [facility] ON [address] * Preadmission Environment Home Alone * ADLs Independent * Equipment Nebulizer Oxygen * List name and contact numbers for known caregivers / representatives who currently or will assist patient after discharge: MAGALY LEMOS (GIRLFRIEND) [phone] * Verbal permission to speak to the caregivers and representatives has been obtained from the patient. Yes * Community resources currently utilized None * Additional services required to return to the preadmission environment? No * Can the patient safely return to the preadmission environment? Yes * Has this patient been hospitalized within the prior 30 days at any hospital? Yes External Providers [facility] Next Contact Date: Service Request Date: Service Type: Resolution: Reviewer: Comments: Last DP export: 10/04/18 1:43 p Patient Name: MARCELLUS EDWARDS Page [phone] at 1451 All edits/amendments must be made on the electronic document DICTATION DATE: 10/04/181449 FINISHING WIRE SAWYER: GIOVANNA 10/04/181449 RPT#: [id number] DC DATE: STATUS: ADM IN [facility] [address] [place] [address] END OF REPORT
[2018-10-04 15:10] VITALS: BP 116/71
--- NOTE | 2018-10-04 15:31 | MORECARE ---
CASE MANAGEMENT DISCHARGE SUMMARY PATIENT: MARCELLUS EDWARDS UNIT: [id number] ADM DATE: 09/26/18 AGE: 58 : 64 SEX: M ROOM/BED: D.2204 AUTHOR: DIMITRIOS,DOC PHYSICIAN: REFERRING PHYSICIAN: JINA MCCAIN MD DATE OF SERVICE: 10/04/18 Discharge Plan Patient Name: MARCELLUS EDWARDS Facility: [facility]:[place] : 1960 Planned Disposition: Home or Self Care Anticipated Discharge Date: Discharge Date: Expected LOS: Initial Reviewer: [email or web address] Initial Review Date: 09/26/2018 Generated: 10/04/18 4:31 pm Comments DCP- Discharge Planning Updated by [email or web address]: Kathleen Monte on 10/04/18 2:[address] Patient will need home health and IV abx, SNEHA with [facility] both have been notified DCP- Discharge Planning Updated by [email or web address]: Kathleen Monte on 09/29/18 9:[address] Patient Name: MARCELLUS EDWARDS Admission Status: ER Accout number: [id number] Admission Date: 09-26-2018 : 1960 Admission Diagnosis:ABSCESS OF LIVER Attending: JINA MCCAIN Current LOS: 3 Anticipated DC Date: Planned Disposition: Home or Self Care [facility] Discharge Planning Comments: CM met with patient to complete initial dc planning assessment. CM educated patient on the CM role and verbal consent given by patient to complete assessment. Patient lives at home where he is independent with his care. At discharge patient plans to return home and feels this is a safe discharge. 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 CM discussed availability of home health, rehab services, and medical equipment. He has had home health in the past, but not current with any company. Patient denied known discharge needs at this time. He has mason nebulizer and home O2 . CM will continue to follow and will assist as needed with dc plans/needs. Chemical Pathologist: Kathleen Monte DCPIA - Discharge Planning Initial Assessment Updated by [email or web address]: Kathleen Monte on 09/29/18 11:11 am * Is the patient Alert and Oriented? Yes * How many steps to enter\exit or inside your home? * PCP KHOI * Pharmacy [facility] [address] * Preadmission Environment Home Alone * ADLs Independent * Equipment Nebulizer Oxygen * List name and contact numbers for known caregivers / representatives who currently or will assist patient after discharge: MAGALY LEMOS (GIRLFRIEND) [phone] * Verbal permission to speak to the caregivers and representatives has been obtained from the patient. Yes * Community resources currently utilized None * Additional services required to return to the preadmission environment? No * Can the patient safely return to the preadmission environment? Yes * Has this patient been hospitalized within the prior 30 days at any hospital? Yes Last DP export: 10/04/18 1:51 p Patient Name: MARCELLUS EDWARDS Page [phone] at 1531 All edits/amendments must be made on the electronic document DICTATION DATE: 10/04/18 153 WASHHOUSE WORKER: GIOVANNA 10/04/18 153 RPT#: [id number] DC DATE: STATUS: ADM IN [facility] [address] [place] [address] END OF REPORT
--- NOTE | 2018-10-04 15:51 | MORECARE ---
CASE MANAGEMENT DISCHARGE SUMMARY PATIENT: MARCELLUS EDWARDS UNIT: [id number] ADM DATE: 09/26/18 AGE: 58 : 64 SEX: M ROOM/BED: D.2204 AUTHOR: YUDY PLUNKETT PHYSICIAN: REFERRING PHYSICIAN: JINA MCCAIN MD DATE OF SERVICE: 10/04/18 Discharge Plan Patient Name: MARCELLUS EDWARDS Facility: [facility]:[place] : 1960 Planned Disposition: Home or Self Care Anticipated Discharge Date: Discharge Date: Expected LOS: Initial Reviewer: [email or web address] Initial Review Date: 09/26/2018 Generated: 10/04/18 4:50 pm Comments DCP- Discharge Planning Updated by [email or web address]: Kathleen Monte on 10/04/18 2:[address] I called [facility] for a macdonald on Oral Vanc. I spoke with Jon, 62.00 for 250 mg qid x 3 weeks for them to compound the medication if commercial it would be 218.32 Patient would like the cheaper macdonald. Prescription called into [facility] also notified DCP- Discharge Planning Updated by [email or web address]: Kathleen Monte on 10/04/18 2:[address] Patient will need home health and IV abx, [facility] with [facility] and [place] both have been notified DCP- Discharge Planning Updated by [email or web address]: Kathleen Monte on 09/29/18 9:[address] Patient Name: MARCELLUS EDWARDS Admission Status: ER Accout number: [id number] Admission Date: 09-26-2018 : 1960 Admission Diagnosis:ABSCESS OF LIVER Attending: JINA MCCAIN Current LOS: 3 Anticipated DC Date: Planned Disposition: Home or Self Care Primary Insurance: [facility] Discharge Planning Comments: CM met with patient to complete initial dc planning assessment. CM educated patient on the CM role and verbal consent given by patient to complete assessment. Patient lives at home where he is independent with his care. At discharge patient plans to return home and feels this is a safe discharge. 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 CM discussed availability of home health, rehab services, and medical equipment. He has had home health in the past, but not current with any company. Patient denied known discharge needs at this time. He has mason nebulizer and home O2 . CM will continue to follow and will assist as needed with dc plans/needs. Housing Quality Standard Inspector: Kathleen Monte DCPIA - Discharge Planning Initial Assessment Updated by [email or web address]: Kathleen Monte on 09/29/18 11:11 am * Is the patient Alert and Oriented? Yes * How many steps to enter\exit or inside your home? * PCP KHOI * Pharmacy [facility] [address] * Preadmission Environment Home Alone * ADLs Independent * Equipment Nebulizer Oxygen * List name and contact numbers for known caregivers / representatives who currently or will assist patient after discharge: MAGALY LEMOS (GIRLFRIEND) [phone] * Verbal permission to speak to the caregivers and representatives has been obtained from the patient. Yes * Community resources currently utilized None * Additional services required to return to the preadmission environment? No * Can the patient safely return to the preadmission environment? Yes * Has this patient been hospitalized within the prior 30 days at any hospital? Yes Last DP export: 10/04/18 2:31 p Patient Name: MARCELLUS EDWARDS Page [id number] at 1551 All edits/amendments must be made on the electronic document DICTATION DATE: 10/04/181549 EVENTS MANAGER: GIOVANNA 10/04/181549 RPT#: [id number] DC DATE: STATUS: ADM IN [facility] [address] [place] [address] END OF REPORT
--- NOTE | 2018-10-04 16:47 | NUR ---
I have reviewed this patient and I concur with the Shift Assessment completed by the Licensed Practical Nurse today this shift.
[2018-10-04 17:24] VITALS: BP 120/76
[2018-10-04 19:10] LABS: OVA + PARASITE EXAM Final report (())
[2018-10-04 21:37] VITALS: BP 115/71
--- NOTE | 2018-10-05 01:15 | NUR ---
REC'D. AT CHGE OF SHIFT UP AND ABOUT IN ROOM. VISITOR AT BEDSIDE DENIES ANY DISCOMFORT AT PRESENT TIME WILL CONTINUE TO MONITOR FOR ANY CHGES. AND FOLLOW CURRENT PLAN OF CARE.
[2018-10-05 01:33] VITALS: BP 124/74
[2018-10-05 04:16] LABS: BASOPHILS 0.6 % (0-2); EOSINOPHILS 7.5 % (0-7); HEMATOCRIT 32.4 % (42.0-54.0); HEMOGLOBIN 10.9 g/dL (13.5-17.5); IMMATURE GRANULOCYTES 1.2 % (0-5); MCHC 33.6 g/dL (31.0-37.0); MCV 80.4 fL (80.0-100.0); MEAN PLATELET VOLUME 8.4 fL (7.4-10.4); MONOCYTES 7.6 % (2-11); NEUTROPHILS 56.1 % (40-80); PLATELET COUNT 356 10x3/uL (130-400); RBC 4.03 10x6/uL (4.20-6.10); RDW 13.6 % (11.5-14.5); WBC 6.4 10x3/uL (4.8-10.8)
[2018-10-05 04:30] LABS: ALBUMIN 2.6 g/dL (3.4-5.0); ALKALINE PHOSPHATASE 75 U/L (46-116); ALT (SGPT) 18 U/L (10-68); BILIRUBIN - TOTAL 0.33 mg/dL (0.2-1.3); CALC OSMOLALITY 274 mosm/kg (275-300); CALCIUM 8.6 mg/dL (8.5-10.1); CHLORIDE - SERUM 100 mmol/L (98-107); CREATININE - SERUM 0.8 mg/dL (0.6-1.3); GLUCOSE 94 mg/dL (74-106); POTASSIUM - SERUM 3.6 mmol/L (3.5-5.1); PROTEIN - SERUM 6.7 g/dL (6.4-8.2); SODIUM 139 mmol/L (136-145); UREA NITROGEN 5 mg/dL (7-18); eGFR NON AFRICAN AMERICAN > 90 mL/min (90-120)
--- NOTE | 2018-10-05 04:47 | NUR ---
I have reviewed this patient and I concur with the Shift Assessment completed by the Licensed Practical Nurse today this shift.
[2018-10-05 04:48] VITALS: BP 109/71
--- NOTE | 2018-10-05 07:30 | NUR ---
REC'D IN BED AWAKE AND ALERT. RESP EVEN AND UNLABORED WITH NO DISTRESS NOTED. CAN EXPRESS NEEDS AND WANTS. NO C/O NOTED OR VOICED. DENIES ANY PAIN OR DISCOMFORT. ASSESSMENT COMPLETED. C/L IN REACH AT BEDSIDE.
[2018-10-05 08:45] VITALS: BP 107/62
--- NOTE | 2018-10-05 09:45 | NUR ---
WAS MEDICATED WITH [facility] PER REQUEST FOR ANXIETY. C/L IN REACH AT BEDSIDE.
[2018-10-05] MEDS ORDERED: ZOFRAN4 MG PO (09:53)
--- NOTE | 2018-10-05 11:19 | MORECARE ---
CASE MANAGEMENT DISCHARGE SUMMARY PATIENT: MARCELLUS EDWARDS UNIT: [id number] ADM DATE: 09/26/18 AGE: 58 : 64 SEX: M ROOM/BED: D.2204 AUTHOR: YUDY PLUNKETT PHYSICIAN: REFERRING PHYSICIAN: JINA MCCAIN MD DATE OF SERVICE: 10/05/18 Discharge Plan Patient Name: MARCELULS EDWARDS Facility: [facility]:[place] : 1960 Planned Disposition: Home or Self Care Anticipated Discharge Date: Discharge Date: Expected LOS: Initial Reviewer: [email or web address] Initial Review Date: 09/26/2018 Generated: 10/05/18 12:19 pm Comments DCP- Discharge Planning Updated by [email or web address]: Kathleen Monte on 10/05/18 10:[address] Patient will be discharging home today with [facility] home health. IMM served and explained. Mitchell Suazo will be coming up to the hospital at 1400 to teach and deliver medication. 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 CM will continue to follow and assist with DC planning DCP- Discharge Planning Updated by [email or web address]: Kathleen Monte on 10/04/18 2:[address] I called [facility] for a macdonald on Oral Vanc. I spoke with Jon, 62.00 for 250 mg qid x 3 weeks for them to compound the medication if commercial it would be 218.32 Patient would like the cheaper macdonald. Prescription called into [facility] also notified DCP- Discharge Planning Updated by [id number]: Kathleen Monte on 10/04/18 2:[address] Patient will need home health and IV abx, SNEHA with [facility] both have been notified DCP- Discharge Planning Updated by [email or web address]: Kathleen Monte on 09/29/18 9:[address] Patient Name: MARCELLUS EDWARDS Admission Status: ER Accout number: [id number] Admission Date: 09-26-2018 : 1960 Admission Diagnosis:ABSCESS OF LIVER Attending: JINA MCCAIN Current LOS: 3 Anticipated DC Date: Planned Disposition: Home or Self Care Primary Insurance: [employer] Discharge Planning Comments: CM met with patient to complete initial dc planning assessment. CM educated patient on the CM role and verbal consent given by patient to complete assessment. Patient lives at home where he is independent with his care. At discharge patient plans to return home and feels this is a safe discharge. 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 CM discussed availability of home health, rehab services, and medical equipment. He has had home health in the past, but not current with any company. Patient denied known discharge needs at this time. He has mason nebulizer and home O2 . CM will continue to follow and will assist as needed with dc plans/needs. Rpg Programmer: Kathleen Monte DCPIA - Discharge Planning Initial Assessment Updated by [email or web address]: Kathleen Monte on 09/29/18 11:11 am * Is the patient Alert and Oriented? Yes * How many steps to enter\exit or inside your home? * PCP KHOI * Pharmacy [facility] [address] * Preadmission Environment Home Alone * ADLs Independent * Equipment Nebulizer Oxygen * List name and contact numbers for known caregivers / representatives who currently or will assist patient after discharge: MAGALY LEMOS (GIRLFRIEND) [phone] * Verbal permission to speak to the caregivers and representatives has been obtained from the patient. Yes * Community resources currently utilized None * Additional services required to return to the preadmission environment? No * Can the patient safely return to the preadmission environment? Yes * Has this patient been hospitalized within the prior 30 days at any hospital? Yes Coverage Notice Reviewer: [email or web address] - Kathleen Monte Notice Issued Date-Time: 10/05/2018 11:15 Notice Type: IM Discharge Notice Notice Delivered To: Patient Relationship to Patient: Manager Critical Care Name: Delivery Method: HAND - Hand Delivered Elvira Days: Prior Verbal Notification: Recipient Understood Notice: Yes Recipient Signature: Yes Med Rec Note Co-signed by Attending: Coverage Notice Comment: Last DP export: 10/04/18 2:50 p Patient Name: MARCELLUS EDWARDS Page [id number] at 1119 All edits/amendments must be made on the electronic document DICTATION DATE: 10/05/18 1119 MINE MOTOR ENGINEER: GIOVANNA 10/05/18 1119 RPT#: [id number] DC DATE: STATUS: ADM IN [facility] [address] [facility] [place] [address] END OF REPORT
[2018-10-05 12:40] VITALS: BP 107/66
--- NOTE | 2018-10-05 13:36 | MORECARE ---
CASE MANAGEMENT DISCHARGE SUMMARY PATIENT: MARCELLUS EDWARDS UNIT: [id number] ADM DATE: 09/26/18 AGE: 58 : 64 SEX: M ROOM/BED: D.2204 AUTHOR: DIMITRIOS,DOC PHYSICIAN: REFERRING PHYSICIAN: JINA MCCAIN MD DATE OF SERVICE: 10/05/18 Discharge Plan Patient Name: MARCELLUS EDWARDS Facility: [facility]:[place] : 1960 Planned Disposition: Home or Self Care Anticipated Discharge Date: Discharge Date: Expected LOS: Initial Reviewer: [email or web address] Initial Review Date: 09/26/2018 Generated: 10/05/18 2:36 pm Comments DCP- Discharge Planning Updated by [email or web address]: Kathleen Monte on 10/05/18 12:[address] Patient will need a preauth for his Zofran. I called and started the PA for the Zofran I spoke with Ofe ref # [id number] she stated that it could take 24hours to get approved and I would receive a fax and the patient would receive a phone call and a letter. PA number - [phone] after hours number [phone] this is for Zofran 4mg #[id number] Pandya is the ordering MD DCP- Discharge Planning Updated by [email or web address]: Kathleen Monte on 10/05/18 10:[address] Patient will be discharging home today with [facility]. IMM served and explained. [facility] will be coming up to the hospital at 1400 to teach and deliver medication. 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 CM will continue to follow and assist with DC planning DCP- Discharge Planning Updated by [email or web address]: Kathleen Monte on 10/04/18 2:[address] I called [facility] for a macdonald on Oral Vanc. I spoke with Jon, 62.00 for 250 mg qid x 3 weeks for them to compound the medication if commercial it would be 218.32 Patient would like the cheaper macdonald. Prescription called into [facility] also notified DCP- Discharge Planning Updated by [email or web address]: Kathleen Monte on 10/04/18 2:[address] Patient will need home health and IV abx, [facility] with [facility] both have been notified DCP- Discharge Planning Updated by [email or web address]: Kathleen Monte on 09/29/18 9:[address] Patient Name: MARCELLUS EDWARDS Admission Status: ER Accout number: [id number] Admission Date: 09-26-2018 : 1960 Admission Diagnosis:ABSCESS OF LIVER Attending: JINA MCCAIN Current LOS: 3 Anticipated DC Date: Planned Disposition: Home or Self Care Primary Insurance: [employer] Discharge Planning Comments: CM met with patient to complete initial dc planning assessment. CM educated patient on the CM role and verbal consent given by patient to complete assessment. Patient lives at home where he is independent with his care. At discharge patient plans to return home and feels this is a safe discharge. 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 CM discussed availability of home health, rehab services, and medical equipment. He has had home health in the past, but not current with any company. Patient denied known discharge needs at this time. He has mason nebulizer and home O2 . CM will continue to follow and will assist as needed with dc plans/needs. Maintainer [employer]: Kathleen Monte DCPIA - Discharge Planning Initial Assessment Updated by [email or web address]: Kathleen Monte on 09/29/18 11:11 am * Is the patient Alert and Oriented? Yes * How many steps to enter\exit or inside your home? * PCP KHOI * Pharmacy [facility] [address] * Preadmission Environment Home Alone * ADLs Independent * Equipment Nebulizer Oxygen * List name and contact numbers for known caregivers / representatives who currently or will assist patient after discharge: MAGALY LEMOS (GIRLFRIEND) [phone] * Verbal permission to speak to the caregivers and representatives has been obtained from the patient. Yes * Community resources currently utilized None * Additional services required to return to the preadmission environment? No * Can the patient safely return to the preadmission environment? Yes * Has this patient been hospitalized within the prior 30 days at any hospital? Yes Coverage Notice Reviewer: [email or web address] - Kathleen Monte Notice Issued Date-Time: 10/05/2018 11:15 Notice Type: IM Discharge Notice Notice Delivered To: Patient Relationship to Patient: Chef Assistant Name: Delivery Method: HAND - Hand Delivered Elvira Days: Prior Verbal Notification: Recipient Understood Notice: Yes Recipient Signature: Yes Med Rec Note Co-signed by Attending: Coverage Notice Comment: Last DP export: 10/05/18 10:19 a Patient Name: MARCELLUS EDWARDS Page [id number] at 1336 All edits/amendments must be made on the electronic document DICTATION DATE: 10/05/181335 CHEMICAL WASTE MANAGEMENT TECHNICIAN: GIOVANNA 10/05/181335 RPT#: [id number] DC DATE: STATUS: ADM IN [facility] [address] [place] [address] END OF REPORT
[2018-10-05] MEDS ORDERED: VANCOCIN HCL250 MG PO (13:54)
--- NOTE | 2018-10-05 15:19 | NUR ---
DC HOME AT THIS TIME VOICE UNDERSTANDING OF DC INSTUCTION. PICC LINE REMAIN IN PLACE FOR ABTX THERAPY. STABLE CONDDITION UPON DEPARTURE.
== END 2018-10-05 15:20 | disposition home health service (06) | DRG 442 ==
LOC: D.ER 17:28 → D.EDHOLD 20:50 → D.MS 20:50
PROVIDERS: Emergency Medicine; Family Medicine; Radiology Vascular & Interventional Radiology; ADMIT Emergency Medicine; ATTEND Emergency Medicine
PROC: 0F903ZX Drainage of Liver, Percutaneous Approach, Diagnostic (ICD-10-PCS; principal; 2018-09-26)
PROC: 05HY33Z Insertion of Infusion Device into Upper Vein, Percutaneous Approach (ICD-10-PCS; 2018-10-04)
DX: K75.0 Abscess of liver (principal); J96.11 Chronic respiratory failure with hypoxia; I10 Essential (primary) hypertension; I25.10 Atherosclerotic heart disease of native coronary artery without angina pectoris; J44.9 Chronic obstructive pulmonary disease, unspecified; K22.70 Barrett's esophagus without dysplasia; F32.9 Major depressive disorder, single episode, unspecified

== ENCOUNTER → 2018-10-10 17:58 | Outpatient (CLI) | payer OTHER ==
[2018-09-28 19:24] VITALS: BMI 31.5
[~2018-10-10 17:58] MED LIST changes: +KLONOPIN0.5 MG PO; +VANCOCIN HCL250 MG PO; +ZOFRAN4 MG PO
[2018-10-10 18:43] LABS: HEMATOCRIT 35.1 % (42.0-54.0); HEMOGLOBIN 11.8 g/dL (13.5-17.5); MCH 27.3 pg (26.0-34.0); MCHC 33.6 g/dL (31.0-37.0); MCV 81.3 fL (80.0-100.0); MEAN PLATELET VOLUME 8.6 fL (7.4-10.4); RBC 4.32 10x6/uL (4.20-6.10); RDW 14.3 % (11.5-14.5); WBC 7.4 10x3/uL (4.8-10.8)
[2018-10-10 18:44] LABS: PLATELET COUNT 445 10x3/uL (130-400)
[2018-10-10 18:56] LABS: CREATININE - SERUM 0.8 mg/dL (0.6-1.3)
[2018-10-10 19:27] LABS: BASOPHILS 2 % (0-2); EOSINOPHILS 5 % (0-7); LYMPHOCYTES 24 % (15-50); MONOCYTES 3 % (2-11); NEUTROPHILS 66 % (40-80); PLATELET ESTIMATE INCREASED
== END | disposition home or self-care (01) ==
LOC: D.LABREF 17:58
PROVIDERS: ATTEND Student in an Organized Health Care Education/Training Program
DX: K75.0 Abscess of liver (principal)

== ENCOUNTER → 2018-10-17 08:12 | Outpatient (CLI) | payer OTHER ==
[2018-09-28 19:24] VITALS: BMI 31.5
== END | disposition home or self-care (01) ==
LOC: D.CT 08:12
PROVIDERS: ATTEND Student in an Organized Health Care Education/Training Program
DX: K75.0 Abscess of liver (principal)

== ENCOUNTER → 2018-10-17 20:55 | Outpatient (CLI) | payer OTHER ==
[2018-09-28 19:24] VITALS: BMI 31.5
[2018-10-17 21:06] LABS: EOSINOPHILS 8.8 % (0-7); HEMATOCRIT 35.3 % (42.0-54.0); HEMOGLOBIN 11.7 g/dL (13.5-17.5); IMMATURE GRANULOCYTES 0.6 % (0-5); LYMPHOCYTES 27.5 % (15-50); MCH 27.5 pg (26.0-34.0); MCHC 33.1 g/dL (31.0-37.0); MCV 83.1 fL (80.0-100.0); MEAN PLATELET VOLUME 9.4 fL (7.4-10.4); MONOCYTES 9.9 % (2-11); NEUTROPHILS 52.2 % (40-80); RBC 4.25 10x6/uL (4.20-6.10); RDW 14.6 % (11.5-14.5); WBC 6.3 10x3/uL (4.8-10.8)
[2018-10-17 21:16] LABS: PLATELET COUNT 304 10x3/uL (130-400)
[2018-10-17 21:18] LABS: CREATININE - SERUM 0.8 mg/dL (0.6-1.3)
== END | disposition home or self-care (01) ==
LOC: D.LABREF 20:55
PROVIDERS: ATTEND Student in an Organized Health Care Education/Training Program
DX: K25.0 Acute gastric ulcer with hemorrhage (principal)

== ENCOUNTER → 2018-11-17 07:48 | Outpatient (CLI) | payer OTHER ==
[2018-09-28 19:24] VITALS: BMI 31.5
== END | disposition home or self-care (01) ==
LOC: D.CT 07:48
PROVIDERS: ATTEND Student in an Organized Health Care Education/Training Program
DX: K75.0 Abscess of liver (principal)

== ENCOUNTER → 2018-12-23 13:42 | Outpatient (CLI) | payer OTHER ==
[2018-09-28 19:24] VITALS: BMI 31.5
== END | disposition home or self-care (01) ==
LOC: D.CT 13:42
PROVIDERS: ATTEND Family Medicine
DX: R10.84 Generalized abdominal pain (principal)

== ENCOUNTER → 2019-03-28 10:51 | Outpatient (CLI) | payer OTHER ==
[2018-09-28 19:24] VITALS: BMI 31.5
== END | disposition home or self-care (01) ==
LOC: D.CT 10:51
PROVIDERS: ATTEND Internal Medicine Pulmonary Disease
DX: R91.8 Other nonspecific abnormal finding of lung field (principal)